=== PATIENT | female | born 1930 | race Caucasian/White ===

== ENCOUNTER 2017-08-08 01:28 | Inpatient (IN) | payer MEDICARE ==
--- NOTE | 2017-08-08 02:33 | ED ---
Lower Extremity Injury HPI - General Chief Complaint: Extremity Injury, Lower Stated Complaint: Left Leg Injury Time Seen by Provider: 08/08/17 01:58 Source: patient, family Mode of arrival: EMS Limitations: no limitations - History of Present Illness Initial Comments: 87 years old female transferred from [facility], ER physician on duty requested to transfer to [facility] for fracture and family was requesting the patient to be treated and [facility]. I discussed that with the on-call orthopedic surgeon Dr. Edmond, Dr. Edmond agreed to transfer. On arrival patient is complaining about left hip pain no other complaints at all daughter found her on the floor there was no head injury no neck injury no chest pain no shortness of breath no abdominal pain no frequency urgency dysuria - Related Data Home Medications Medication Instructions Recorded Confirmed ALPRAZolam [ALPRAZolam] 0.25 mg PO BID 05/25/16 05/25/16 Albuterol Inhaler [Ventolin Hfa 1 puff INHALATION RT-TID 05/25/16 05/25/16 Inhaler] Aspirin EC [Ecotrin] 81 mg PO DAILY 05/25/16 05/25/16 Budesonide [Pulmicort] 0.5 mg INHALATION RT-BID 05/25/16 05/25/16 Docusate [Colace] 100 mg PO HS 05/25/16 05/25/16 Donepezil [Aricept] 5 mg PO HS 05/25/16 05/25/16 Enalapril [Vasotec] 20 mg PO BID 05/25/16 05/25/16 Fluticasone Propionate 1 spray EA NOSTRIL DAILY 05/25/16 05/25/16 Fluticasone Propionate [Flovent 2 puff INHALATION RT-DAILY PRN 05/25/16 05/25/16 Hfa 110mcg] Ipratropium-Albuterol Nebulize 3 ml INHALATION RT-QID 05/25/16 05/25/16 [Duoneb 0.5 mg-3 mg/3 ml Soln] Levothyroxine Sodium [Synthroid] 88 mcg PO DAILY@0600 05/25/16 05/25/16 Montelukast Sodium [Singulair] 10 mg PO HS 05/25/16 05/25/16 Omalizumab [Xolair] 150 mg SQ Q30D 05/25/16 05/25/16 Omeprazole [PriLOSEC] 20 mg PO AC-BRKFST 05/25/16 05/25/16 Sertraline HCl [Sertraline HCl] 50 mg PO DAILY 05/25/16 05/25/16 Simvastatin [Zocor] 20 mg PO HS 05/25/16 05/25/16 amLODIPine [Norvasc] 10 mg PO DAILY@1200 05/25/16 05/25/16 guaiFENesin SYRUP 100MG/5ML 5 ml PO Q4H PRN 05/25/16 05/25/16 [Robitussin] predniSONE [predniSONE] 10 mg PO DAILY 05/25/16 05/25/16 Allergies Allergy/AdvReac Type Severity Reaction Status Date / Time hydrocodone bitartrate AdvReac Nausea Verified 05/25/16 13:02 [From Vicodin] propoxyphene napsylate AdvReac Nausea Verified 05/25/16 13:02 [From Darvocet-N 100] Review of Systems ROS Statement: Those systems with pertinent positive or pertinent negative responses have been documented in the HPI. ROS Other: All systems not noted in ROS Statement are negative. Past Medical History Past Medical History: Asthma, COPD, Dementia, GERD/Reflux, Hyperlipidemia, Hypertension, Thyroid Disorder History of Any Multi-Drug Resistant Organisms: None Reported Past Surgical History: Orthopedic Surgery Additional Past Surgical History / Comment(s): Shoulder replacement. Past Psychological History: Depression Smoking Status: Current some day smoker Past Alcohol Use History: None Reported Past Drug Use History: None Reported General Exam - General Exam Comments Initial Comments: General: The patient is awake and alert, in no distress, and does not appear acutely ill. Skin: Skin is warm and dry and no rashes or lesions are noted. Eye: Pupils are equal, round and reactive to light, extra-ocular movements are intact; there is normal conjunctiva bilaterally. Ears, nose, mouth and throat: There are moist mucous membranes and no oral lesions. Neck: The neck is supple, there is no tenderness or JVD. Cardiovascular: There is a regular rate and rhythm. No murmur, rub or gallop is appreciated. Respiratory: To auscultation bilateral, no wheezing no rhonchi no distress respiratory lee noticed Gastrointestinal: Soft, non-distended, non-tender abdomen without masses or organomegaly noted. There is no rebound or guarding present. Bowel sounds are unremarkable. Back: There is no tenderness to palpation in the midline. There is no obvious deformity. Musculoskeletal: Left leg is shorter than the right, is externally rotated, patient is able to wiggle her toes no neurovascular compromise noticed Neurological: CN II-XII intact, Cranial nerves III through XII are intact. There are no obvious motor or sensory deficits. Coordination appears grossly intact. Speech is normal. Psychiatric: Cooperative, appropriate mood & affect, normal judgment. Limitations: no limitations Course Vital Signs 08/08/17 01:30 Temperature 97.3 F L Pulse Rate 85 Respiratory 16 Rate Blood Pressure 169/84 O2 Sat by Pulse 94 L Oximetry Patient's labs done at [facility] were reviewed, white count is 16, respiratory panel is normal except a slightly low sodium 129, urinalysis is negative chest x-ray is unremarkable left hip x-ray showed left hip fracture. She be admitted to Dr. Edmond's service service Disposition Clinical Impression: Hip fracture, left Disposition: ADMITTED IP TO THIS HOSP Condition: Good Referrals: Tegan Jeffries MD [Primary Care Provider] - 1-2 days
[2017-08-08] MEDS ORDERED: ONDANSETRON 4 MG/2 ML VIAL IVP PRN (02:38)
[2017-08-08] MEDS ORDERED: NALOXONE 0.4 MG/ML 1 ML VIAL IV PRN ×2 (02:38→14:34)
[2017-08-08] MEDS ORDERED: guaiFENesin SYRUP 100MG/5ML 200 MG/10 ML CUP PO PRN (02:45)
[2017-08-08] MEDS ORDERED: OMALIZUMAB 150 MG VIAL SQ SCH (02:45)
[2017-08-08] MEDS ORDERED: FLUTICASONE PROPIONATE INHALATION PRN (02:45)
[2017-08-08] MEDS ORDERED: HYDROmorphone 1 MG/ML 1 ML SYRINGE IVP STA (02:47)
[2017-08-08] MEDS ORDERED: HYDROmorphone 0.5 MG/0.5 ML SYRINGE ONE (03:30)
[2017-08-08] MEDS ORDERED: ONDANSETRON 4 MG/2 ML VIAL ONE (03:30)
[2017-08-08] MEDS: BUDESONIDE 0.5 MG/2 ML NEBU INHALATION SCH ×2 (07:16→20:07)
[2017-08-08] MEDS: IPRATROPIUM-ALBUTEROL 3 ML NEB INHALATION SCH ×4 (07:16→20:07)
[2017-08-08] MEDS ORDERED: ALBUTEROL INHALER 60 PUFF/8 GM INHALER INHALATION SCH (08:00)
[2017-08-08] MEDS: ALPRAZolam 0.25 MG TAB PO SCH (08:23)
[2017-08-08] MEDS: PANTOPRAZOLE 40 MG TABLET PO SCH (08:32)
[2017-08-08] MEDS: predniSONE 10 MG TAB PO SCH (08:32)
[2017-08-08] MEDS: LEVOTHYROXINE 88 MCG TAB PO SCH (08:32)
[2017-08-08] MEDS: SERTRALINE 50 MG TAB PO SCH (08:32)
[2017-08-08] MEDS: FLUTICASONE 50MCG/SPRAY NASAL 16GM EA NOSTRIL SCH (08:32)
[2017-08-08] MEDS: amLODIPine 10 MG TAB PO SCH (08:32)
[2017-08-08] MEDS: LISINOPRIL 20 MG TAB PO SCH ×2 (08:32→21:50)
[2017-08-08] MEDS: DEXTROSE 5%-0.9% NACL 1,000 ML IV SCH ×2 (09:05→16:24)
[2017-08-08] MEDS: HYDROmorphone 0.5 MG/0.5 ML SYRINGE IVP PRN ×2 (09:05→19:25)
--- NOTE | 2017-08-08 09:13 | P.HPOR ---
<Gloria Oglesby L - Last Filed: 08/08/17 09:01> History of Present Illness H&P Date: 08/08/17 This is an 87-year-old female who is admitted for left hip fracture. Patient is a poor historian and daughter is present. Patient's daughter states around 9 :30 PM last night she heard a noise in the patient's room. When the daughter went to check on the patient she found her lying flat on the floor next to her bed complaining of left leg pain. The daughter at this point called EMS and the patient was taken to [facility]. X-rays showed a left hip fracture and patient's family requested that the patient be transferred to [facility]. Patient is admitted for orthopedic evaluation. Patient denies any numbness, weakness, tingling. Review of Systems See HPI. Past Medical History Past Medical History: Asthma, COPD, Dementia, GERD/Reflux, Hyperlipidemia, Hypertension, Thyroid Disorder Additional Past Medical History / Comment(s): Severe reaction to general anesthesia in 2012, patient was severely weak, and "sick" according to daughter. Patient spent 2 weeks in rehab facility History of Any Multi-Drug Resistant Organisms: None Reported Past Surgical History: Orthopedic Surgery Additional Past Surgical History / Comment(s): Shoulder replacement. Past Anesthesia/Blood Transfusion Reactions: Previous Problems w/ Anesthesia Additional Psychological History / Comment(s): Grief when . Has been diagnosed with failure to thrive Smoking Status: Current some day smoker Past Alcohol Use History: None Reported Past Drug Use History: None Reported Medications and Allergies Home Medications Medication Instructions Recorded Confirmed Type Albuterol Inhaler [Ventolin Hfa 2 puff INHALATION RT-TID 05/25/16 08/08/17 History Inhaler] Aspirin EC [Ecotrin] 81 mg PO DAILY 05/25/16 08/08/17 History Budesonide [Pulmicort] 0.5 mg INHALATION RT-BID 05/25/16 08/08/17 History Enalapril [Vasotec] 20 mg PO BID 05/25/16 08/08/17 History Fluticasone Propionate 1 spray EA NOSTRIL DAILY 05/25/16 08/08/17 History Ipratropium-Albuterol Nebulize 3 ml INHALATION RT-QID 05/25/16 08/08/17 History [Duoneb 0.5 mg-3 mg/3 ml Soln] Levothyroxine Sodium [Synthroid] 88 mcg PO DAILY@0600 05/25/16 08/08/17 History Montelukast Sodium [Singulair] 10 mg PO HS 05/25/16 08/08/17 History Omalizumab [Xolair] 150 mg SQ Q30D 05/25/16 08/08/17 History Sertraline HCl [Sertraline HCl] 50 mg PO DAILY 05/25/16 08/08/17 History Simvastatin [Zocor] 20 mg PO HS 05/25/16 08/08/17 History amLODIPine [Norvasc] 10 mg PO DAILY@1200 05/25/16 08/08/17 History predniSONE [predniSONE] 10 mg PO DAILY 05/25/16 08/08/17 History Calcium Carb-Vit D 500Mg-200Un 2 tab PO DAILY 08/08/17 08/08/17 History [Oscal 500+D] Donepezil [Aricept] 10 mg PO HS 08/08/17 08/08/17 History Multivitamins, Thera [Multivitamin 1 tab PO DAILY 08/08/17 08/08/17 History (formulary)] Allergies Allergy/AdvReac Type Severity Reaction Status Date / Time hydrocodone bitartrate AdvReac Nausea Verified 08/08/17 11:57 [From Vicodin] propoxyphene napsylate AdvReac Nausea Verified 08/08/17 11:57 [From Darvocet-N 100] Physical Examination On exam patient is lying comfortably in bed sleeping. Patient's left lower extremity is shortened and externally rotated. There is some erythema over the lateral malleolus of the left ankle. Calf is soft and nontender. Dorsalis pedis pulses 2+. Neurovascular status intact. There is no tenderness over bilateral shoulders, bilateral upper extremities including wrists and hand and there is no tenderness over the right lower extremity. There is an abrasion to the bhat of the right lower extremity. There is some bruising to the left upper extremity but there is no associated tenderness in these areas. Neurovascular status to bilateral upper extremities is intact. Results X-rays of the left hip are reviewed showing a subcapital fracture left femur. Assessment and Plan (1) Closed left hip fracture Current Visit: Yes Status: Acute Code(s): S72.002A - FRACTURE OF UNSP PART OF NECK OF LEFT FEMUR, INIT SNOMED Code(s): 060794397 Plan: #1. Patient is to remain NPO. #2. Medical clearance pending #3. Patient is scheduled for a left hemiarthroplasty at [address] Noel Edmond today if cleared medically. <Flaquita Cuevas - Last Filed: 08/08/17 13:10> Physical Examination Osteopathic Statement: *. No significant issues noted on an osteopathic structural exam other than those noted in the History and Physical/Consult. Assessment and Plan Assessment: I saw the patient at bedside and discuss case with Dr. Edmond as well as with medicine doctors. I reviewed the images myself. I discussed the issues with the patient at length and the family. Patient had sustained a comminuted femoral neck fracture due to her fall. She is unable to mobilize and her bed and despite her other medical issues we feel that is the best option for her to pursue surgical intervention with hip hemiarthroplasty. This will allow her some mobilization and ease of movement and care. We discussed this at length with her and her family and they like to proceed with surgical intervention as soon as possible. We discussed the risk of occasions alternatives and benefits. We answered questions lesser ability C understand they've elected proceed with surgical intervention and signed informed consent.
--- NOTE | 2017-08-08 11:39 | P.CONS ---
History of Present Illness - Reason for Consult Consult date: 08/08/17 Medical clearance - Chief Complaint fall - History of Present Illness 87-year-old female who presented to an outside emergency room after she sustained a fall at home in the left side. Patient was evaluated and was found to have left hip fracture. Jacobo Castellanos currently being evaluated for pelvic surgery this afternoon. I was asked to see her for medical clearance. Patient is to the face. Her daughter at bedside. Patient has underlying dementia and very poor historian. Apparently she lives at home with her family and she is usually able to get up and walk around. Patient herself denies any chest pain shortness of breath. Review of Systems Review of system: 14 points review of systems were obtained and were negative except to what were mentioned in the HPI. Past Medical History Past Medical History: Asthma, COPD, Dementia, GERD/Reflux, Hyperlipidemia, Hypertension, Thyroid Disorder Additional Past Medical History / Comment(s): Severe reaction to general anesthesia in 2012, patient was severely weak, and "sick" according to daughter. Patient spent 2 weeks in rehab facility History of Any Multi-Drug Resistant Organisms: None Reported Past Surgical History: Orthopedic Surgery Additional Past Surgical History / Comment(s): Shoulder replacement. Past Anesthesia/Blood Transfusion Reactions: Previous Problems w/ Anesthesia Additional Psychological History / Comment(s): Grief when . Has been diagnosed with failure to thrive Smoking Status: Current some day smoker Past Alcohol Use History: None Reported Past Drug Use History: None Reported Medications and Allergies Home Medications Medication Instructions Recorded Confirmed Type Albuterol Inhaler [Ventolin Hfa 2 puff INHALATION RT-TID 05/25/16 08/08/17 History Inhaler] Aspirin EC [Ecotrin] 81 mg PO DAILY 05/25/16 08/08/17 History Budesonide [Pulmicort] 0.5 mg INHALATION RT-BID 05/25/16 08/08/17 History Enalapril [Vasotec] 20 mg PO BID 05/25/16 08/08/17 History Fluticasone Propionate 1 spray EA NOSTRIL DAILY 05/25/16 08/08/17 History Ipratropium-Albuterol Nebulize 3 ml INHALATION RT-QID 05/25/16 08/08/17 History [Duoneb 0.5 mg-3 mg/3 ml Soln] Levothyroxine Sodium [Synthroid] 88 mcg PO DAILY@0600 05/25/16 08/08/17 History Montelukast Sodium [Singulair] 10 mg PO HS 05/25/16 08/08/17 History Omalizumab [Xolair] 150 mg SQ Q30D 05/25/16 08/08/17 History Sertraline HCl [Sertraline HCl] 50 mg PO DAILY 05/25/16 08/08/17 History Simvastatin [Zocor] 20 mg PO HS 05/25/16 08/08/17 History amLODIPine [Norvasc] 10 mg PO DAILY@1200 05/25/16 08/08/17 History predniSONE [predniSONE] 10 mg PO DAILY 05/25/16 08/08/17 History Calcium Carb-Vit D 500Mg-200Un 2 tab PO DAILY 08/08/17 08/08/17 History [Oscal 500+D] Donepezil [Aricept] 10 mg PO HS 08/08/17 08/08/17 History Multivitamins, Thera [Multivitamin 1 tab PO DAILY 08/08/17 08/08/17 History (formulary)] Allergies Allergy/AdvReac Type Severity Reaction Status Date / Time hydrocodone bitartrate AdvReac Nausea Verified 05/25/16 13:02 [From Vicodin] propoxyphene napsylate AdvReac Nausea Verified 05/25/16 13:02 [From Darvocet-N 100] Physical Exam Vitals: Vital Signs Temp Pulse Pulse Pulse Resp BP BP 08/08/17 07:30 112 H 08/08/17 07:16 108 H 08/08/17 07:00 98.5 F 114 H 140/73 08/08/17 06:55 08/08/17 04:30 96 08/08/17 03:15 97.5 F L 110 H 16 165/79 08/08/17 02:55 91 18 166/83 08/08/17 01:30 97.3 F L 85 16 169/84 Pulse Ox 08/08/17 07:30 08/08/17 07:16 08/08/17 07:00 93 L 08/08/17 06:55 90 L 08/08/17 04:30 08/08/17 03:15 92 L 08/08/17 02:55 92 L 08/08/17 01:30 94 L Intake and Output 08/07/17 08/08/17 08/08/17 22:59 06:59 14:59 Other: Voiding Method Indwelling Catheter Indwelling Catheter Weight 36.287 kg General: The patient is awake and alert, in no distress Eye: there is normal conjunctiva bilaterally. Neck: The neck is supple, there is no JVD. Cardiovascular: Normal S1-S2, no S3-S4, no murmurs. Respiratory: Lungs clear to auscultation bilaterally Gastrointestinal: Abdomen is soft, nontender Musculoskeletal: There is no pedal edema. Neurological:. Speech is normal. Skin: Skin is warm and dry Assessment and Plan Plan: 1. Preoperative clearance: Today, I reviewed her lab work results and twelve- lead EKG. Patient is an acceptable risk for scheduled surgery. She is medically clear 2. Left hip fracture awaiting surgical repair this afternoon 3. Essential hypertension, blood pressure well-controlled 4. COPD with no evidence of exacerbation 5. hypothyroidism Today, I reviewed her medication list and lab work results. Continue current regimen. Thank you very much for the consultation. I will continue to follow up on the patient closely.
[2017-08-08] MEDS ORDERED: IV FLUID CONTINUATION 1,000 ML IV ONE (11:50)
[2017-08-08] MEDS ORDERED: fentaNYL (PF) 50 MCG/ML 2 ML AMP IV ONE (12:54)
[2017-08-08] MEDS ORDERED: KETAMINE 10 MG/ML 20 ML VIAL ONE (12:59)
[2017-08-08] MEDS ORDERED: MIDAZOLAM 2 MG/2 ML VIAL ONE (12:59)
[2017-08-08] MEDS ORDERED: PHENYLEPHRINE-0.9% NACL SYG 1 MG/10 ML SYRINGE ONE (12:59)
[2017-08-08] MEDS ORDERED: SODIUM CHLORIDE 0.9% 50 ML with ceFAZolin 2,000 MG IV ONE ×2 (13:30)
[2017-08-08 13:49] VITALS: BMI 17.3
[2017-08-08] MEDS ORDERED: LACTATED RINGERS 1,000 ML IV ONE (13:53)
[2017-08-08] MEDS ORDERED: ceFAZolin 3,000 MG in SODIUM CHLORIDE 0.9% IRRIGATIO 3,000 ML IRRIGATION ONE (13:53)
[2017-08-08] MEDS ORDERED: HYDROmorphone 0.5 MG/0.5 ML SYRINGE IVP PRN (14:34)
--- NOTE | 2017-08-08 14:34 | P.OP ---
Date of Procedure: 08/08/17 Preoperative Diagnosis: Left hip femoral neck fracture, acute displaced secondary to fall Postoperative Diagnosis: Same Anesthesia: spinal Pathology: other (Femoral head to pathology) Condition: stable Disposition: PACU Description of Procedure: Preoperative diagnosis: Left Femoral neck fracture, acute displaced secondary to fall Postoperative diagnosis: Same Procedure: Left Hip hemiarthroplasty Surgeon: Dr. Mason White.: Isidoro Butler who is present that the entire the case persistence during positioning dissection exposure placement of hardware and closure Anesthesia: Spinal per Dr. Jordan Estimated blood loss: Approximately 50 mL Components implanted: [employer] collarless fracture stem unipolar size 1 with a 43 mm head and -3 neck Disposition: To recovery room in good stable condition Operative indications The patient sustained a injury and suffered a femoral neck fracture which was displaced and angulated. She has multiple medical issues and has limited ambulation and had a fall from her bed. She was having severe pain at her hip with any sort of motion and was unable to sit up or move in bed at all due to her new hip fracture. We were involved in the case in regard to his hip fracture. After evaluation it was determined that they would be a candidate for hip hemiarthroplasty via surgical intervention. This would give them the best chance of mobilization and ambulation. We discussed the range of treatment options from conservative to surgical. They elected proceed with surgical intervention. We answered their questions to the best of our ability healing which they can understand. They signed an informed consent. Operative summary After obtaining informed consent evaluation by anesthesia, preoperative evaluation and clearance for medical service, the patient was identified and prepped [place] area and the surgical site was marked. There brought to the operating room where the given appropriate anesthesia by the anesthesia department in standard fashion without any complications. Once the anesthesia was established we were able to position the patient. There placed in a lateral decubitus position with the operative side up being careful to pad any bony prominences and pressure points and place a excellent roll appropriately. The airway and C-spine was monitored continuously. Once patient was well positioned lower extremity was prepped and draped in normal standard sterile fashion. An appropriate keystone protocol and timeout was completed and were able to proceed with surgery. A curvilinear incision was established over the greater trochanter. Dissection was taken down to the tensor fascia montserrat which was split in line with its fibers and extended proximally into the gluteal fibers. We performed a posterior lateral approach. A Charnley retractor was established. The trochanteric bursa was inflamed and removed. I was able to then dissect down off the posterior aspect of the greater trochanter taking the piriformis tendon and the posterior capsule in one full-thickness flap and tacking it with suture. This expose the fracture at the femoral neck which was easily identified. A guide was used to establish the appropriate femoral neck cut and a bone- cutting saw was used to establish the femoral neck cut and good alignment and good position. All the bony fragments were removed. I was then able to use a corkscrew device to remove the femoral head from the acetabulum. Any loose fragments in the acetabulum were removed. The femoral head was measured for the appropriate size implant and then passed off for pathology. Appropriate retractors were placed and I established a lateral box cut chisel. I then used a starting reamer to establish the femoral canal area I then sequentially reamed with sequential reamers until we had good bony chatter distally. With this we then started to broach with sequential broaches to the appropriate sized to we had good fit and fill. There is no evidence any fracture in the possible femur. With the appropriate size broach well seated and stable I placed the trial neck and head. A gentle reduction was performed to get good reduction. The hip was taken through a good range of motion and found to be stable in the position of sleep and through a range of motion. It had a good shuck test. We were able to then dislocate the trial prosthesis. The broach was found to remain stable. It was then removed. The wound was copiously irrigated and suctioned dry with pulsatile lavage. The appropriate size femoral stem was chosen and positioned and placed in good alignment and good position with excellent fit and fill seated appropriately over the calcar. It was checked and found to be stable. The trunnion was cleaned and dried the femoral head was then positioned over the femoral neck malleted in position checked and found to be stable. The hip prosthesis was then gently reduced back into the acetabulum and found to have excellent position and excellent stability and excellent range of motion with stability. There is no evidence of dislocation or fracture. The wound was copiously irrigated and suctioned dry. We are able to proceed with closure. The piriformis and posterior capsule were reapproximated to the posterior aspect of the greater trochanter with transosseous stitches. The wound was irrigated and suctioned dry. The fascia was closed with #2 Quill for watertight closure. Subcutaneous tissue was irrigated and suctioned dry. Subcu tissues closed with 2-0 Vicryl subcuticular tissue was closed with 30 Quill. Wound is clean and dried and dressed with Dermabond Adaptic 4 x 4's ABDs and tape. Drapes were broken down, the hip was held in stable position, and an abduction pillow was placed. The patient was then transferred back to their hospital bed being careful to maintain the hip and C-spine alignment and airway. Once stable to patient was transferred back to the postanesthesia care unit to be readmitted for pain control and DVT prophylaxis medical management and monitoring and mobilization we will continue follow patient closely throughout their postoperative course.
--- NOTE | 2017-08-08 15:06 | XR ---
Left hip HISTORY: Status post hemiarthroplasty Single frontal view of the left hip Patient is status post left hip hemiarthroplasty. Bone mineralization is reduced. Alignment is anatom ic. Disease present in the soft tissues. There are atherosclerotic vascular calcifications. IMPRESSION: Orthopedic follow-up
--- NOTE | 2017-08-08 16:56 | CDI ---
[facility] [place] [address] [place] [address] Documentation Clarification Form Date: 08/08/171652 From: Patsy Ko RN, CCDS Admit Date: 08/08/17237 Patient Name: Merari Schilling Dr. 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 Mild Protein-Calorie Malnutrition Moderate Protein-Calorie Malnutrition Severe Protein-Calorie Malnutrition Other condition, please specify Unable to determine Please document in your progress notes and discharge summary in order to capture severity of illness and risk of mortality. Include clinical findings that support your diagnosis. FYI: Press F11 to launch patient chart. This form is not part of the Legal Medical Record MTDD
[2017-08-08] MEDS: ceFAZolin 2 GM in SODIUM CHLORIDE 0.9% 100 ML IVPB SCH (17:04)
[2017-08-08 18:00] LABS: Basophils # (A) 0.1 k/uL (0-0.2); Basophils % (A) 0 %; CH 30.8; CHCM 32.2; Eosinophils # (A) 0.1 k/uL (0-0.7); Eosinophils % (A) 1 %; HCT 37.6 % (34.0-46.0); HDW 2.11; HGB 11.9 gm/dL (11.4-16.0); Luc # (Auto) 0.14; Luc % (Auto) 1; Lymphocytes # (A) 1.3 k/uL (1.0-4.8); Lymphocytes % (A) 10 %; MCH 30.3 pg (25.0-35.0); MCHC 31.6 g/dL (31.0-37.0); MCV 96.2 fL (80.0-100.0); Mean Platelet Volume 7.4; Monocytes # (A) 0.9 k/uL (0-1.0); Monocytes % (A) 7 %; Neutrophils # (A) 10.2 k/uL (1.3-7.7); Neutrophils % (A) 80 %; RBC 3.91 m/uL (3.80-5.40); RDW 14.5 % (11.5-15.5); WBC 12.7 k/uL (3.8-10.6); WBC (Perox) 13.62
[2017-08-08] MEDS: ATORVASTATIN 10 MG TAB PO SCH (21:49)
[2017-08-08] MEDS: HEPARIN SODIUM,PORCINE 5,000 UNIT/ML 1 ML VIAL SQ SCH (21:50)
[2017-08-08] MEDS: DONEPEZIL 10 MG TAB PO SCH (21:50)
[2017-08-08] MEDS: MONTELUKAST 10 MG TAB PO SCH (21:50)
[2017-08-08] MEDS: SENNOSIDES-DOCUSATE SODIUM 1 EACH TAB PO SCH (21:50)
[2017-08-09] MEDS: HYDROmorphone 0.5 MG/0.5 ML SYRINGE IVP PRN ×2 (00:11→05:43)
[2017-08-09] MEDS: ceFAZolin 2 GM in SODIUM CHLORIDE 0.9% 100 ML IVPB SCH (00:11)
[2017-08-09] MEDS: ALPRAZolam 0.25 MG TAB PO SCH ×3 (02:40→21:16)
[2017-08-09] MEDS: DEXTROSE 5%-0.9% NACL 1,000 ML IV SCH ×2 (05:45→14:59)
[2017-08-09] MEDS: LEVOTHYROXINE 88 MCG TAB PO SCH (05:47)
[2017-08-09] MEDS: IPRATROPIUM-ALBUTEROL 3 ML NEB INHALATION SCH ×4 (07:46→19:58)
[2017-08-09] MEDS: BUDESONIDE 0.5 MG/2 ML NEBU INHALATION SCH ×2 (07:46→19:58)
[2017-08-09] MEDS: SERTRALINE 50 MG TAB PO SCH (08:17)
[2017-08-09] MEDS: FLUTICASONE 50MCG/SPRAY NASAL 16GM EA NOSTRIL SCH ×2 (08:17→08:23)
[2017-08-09] MEDS: predniSONE 10 MG TAB PO SCH (08:18)
[2017-08-09] MEDS: CALCIUM CARB-VIT D 500MG-200UN 1 EACH TAB PO SCH (08:18)
[2017-08-09] MEDS: LISINOPRIL 20 MG TAB PO SCH ×2 (08:18→21:20)
[2017-08-09] MEDS: PANTOPRAZOLE 40 MG TABLET PO SCH (08:18)
[2017-08-09] MEDS: ASPIRIN 81 MG PO SCH (08:18)
[2017-08-09] MEDS: HEPARIN SODIUM,PORCINE 5,000 UNIT/ML 1 ML VIAL SQ SCH ×2 (08:26→21:21)
[2017-08-09] MEDS: ENOXAPARIN 30 MG/0.3 ML SYRINGE SQ SCH (08:26)
--- NOTE | 2017-08-09 09:29 | P.PN ---
Progress Note - Text Progress Note Date: 08/09/17 Postoperative day #1 Patient is seen and examined today at bedside. The patient has some pain around the surgical site as expected. Pain is being controlled with medication. She is awake and alert and answering questions but is somewhat confused to her environment. She denies any nausea or vomiting Physical Exam Afebrile with stable vital signs Abdomen is soft nontender. Chest has good excursion deep and space expiration The incision site is clean dry and intact. No erythema there is no purulence. Her thigh is soft. There is no active drainage from her incision site. Extremities have not had neurologic change from prior to surgery. She has sustained dorsal flexion plantarflexion and EHL intact. Her left hip is less painful and that she is able to internally actually rotated passively Calves and thighs were soft nontender without evidence of DVT. Assessment/Plan Postoperative day #1 status post left hip hemiarthroplasty for her femoral neck fracture Patient is progressing as expected from the surgery. We will continue to increase the patient's mobilization with therapy. She may weight-bear as tolerated but should continue with her hip dislocation precautions. The patient has some confusion which is essentially her baseline and she is overall comfortable and cooperative. She will need placement posthospitalization which make her potentially tomorrow if she is able from a medical standpoint. We will continue pain control with oral or IV medications. We'll continue to follow patient closely.
[2017-08-09] MEDS: Acetaminophen-Codeine 300-30mg TAB PO PRN ×2 (11:02→21:16)
[2017-08-09] MEDS: amLODIPine 10 MG TAB PO SCH (11:54)
[2017-08-09] MEDS: MULTIVITAMINS, THERA 1 EACH TAB PO SCH (11:54)
--- NOTE | 2017-08-09 12:13 | P.PN ---
Subjective Principal diagnosis: Hip fracture Patient is doing well today. She tolerated the surgery well. She was up in the chair when I saw her. Objective - Vital Signs Vital signs: Vital Signs Temp 97.7 F 08/09/17 07:00 Pulse 92 08/09/17 08:02 Resp 16 08/09/17 07:00 BP 106/59 08/09/17 11:54 Pulse Ox 89 L 08/09/17 07:00 Intake & Output 08/08/17 08/09/17 08/09/17 18:59 06:59 18:59 Intake Total 1033 1428 Output Total 1100 1280 Balance -67 148 Weight 36.287 kg Intake: IV 1033 1328 Dextrose 5%-0.9% NaCl 1, 332 1328 000 ml @ 83 mls/hr IV . Q12H3M MARY Rx#:[id number] Intake, IV Titration 100 Amount ceFAZolin 2 gm In Sodium 100 Chloride 0.9% 100 ml @ 100 mls/hr IVPB Q8HR MARY Rx#:[id number] Output: Urine 1000 1280 Uretheral (Woodson) 400 Estimated Blood Loss 100 Other: Voiding Method Indwelling Catheter Indwelling Catheter Indwelling Catheter - Exam General: The patient is awake and alert, in no distress Eye: there is normal conjunctiva bilaterally. Neck: The neck is supple, there is no JVD. Cardiovascular: Normal S1-S2, no S3-S4, no murmurs. Respiratory: Lungs clear to auscultation bilaterally Gastrointestinal: Abdomen is soft, nontender Musculoskeletal: There is no pedal edema. Neurological:. Speech is normal. Skin: Skin is warm and dry - Labs CBC & Chem 7: 08/08/17 17:37 Labs: Abnormal Lab Results - Last 24 Hours (Table) 08/08/17 Range/Units 17:37 WBC 12.7 H (3.8-10.6) k/uL Neutrophils # 10.2 H (1.3-7.7) k/uL Assessment and Plan Plan: 1. Left hip fracture status post left hip hemiarthroplasty. Continue postoperative care. 2. Physical debility, awaiting PT/OT. Family are interested in rehab. 3. Essential hypertension, blood pressure well-controlled 4. COPD with no evidence of exacerbation 5. hypothyroidism Today, I reviewed her medication list and lab work results. Continue current regimen. Thank you very much for the consultation. I will continue to follow up on the patient closely.
--- NOTE | 2017-08-09 13:46 | CDI ---
In responding to this query, please exercise your independent professional judgment. The [facility] Coding Staff and Clinical Documentation Specialists appreciate your assistance in clarifying documentation, maintaining compliance with coding guidelines, accurately documenting patients condition and capturing severity of illness. The fact that a question is asked does not imply that any particular answer is desired or expected. Communication forms are a method of clarifying documentation and are not made part of the Legal Health Record. Thank you in advance for your clarification. Last Revision, August 2015 Mahi Castellanos [address] [place] [place] [address] Documentation Clarification Form 2nd request Date: 08/08/2017 4:46:00 PM From: Patsy Ko RN, CCDS Admit Date: 08/08/2017 2:38:00 AM Patient Name: Merari Schilling Visit Number: [id number] Dr. Sabra Chaudhari History/Risk Factors: Hx of Adult failure to thrive, Asthma, COPD, Dementia, HTN, Hypothyroid Clinical Indicators: Labs: Albumin/ Pre albumin/Total Protein: Current BMI: 17.3 Insufficient energy intake: NPO Loss of subcutaneous fat: Appears underweight per dietary consult Loss of muscle mass: Stage 2 PU on buttocks and ankle per dietary Consult Fluid accumulation: Decreased hand horse doctor strength: Treatment: Dietary Consult: Completed 08/08 Supplements: Enlive TID Lab monitoring: AM Daily In your professional opinion, can you please clarify if these findings signify one of the following conditions? Mild Protein-Calorie Malnutrition Moderate Protein-Calorie Malnutrition Severe Protein-Calorie Malnutrition Other condition, please specify Unable to determine Please document in your progress notes and discharge summary in order to capture severity of illness and risk of mortality. Include clinical findings that support your diagnosis. FYI: Press F11 to launch patient chart. HOWARD
[2017-08-09] MEDS: SENNOSIDES-DOCUSATE SODIUM 1 EACH TAB PO SCH (21:16)
[2017-08-09] MEDS: MONTELUKAST 10 MG TAB PO SCH (21:19)
[2017-08-09] MEDS: DONEPEZIL 10 MG TAB PO SCH (21:20)
[2017-08-09] MEDS: ATORVASTATIN 10 MG TAB PO SCH (21:20)
[2017-08-10] MEDS: DEXTROSE 5%-0.9% NACL 1,000 ML IV SCH ×2 (02:15→15:45)
[2017-08-10] MEDS: LEVOTHYROXINE 88 MCG TAB PO SCH (05:01)
[2017-08-10] MEDS: Acetaminophen-Codeine 300-30mg TAB PO PRN ×5 (05:03→21:00)
[2017-08-10 07:56] LABS: Basophils % (A) 0 %; CH 29.7; CHCM 31.3; Eosinophils # (A) 0.1 k/uL (0-0.7); Eosinophils % (A) 0 %; HCT 31.7 % (34.0-46.0); HDW 2.09; Luc # (Auto) 0.26; Luc % (Auto) 2; Lymphocytes # (A) 1.3 k/uL (1.0-4.8); Lymphocytes % (A) 9 %; MCH 29.6 pg (25.0-35.0); MCV 95.5 fL (80.0-100.0); Mean Platelet Volume 7.3; Monocytes # (A) 1.1 k/uL (0-1.0); Monocytes % (A) 8 %; Neutrophils # (A) 10.7 k/uL (1.3-7.7); Neutrophils % (A) 80 %; RBC 3.32 m/uL (3.80-5.40); RDW 13.6 % (11.5-15.5); WBC 13.4 k/uL (3.8-10.6); WBC (Perox) 13.68
[2017-08-10 07:59] LABS: HGB 9.8 gm/dL (11.4-16.0)
[2017-08-10] MEDS: IPRATROPIUM-ALBUTEROL 3 ML NEB INHALATION SCH ×4 (08:12→19:35)
[2017-08-10] MEDS: BUDESONIDE 0.5 MG/2 ML NEBU INHALATION SCH ×2 (08:12→19:35)
[2017-08-10] MEDS: ENOXAPARIN 30 MG/0.3 ML SYRINGE SQ SCH (08:38)
[2017-08-10] MEDS: CALCIUM CARB-VIT D 500MG-200UN 1 EACH TAB PO SCH (08:38)
[2017-08-10] MEDS: ALPRAZolam 0.25 MG TAB PO SCH ×2 (08:39→20:38)
[2017-08-10] MEDS: predniSONE 10 MG TAB PO SCH (08:39)
[2017-08-10] MEDS: SERTRALINE 50 MG TAB PO SCH (08:39)
[2017-08-10] MEDS: PANTOPRAZOLE 40 MG TABLET PO SCH (08:39)
[2017-08-10] MEDS: FLUTICASONE 50MCG/SPRAY NASAL 16GM EA NOSTRIL SCH (08:39)
[2017-08-10] MEDS: ASPIRIN 81 MG PO SCH (08:39)
[2017-08-10] MEDS: LISINOPRIL 20 MG TAB PO SCH ×2 (08:49→21:32)
--- NOTE | 2017-08-10 08:59 | P.PN ---
Subjective Progress Note Date: 08/10/17 This is an 87-year-old female who is status post left hemiarthroplasty. This is postoperative day #1. Patient is lying in bed comfortably today. Patient has no new complaints today. Objective - Vital Signs Vital signs: Vital Signs Temp 97.7 F 08/10/17 07:00 Pulse 80 08/10/17 08:15 Resp 16 08/10/17 08:15 BP 110/61 08/10/17 07:00 Pulse Ox 99 08/10/17 08:15 Intake & Output 08/09/17 08/10/17 08/10/17 18:59 06:59 18:59 Intake Total 500 Output Total 800 200 Balance -300 -200 Intake: Oral 500 Output: Urine 800 200 Uretheral (Woodson) 800 Other: Voiding Method Indwelling Catheter Diaper # Voids 1 - Exam Patient is lying in bed in no acute distress. On exam abductor pillow is in place. There is tenderness over the left hip. Dressing is intact and dry. Calf is soft and non-tender. Patient is able to move the foot and ankle without difficulty. Neurovascular status intact. - Labs CBC & Chem 7: 08/10/17 07:06 Labs: Abnormal Lab Results - Last 24 Hours (Table) 08/10/17 Range/Units 07:06 WBC 13.4 H (3.8-10.6) k/uL RBC 3.32 L (3.80-5.40) m/uL Hgb 9.8 L D (11.4-16.0) gm/dL Hct 31.7 L (34.0-46.0) % Neutrophils # 10.7 H (1.3-7.7) k/uL Monocytes # 1.1 H (0-1.0) k/uL Assessment and Plan (1) Closed left hip fracture Current Visit: Yes Status: Acute Code(s): S72.002A - FRACTURE OF UNSP PART OF NECK OF LEFT FEMUR, INIT SNOMED Code(s): 267574702 (2) S/P hip hemiarthroplasty Current Visit: Yes Status: Acute Code(s): Z96.649 - PRESENCE OF UNSPECIFIED ARTIFICIAL HIP JOINT SNOMED Code(s): 824771241 (3) Hip fracture, left Current Visit: Yes Status: Acute Code(s): S72.002A - FRACTURE OF UNSP PART OF NECK OF LEFT FEMUR, INIT SNOMED Code(s): 156603404 Plan: Continue routine postop care. Continue antocoagulation. Weightbearing as tolerated with a walker Daily dressing changes, keep incision clean and dry Continue hip precautions with abductor pillow Possible discharge to rehab today or tomorrow.
[2017-08-10] MEDS: FERROUS SULFATE 325 MG TAB PO SCH ×2 (09:07→20:39)
[2017-08-10] MEDS ORDERED: SODIUM CHLORIDE 0.9% 250 ML IV ONE (10:36)
--- NOTE | 2017-08-10 11:01 | P.PN ---
Subjective Progress Note Date: 08/10/17 87-year-old female who presented to an outside emergency room after she sustained a fall at home in the left side. Patient was evaluated and was found to have left hip fracture. Jacobo Castellanos currently being evaluated for pelvic surgery this afternoon. I was asked to see her for medical clearance. Patient is to the face. Her daughter at bedside. Patient has underlying dementia and very poor historian. Apparently she lives at home with her family and she is usually able to get up and walk around. Patient herself denies any chest pain shortness of breath. Patient was in hospice before she presented to the emergency room. She was taken off of hospice to proceed with the orthopedic procedure. 08/10/2017 patient had left hip hemiarthroplasty completed on 08/08/2017. Patient is currently sitting in bedside chair. Pain is tolerable. Denies any chest pain or shortness breath. Denies any nausea or vomiting. Passing gas no bowel movement yet. Denies any burning with urination. Patient's blood pressures been on the lower side. Sessile pressure in the 90s. She will receive a small fluid bolus. Parameters have been place her on blood pressure pills Norvasc dose has been decreased from 10-5 mg daily. White count is 13.4. However she is on prednisone which is also a home medication. Objective - Vital Signs Vital signs: Vital Signs Temp 97.7 F 08/10/17 07:00 Pulse 80 08/10/17 08:15 Resp 16 08/10/17 08:15 BP 92/53 08/10/17 10:07 Pulse Ox 99 08/10/17 08:15 Intake & Output 08/09/17 08/10/17 08/10/17 18:59 06:59 18:59 Intake Total 500 Output Total 800 200 Balance -300 -200 Intake: Oral 500 Output: Urine 800 200 Uretheral (Woodson) 800 Other: Voiding Method Indwelling Catheter Diaper # Voids 1 - Exam Head normocephalic Neck supple Lungs clear to auscultation bilaterally no wheezing or crackles Heart regular rate and rhythm S1-S2, no rub or gallop Abdomen is soft nontender nondistended positive bowel sounds no hepatosplenomegaly Extremities no edema. Left hip incision site clean dry and intact. Neuro alert and orientated to 3. Hard of hearing - Labs CBC & Chem 7: 08/10/17 07:06 Labs: Abnormal Lab Results - Last 24 Hours (Table) 08/10/17 Range/Units 07:06 WBC 13.4 H (3.8-10.6) k/uL RBC 3.32 L (3.80-5.40) m/uL Hgb 9.8 L D (11.4-16.0) gm/dL Hct 31.7 L (34.0-46.0) % Neutrophils # 10.7 H (1.3-7.7) k/uL Monocytes # 1.1 H (0-1.0) k/uL Assessment and Plan Plan: 1. Left hip fracture status post left hip hemiarthroplasty. Continue postoperative care. 2. Physical debility, awaiting PT/OT. Family are interested in rehab. 3. Essential hypertension on patient having some episodes of hypotension. Will give a small fluid bolus. Hold lisinopril this morning. Place parameters around both the lisinopril and Norvasc. Decrease Norvasc from 10-5 mg daily. 4. COPD with no evidence of exacerbation 5. hypothyroidism 6. Leukocytosis likely to patient's chronic prednisone. No evidence of infection at incision site. Also will order incentive spirometer. Anticipating discharge to ECF on Sunday DVT prophylaxis Lovenox I performed an examination of the patient and discussed their management with the physician [employer] Business Consultant. I have reviewed the Physician Franchise Business Consultant's notes and agree with the documented findings and plan of care Time with Patient: Greater than 30 (Greater than 50% of the total time spent in counseling and coordination of care.I performed an examination of the patient and discussed their management with the physician Franchise Business Consultant. I have reviewed the Physician Franchise Business Consultant's notes and agree with the documented findings and plan of care)
[2017-08-10] MEDS: SODIUM CHLORIDE 0.9% 1,000 ML IV SCH ×2 (11:04→21:00)
[2017-08-10] MEDS: amLODIPine 5 MG TAB PO SCH (13:06)
[2017-08-10] MEDS: MULTIVITAMINS, THERA 1 EACH TAB PO SCH (13:14)
[2017-08-10] MEDS: MONTELUKAST 10 MG TAB PO SCH (20:38)
[2017-08-10] MEDS: ATORVASTATIN 10 MG TAB PO SCH (20:38)
[2017-08-10] MEDS: SENNOSIDES-DOCUSATE SODIUM 1 EACH TAB PO SCH (20:38)
[2017-08-10] MEDS: DONEPEZIL 10 MG TAB PO SCH (20:39)
[2017-08-11] MEDS: LEVOTHYROXINE 88 MCG TAB PO SCH (05:15)
[2017-08-11] MEDS: BUDESONIDE 0.5 MG/2 ML NEBU INHALATION SCH ×2 (07:19→19:57)
[2017-08-11] MEDS: IPRATROPIUM-ALBUTEROL 3 ML NEB INHALATION SCH ×4 (07:19→19:57)
--- NOTE | 2017-08-11 09:10 | P.PN ---
Subjective Progress Note Date: 08/11/17 This is an 87-year-old female who is status post left hemiarthroplasty. This is postoperative day #2. Patient is lying in bed comfortably today. Patient has no new complaints today. Objective - Vital Signs Vital signs: Vital Signs Temp 97.0 F L 08/11/17 07:59 Pulse 66 08/11/17 07:59 Resp 16 08/11/17 07:59 BP 130/59 08/11/17 07:59 Pulse Ox 95 08/11/17 07:59 Intake & Output 08/10/17 08/11/17 08/11/17 18:59 06:59 18:59 Intake Total 500 415 Balance 500 415 Weight 36.287 kg Intake: Intake, IV Titration 225 Amount Sodium Chloride 0.9% 250 225 ml @ 999 mls/hr IV .Q16M ONE Rx#:[id number] Oral 500 190 Other: Voiding Method Diaper Diaper Diaper # Voids 2 - Exam Patient is resting comfortably in bed in no acute distress. On exam abductor pillow is in place. Dressing is intact and dry. Calf is soft and non-tender. Patient is able to move the foot and ankle without difficulty. Neurovascular status intact. - Labs CBC & Chem 7: 08/10/17 07:06 Assessment and Plan (1) Closed left hip fracture Current Visit: Yes Status: Acute Code(s): S72.002A - FRACTURE OF UNSP PART OF NECK OF LEFT FEMUR, INIT SNOMED Code(s): 109736532 (2) S/P hip hemiarthroplasty Current Visit: Yes Status: Acute Code(s): Z96.649 - PRESENCE OF UNSPECIFIED ARTIFICIAL HIP JOINT SNOMED Code(s): 823426168 (3) Hip fracture, left Current Visit: Yes Status: Acute Code(s): S72.002A - FRACTURE OF UNSP PART OF NECK OF LEFT FEMUR, INIT SNOMED Code(s): 726243271 Plan: Continue routine postop care. Continue antocoagulation. Weightbearing as tolerated with a walker Daily dressing changes, keep incision clean and dry Continue hip precautions with abductor pillow Possible discharge to rehab Sunday.
[2017-08-11] MEDS: CALCIUM CARB-VIT D 500MG-200UN 1 EACH TAB PO SCH (10:09)
[2017-08-11] MEDS: PANTOPRAZOLE 40 MG TABLET PO SCH (10:09)
[2017-08-11] MEDS: ENOXAPARIN 30 MG/0.3 ML SYRINGE SQ SCH (10:09)
[2017-08-11] MEDS: ASPIRIN 81 MG PO SCH (10:09)
[2017-08-11] MEDS: FLUTICASONE 50MCG/SPRAY NASAL 16GM EA NOSTRIL SCH (10:10)
[2017-08-11] MEDS: predniSONE 10 MG TAB PO SCH (10:10)
[2017-08-11] MEDS: FERROUS SULFATE 325 MG TAB PO SCH ×2 (10:10→22:34)
[2017-08-11] MEDS: SERTRALINE 50 MG TAB PO SCH (10:10)
[2017-08-11] MEDS: SODIUM CHLORIDE 0.9% 1,000 ML IV SCH (10:11)
[2017-08-11] MEDS: LISINOPRIL 20 MG TAB PO SCH ×2 (10:22→22:34)
[2017-08-11] MEDS: ALPRAZolam 0.25 MG TAB PO SCH ×2 (10:25→22:34)
[2017-08-11] MEDS: amLODIPine 5 MG TAB PO SCH (12:59)
[2017-08-11] MEDS: MULTIVITAMINS, THERA 1 EACH TAB PO SCH (13:00)
[2017-08-11] MEDS: Acetaminophen-Codeine 300-30mg TAB PO PRN (14:46)
--- NOTE | 2017-08-11 14:59 | P.PN ---
Subjective Progress Note Date: 08/11/17 87-year-old female who presented to an outside emergency room after she sustained a fall at home in the left side. Patient was evaluated and was found to have left hip fracture. Jacobo Castellanos currently being evaluated for pelvic surgery this afternoon. I was asked to see her for medical clearance. Patient is to the face. Her daughter at bedside. Patient has underlying dementia and very poor historian. Apparently she lives at home with her family and she is usually able to get up and walk around. Patient herself denies any chest pain shortness of breath. Patient was in hospice before she presented to the emergency room. She was taken off of hospice to proceed with the orthopedic procedure. 08/10/2017 patient had left hip hemiarthroplasty completed on 08/08/2017. Patient is currently sitting in bedside chair. Pain is tolerable. Denies any chest pain or shortness breath. Denies any nausea or vomiting. Passing gas no bowel movement yet. Denies any burning with urination. Patient's blood pressures been on the lower side. Sessile pressure in the 90s. She will receive a small fluid bolus. Parameters have been place her on blood pressure pills Norvasc dose has been decreased from 10-5 mg daily. White count is 13.4. However she is on prednisone which is also a home medication. 08/11/2017 patient is alert and oriented Ovidio in bed pain is well controlled requesting a nicotine patch denies any chest pain or shortness of breath no nausea or vomiting no abdominal pain no urinary symptoms Objective - Vital Signs Vital signs: Vital Signs Temp 97.0 F L 08/11/17 07:59 Pulse 105 H 08/11/17 13:02 Resp 16 08/11/17 10:44 BP 137/46 08/11/17 13:02 Pulse Ox 95 08/11/17 07:59 Intake & Output 08/10/17 08/11/17 08/11/17 18:59 06:59 18:59 Intake Total 500 415 125 Balance 500 415 125 Weight 36.287 kg 36.287 kg Intake: Intake, IV Titration 225 Amount Sodium Chloride 0.9% 250 225 ml @ 999 mls/hr IV .Q16M ONE Rx#:[id number] Oral 500 190 125 Other: Voiding Method Diaper Diaper Diaper # Voids 2 - Exam HEENT head normocephalic and nontraumatic Neck is supple no JVD no goiter no lymphadenopathy Chest exam reveals a few scattered crackles no wheezing Cardiac exam reveals regular heart sounds no gallops no murmurs Abdomen is soft nontender no organomegaly Extremity exam reveals no edema no cyanosis or clubbing - Labs CBC & Chem 7: 08/10/17 07:06 Assessment and Plan Assessment: 1. Left hip fracture status post left hip hemiarthroplasty. Continue postoperative care. 2. Physical debility, awaiting PT/OT. Family are interested in rehab. 3. Essential hypertension on patient having some episodes of hypotension. Will give a small fluid bolus. Hold lisinopril this morning. Place parameters around both the lisinopril and Norvasc. Decrease Norvasc from 10-5 mg daily. 4. COPD with no evidence of exacerbation 5. hypothyroidism 6. Leukocytosis likely to patient's chronic prednisone. No evidence of infection at incision site. Also will order incentive spirometer. Anticipating discharge to ECF on Sunday DVT prophylaxis on Lovenox
[2017-08-11] MEDS: DEXTROSE 5%-0.9% NACL 1,000 ML IV SCH ×2 (16:50)
[2017-08-11] MEDS: NICOTINE 14MG/24HR PATCH TRANSDERM SCH (16:53)
[2017-08-11] MEDS: ATORVASTATIN 10 MG TAB PO SCH (22:34)
[2017-08-11] MEDS: MONTELUKAST 10 MG TAB PO SCH (22:34)
[2017-08-11] MEDS: DONEPEZIL 10 MG TAB PO SCH (22:34)
[2017-08-11] MEDS: SENNOSIDES-DOCUSATE SODIUM 1 EACH TAB PO SCH (22:35)
[2017-08-12] MEDS ORDERED: IPRATROPIUM-ALBUTEROL 3 ML NEB INHALATION PRN (02:51)
[2017-08-12] MEDS: SODIUM CHLORIDE 0.9% 1,000 ML IV SCH ×2 (06:29→12:50)
[2017-08-12] MEDS: LEVOTHYROXINE 88 MCG TAB PO SCH (06:29)
[2017-08-12] MEDS: DEXTROSE 5%-0.9% NACL 1,000 ML IV SCH (06:30)
[2017-08-12 07:21] LABS: Basophils % (A) 0 %; CH 30.1; Eosinophils # (A) 0.2 k/uL (0-0.7); Eosinophils % (A) 2 %; HCT 29.8 % (34.0-46.0); HDW 2.16; HGB 9.3 gm/dL (11.4-16.0); Luc # (Auto) 0.11; Luc % (Auto) 1; Lymphocytes # (A) 1.3 k/uL (1.0-4.8); Lymphocytes % (A) 13 %; MCH 29.7 pg (25.0-35.0); MCHC 31.4 g/dL (31.0-37.0); MCV 94.7 fL (80.0-100.0); Mean Platelet Volume 7.8; Monocytes # (A) 0.8 k/uL (0-1.0); Monocytes % (A) 8 %; Neutrophils # (A) 7.7 k/uL (1.3-7.7); Neutrophils % (A) 76 %; RBC 3.14 m/uL (3.80-5.40); RDW 13.5 % (11.5-15.5); WBC 10.1 k/uL (3.8-10.6); WBC (Perox) 9.98
--- NOTE | 2017-08-12 07:42 | P.PN ---
Subjective This is an 87-year-old female who is status post left hemiarthroplasty. This is postoperative day #3. Patient is lying in bed comfortably today. Patient has no new complaints today. Objective - Vital Signs Vital signs: Vital Signs Temp 98.4 F 08/12/17 07:24 Pulse 83 08/12/17 07:24 Resp 16 08/12/17 07:24 BP 148/68 08/12/17 07:24 Pulse Ox 98 08/12/17 07:24 Intake & Output 08/11/17 08/12/17 08/12/17 18:59 06:59 18:59 Intake Total 625 980 Balance 625 980 Weight 36.287 kg Intake: Intake, IV Titration 980 Amount Sodium Chloride 0.9% 1, 980 000 ml @ 20 mls/hr IV . Q24H MARY Rx#:[id number] Oral 625 Other: Voiding Method Diaper Incontinent # Voids 3 - Exam Patient is resting comfortably in bed in no acute distress. On exam abductor pillow is in place. Incision is clean, dry and intact. Calf is soft and non- tender. Patient is able to move the foot and ankle without difficulty. Neurovascular status intact. - Labs CBC & Chem 7: 08/12/17 06:19 Labs: Abnormal Lab Results - Last 24 Hours (Table) 08/12/17 Range/Units 06:19 RBC 3.14 L (3.80-5.40) m/uL Hgb 9.3 L (11.4-16.0) gm/dL Hct 29.8 L (34.0-46.0) % Assessment and Plan (1) Closed left hip fracture Current Visit: Yes Status: Acute Code(s): S72.002A - FRACTURE OF UNSP PART OF NECK OF LEFT FEMUR, INIT SNOMED Code(s): 779806711 (2) S/P hip hemiarthroplasty Current Visit: Yes Status: Acute Code(s): Z96.649 - PRESENCE OF UNSPECIFIED ARTIFICIAL HIP JOINT SNOMED Code(s): 693950841 (3) Hip fracture, left Current Visit: Yes Status: Acute Code(s): S72.002A - FRACTURE OF UNSP PART OF NECK OF LEFT FEMUR, INIT SNOMED Code(s): 463935077 Plan: Continue routine postop care. Continue antocoagulation. Weightbearing as tolerated with a walker Daily dressing changes, keep incision clean and dry Continue hip precautions with abductor pillow Possible discharge to rehab Sunday.
[2017-08-12] MEDS ORDERED: ACETAMINOPHEN TAB 500 MG TAB PO PRN (07:43)
[2017-08-12 08:24] LABS: ALT 16 U/L (9-52); AST 30 U/L (14-36); Alkaline Phosphatase 87 U/L (38-126); Anion Gap 5 mmol/L; Blood Urea Nitrogen 24 mg/dL (7-17); Calcium 8.3 mg/dL (8.4-10.2); Carbon Dioxide 27 mmol/L (22-30); Chloride 97 mmol/L (98-107); Glucose 78 mg/dL (74-99); Non-African American GFR(MDRD) >60 (>60 ml/min/1.73 sqM); Potassium 4.6 mmol/L (3.5-5.1); Sodium 129 mmol/L (137-145); Total Bilirubin 0.3 mg/dL (0.2-1.3); Total Protein 4.4 g/dL (6.3-8.2)
[2017-08-12] MEDS: BUDESONIDE 0.5 MG/2 ML NEBU INHALATION SCH ×2 (08:34→19:51)
[2017-08-12] MEDS: IPRATROPIUM-ALBUTEROL 3 ML NEB INHALATION SCH ×4 (08:34→19:51)
[2017-08-12] MEDS: PANTOPRAZOLE 40 MG TABLET PO SCH (08:55)
[2017-08-12] MEDS: FERROUS SULFATE 325 MG TAB PO SCH ×2 (08:55→22:00)
[2017-08-12] MEDS: LISINOPRIL 20 MG TAB PO SCH ×2 (08:56→22:00)
[2017-08-12] MEDS: FLUTICASONE 50MCG/SPRAY NASAL 16GM EA NOSTRIL SCH (08:56)
[2017-08-12] MEDS: SERTRALINE 50 MG TAB PO SCH (08:56)
[2017-08-12] MEDS: CALCIUM CARB-VIT D 500MG-200UN 1 EACH TAB PO SCH (08:56)
[2017-08-12] MEDS: predniSONE 10 MG TAB PO SCH (08:56)
[2017-08-12] MEDS: ASPIRIN 81 MG PO SCH (08:56)
[2017-08-12] MEDS: NICOTINE 14MG/24HR PATCH TRANSDERM SCH (08:57)
[2017-08-12] MEDS: ENOXAPARIN 30 MG/0.3 ML SYRINGE SQ SCH (08:57)
[2017-08-12] MEDS: ALPRAZolam 0.25 MG TAB PO SCH ×2 (09:00→21:59)
--- NOTE | 2017-08-12 13:36 | P.PN ---
Subjective Progress Note Date: 08/12/17 87-year-old female who presented to an outside emergency room after she sustained a fall at home in the left side. Patient was evaluated and was found to have left hip fracture. Jacobo Castellanos currently being evaluated for pelvic surgery this afternoon. I was asked to see her for medical clearance. Patient is to the face. Her daughter at bedside. Patient has underlying dementia and very poor historian. Apparently she lives at home with her family and she is usually able to get up and walk around. Patient herself denies any chest pain shortness of breath. Patient was in hospice before she presented to the emergency room. She was taken off of hospice to proceed with the orthopedic procedure. 08/10/2017 patient had left hip hemiarthroplasty completed on 08/08/2017. Patient is currently sitting in bedside chair. Pain is tolerable. Denies any chest pain or shortness breath. Denies any nausea or vomiting. Passing gas no bowel movement yet. Denies any burning with urination. Patient's blood pressures been on the lower side. Sessile pressure in the 90s. She will receive a small fluid bolus. Parameters have been place her on blood pressure pills Norvasc dose has been decreased from 10-5 mg daily. White count is 13.4. However she is on prednisone which is also a home medication. 08/11/2017 patient is alert and oriented Ovidio in bed pain is well controlled requesting a nicotine patch denies any chest pain or shortness of breath no nausea or vomiting no abdominal pain no urinary symptoms On 08/12/2017 patient is alert and oriented she is sitting up in a chair pain is better controlled she is complaining of cough otherwise no complaints there is no chest pain or shortness of breath no nausea or vomiting no abdominal pain and no urinary symptoms Objective - Vital Signs Vital signs: Vital Signs Temp 98.4 F 08/12/17 07:24 Pulse 82 08/12/17 12:32 Resp 16 08/12/17 07:24 BP 148/68 08/12/17 07:24 Pulse Ox 94 L 08/12/17 08:37 Intake & Output 08/11/17 08/12/17 08/12/17 18:59 06:59 18:59 Intake Total 625 980 365 Balance 625 980 365 Weight 36.287 kg Intake: Intake, IV Titration 980 Amount Sodium Chloride 0.9% 1, 980 000 ml @ 20 mls/hr IV . Q24H [facility] Rx#:[id number] Oral 625 365 Other: Voiding Method Diaper Incontinent Incontinent # Voids 3 1 - Exam HEENT head normocephalic and nontraumatic Neck is supple no JVD no goiter no lymphadenopathy Chest exam reveals a few scattered crackles no wheezing Cardiac exam reveals regular heart sounds no gallops no murmurs Abdomen is soft nontender no organomegaly Extremity exam reveals no edema no cyanosis or clubbing - Labs CBC & Chem 7: 08/12/17 06:19 08/12/17 06:19 Labs: Abnormal Lab Results - Last 24 Hours (Table) 08/12/17 08/12/17 Range/Units 06:19 06:19 RBC 3.14 L (3.80-5.40) m/uL Hgb 9.3 L (11.4-16.0) gm/dL Hct 29.8 L (34.0-46.0) % Sodium 129 L (137-145) mmol/L Chloride 97 L (98-107) mmol/L BUN 24 H (7-17) mg/dL Calcium 8.3 L (8.4-10.2) mg/dL Total Protein 4.4 L (6.3-8.2) g/dL Albumin 2.0 L (3.5-5.0) g/dL Assessment and Plan Assessment: 1. Left hip fracture status post left hip hemiarthroplasty. Continue postoperative care. 2. Physical debility, awaiting PT/OT. Family are interested in rehab. 3. Essential hypertension on patient having some episodes of hypotension. Will give a small fluid bolus. Hold lisinopril this morning. Place parameters around both the lisinopril and Norvasc. Decrease Norvasc from 10-5 mg daily. 4. COPD with no evidence of exacerbation 5. hypothyroidism 6. Leukocytosis likely to patient's chronic prednisone. No evidence of infection at incision site. Also will order incentive spirometer. Anticipating discharge to ECF on Sunday DVT prophylaxis on Lovenox
--- NOTE | 2017-08-12 13:59 | XR ---
EXAMINATION TYPE: XR chest 1V portable DATE OF EXAM: 08/12/2017 HISTORY: cough. REFERENCE: NONE. FINDINGS: There is a right shoulder arthroplasty in place. Lung volumes are prominent. There are bilateral pleural effusions. There is left basilar airspace dis ease I suspect a hiatal hernia behind the heart. The heart itself is not enlarged. IMPRESSION: 1. COPD. 2. BILATERAL EFFUSIONS. 3. LEFT BASILAR AIRSPACE DISEASE. 4. I SUSPECT A HIATAL HERNIA.
[2017-08-12] MEDS: amLODIPine 5 MG TAB PO SCH (14:28)
[2017-08-12] MEDS: MULTIVITAMINS, THERA 1 EACH TAB PO SCH (14:29)
[2017-08-12] MEDS: ATORVASTATIN 10 MG TAB PO SCH (21:59)
[2017-08-12] MEDS: MONTELUKAST 10 MG TAB PO SCH (22:00)
[2017-08-12] MEDS: DONEPEZIL 10 MG TAB PO SCH (22:00)
[2017-08-12] MEDS: SENNOSIDES-DOCUSATE SODIUM 1 EACH TAB PO SCH (22:00)
[2017-08-13] MEDS: LEVOTHYROXINE 88 MCG TAB PO SCH (06:31)
[2017-08-13] MEDS: BUDESONIDE 0.5 MG/2 ML NEBU INHALATION SCH (07:31)
[2017-08-13] MEDS: IPRATROPIUM-ALBUTEROL 3 ML NEB INHALATION SCH ×3 (07:31→15:23)
--- NOTE | 2017-08-13 08:11 | P.DS ---
Providers Date of admission: 08/08/17 02:38 Expected date of discharge: 08/13/17 Attending physician: Flaquita Cuevas Consults: 08/08/17 09:01 Consult Physician Stat Consulting Provider: Sabra Chaudhari Consult Reason/Comments: Surgical clearance and Medical managment Do you want consulting provider notified?: Yes Primary care physician: Tegan Lynched - Discharge Diagnosis(es) (1) Closed left hip fracture Current Visit: Yes Status: Acute (2) S/P hip hemiarthroplasty Current Visit: Yes Status: Acute (3) Hip fracture, left Current Visit: Yes Status: Acute Hospital Course: This is a 87-year-old female who sustained an injury to the left hip after fall. The patient was taken to the emergency room via EMS for further evaluation. Orthopedics was consulted due to x-ray evidence of subcapital fracture of the left femur. After discussion and consideration patient and patient's daughter elect to proceed with left hemiarthroplasty. The patient is seen preoperatively by Dr. Salinas and cleared for surgery. Patient is admitted to [facility] on 08/08/2017. The procedures performed on 08/08/2017 without complication or sequelae. The patient is doing well postoperatively. Labs and vital signs are stable on day of discharge. On day of discharge patient's hip incision is healing well. There is minimal erythema. There is minimal drainage noted at this time. There is minimal soft tissue swelling to the hip and thigh. Patient has full foot and ankle motion without difficulty or pain. Neurovascular status to the left lower extremity is intact. Patient is discharged to rehab in good condition. Please see med rec for accurate list of home medications. Patient Condition at Discharge: Good Plan - Discharge Summary New Discharge Prescriptions: New Sennosides-Docusate Sodium [Senokot-S] 1 tab PO BID #60 tablet Aspirin 325 mg PO BID #60 tab Acetaminophen [Tylenol] 500 mg PO Q4-6H PRN #90 tab PRN Reason: Pain No Action Sertraline HCl [Sertraline HCl] 50 mg PO DAILY Omalizumab [Xolair] 150 mg SQ Q30D Budesonide [Pulmicort] 0.5 mg INHALATION RT-BID Ipratropium-Albuterol Nebulize [Duoneb 0.5 mg-3 mg/3 ml Soln] 3 ml INHALATION RT-QID Fluticasone Propionate 1 spray EA NOSTRIL DAILY Albuterol Inhaler [Ventolin Hfa Inhaler] 2 puff INHALATION RT-TID Aspirin EC [Ecotrin] 81 mg PO DAILY predniSONE [predniSONE] 10 mg PO DAILY Simvastatin [Zocor] 20 mg PO HS Montelukast Sodium [Singulair] 10 mg PO HS Levothyroxine Sodium [Synthroid] 88 mcg PO DAILY@0600 amLODIPine [Norvasc] 10 mg PO DAILY@1200 Enalapril [Vasotec] 20 mg PO BID Donepezil [Aricept] 10 mg PO HS Multivitamins, Thera [Multivitamin (formulary)] 1 tab PO DAILY Calcium Carb-Vit D 500Mg-200Un [Oscal 500+D] 2 tab PO DAILY Discharge Medication List Albuterol Inhaler [Ventolin Hfa Inhaler] 2 puff INHALATION RT-TID 05/25/16 [ History] Aspirin EC [Ecotrin] 81 mg PO DAILY 05/25/16 [History] Budesonide [Pulmicort] 0.5 mg INHALATION RT-BID 05/25/16 [History] Enalapril [Vasotec] 20 mg PO BID 05/25/16 [History] Fluticasone Propionate 1 spray EA NOSTRIL DAILY 05/25/16 [History] Ipratropium-Albuterol Nebulize [Duoneb 0.5 mg-3 mg/3 ml Soln] 3 ml INHALATION RT -QID 05/25/16 [History] Levothyroxine Sodium [Synthroid] 88 mcg PO DAILY@0600 05/25/16 [History] Montelukast Sodium [Singulair] 10 mg PO HS 05/25/16 [History] Omalizumab [Xolair] 150 mg SQ Q30D 05/25/16 [History] Sertraline HCl [Sertraline HCl] 50 mg PO DAILY 05/25/16 [History] Simvastatin [Zocor] 20 mg PO HS 05/25/16 [History] amLODIPine [Norvasc] 10 mg PO DAILY@1200 05/25/16 [History] predniSONE [predniSONE] 10 mg PO DAILY 05/25/16 [History] Calcium Carb-Vit D 500Mg-200Un [Oscal 500+D] 2 tab PO DAILY 08/08/17 [History] Donepezil [Aricept] 10 mg PO HS 08/08/17 [History] Multivitamins, Thera [Multivitamin (formulary)] 1 tab PO DAILY 08/08/17 [History ] Sennosides-Docusate Sodium [Senokot-S] 1 tab PO BID #60 tablet 08/10/17 [Rx] Aspirin 325 mg PO BID #60 tab 08/11/17 [Rx] Acetaminophen [Tylenol] 500 mg PO Q4-6H PRN #90 tab 08/13/17 [Rx] Follow up Appointment(s)/Referral(s): Flaquita Cuevas DO [Doctor of Osteopathic Medicine] - 2 Weeks Tegan Jeffries MD [Primary Care Provider] - 1-2 days [facility] Visiting Nurse, [NON-STAFF] - Activity/Diet/Wound Care/Special Instructions: May weight-bear as tolerated on left lower extremity. Hip dislocation precautions left lower extremity May increase mobilization and ambulation with physical therapy Avoid excessive bending and twisting and continue hip dislocation percussions on the left Keep incision site clean. May shower on Sunday with area uncovered. Do not soak in a tub Discharge Disposition: TRANSFER TO SNF/ECF
[2017-08-13] MEDS: FERROUS SULFATE 325 MG TAB PO SCH (08:54)
[2017-08-13] MEDS: ALPRAZolam 0.25 MG TAB PO SCH (08:54)
[2017-08-13] MEDS: PANTOPRAZOLE 40 MG TABLET PO SCH (08:54)
[2017-08-13] MEDS: SERTRALINE 50 MG TAB PO SCH (08:54)
[2017-08-13] MEDS: LISINOPRIL 20 MG TAB PO SCH (08:54)
[2017-08-13] MEDS: CALCIUM CARB-VIT D 500MG-200UN 1 EACH TAB PO SCH (08:54)
[2017-08-13] MEDS: ASPIRIN 81 MG PO SCH (08:55)
[2017-08-13] MEDS: FLUTICASONE 50MCG/SPRAY NASAL 16GM EA NOSTRIL SCH (08:55)
[2017-08-13] MEDS: NICOTINE 14MG/24HR PATCH TRANSDERM SCH (08:55)
[2017-08-13] MEDS: ENOXAPARIN 30 MG/0.3 ML SYRINGE SQ SCH (08:56)
[2017-08-13] MEDS: predniSONE 10 MG TAB PO SCH (09:06)
--- NOTE | 2017-08-13 11:30 | P.PN ---
Subjective Patient is resting in bed. Her daughter noticed that she is breathing fast this morning. Patient reports some shortness of breath. She is known to have chronic emphysema. Her daughter feels that going back home with hospice is more appropriate for her mother. Objective - Vital Signs Vital signs: Vital Signs Temp 97.6 F 08/13/17 01:12 Pulse 86 08/13/17 07:46 Resp 14 08/13/17 08:00 BP 135/67 08/13/17 01:12 Pulse Ox 97 08/13/17 01:12 Intake & Output 08/12/17 08/13/17 08/13/17 18:59 06:59 18:59 Intake Total 805 160 Balance 805 160 Intake: Intake, IV Titration 240 160 Amount Sodium Chloride 0.9% 1, 140 160 000 ml @ 20 mls/hr IV . Q24H [facility] Rx#:[id number] cefTRIAXone 1,000 mg In 100 Sodium Chloride 0.9% 50 ml @ 100 mls/hr IVPB Q24HR [facility] Rx#:[id number] Oral 565 Other: Voiding Method Incontinent Diaper Incontinent # Voids 1 3 - Exam General: The patient is awake and alert, in no distress Eye: there is normal conjunctiva bilaterally. Neck: The neck is supple, there is no JVD. Cardiovascular: Normal S1-S2, no S3-S4, no murmurs. Respiratory: Lungs clear to auscultation bilaterally Gastrointestinal: Abdomen is soft, nontender Musculoskeletal: There is no pedal edema. Neurological:. Speech is normal. Skin: Skin is warm and dry - Labs CBC & Chem 7: 08/12/17 06:19 08/12/17 06:19 Assessment and Plan Plan: 1. Left hip fracture status post left hip hemiarthroplasty. 2. Physical and medical debility 3. Essential hypertension, blood pressure well-controlled 4. COPD with no evidence of exacerbation 5. hypothyroidism Patient daughter is interested in taking her mother back home with hospice.
[2017-08-13] MEDS: MULTIVITAMINS, THERA 1 EACH TAB PO SCH (12:16)
[2017-08-13] MEDS: amLODIPine 5 MG TAB PO SCH (12:16)
[2017-08-13] MEDS: SODIUM CHLORIDE 0.9% 1,000 ML IV SCH (12:27)
[2017-08-13 15:08] VITALS: BP 146/81; PULSE 92; RESP 16; TEMP 97.9
== END 2017-08-13 16:49 | DRG 470 ==
LOC: EC 01:28 → 3SUR 02:38
PROVIDERS: ADMIT Orthopaedic Surgery Orthopaedic Surgery of the Spine; ATTEND Orthopaedic Surgery Orthopaedic Surgery of the Spine
PROC: 0SRB01A Replacement of Left Hip Joint with Metal Synthetic Substitute, Uncemented, Open Approach (ICD-10-PCS; principal; 2017-08-08 12:15)
DX: S72.002A Fracture of unspecified part of neck of left femur, initial encounter for closed fracture (principal); I95.9 Hypotension, unspecified; F03.90 Unspecified dementia, unspecified severity, without behavioral disturbance, psychotic disturbance, mood disturbance, and anxiety; J43.9 Emphysema, unspecified; K21.9 Gastro-esophageal reflux disease without esophagitis; F17.200 Nicotine dependence, unspecified, uncomplicated; Z96.619 Presence of unspecified artificial shoulder joint; E78.5 Hyperlipidemia, unspecified; I10 Essential (primary) hypertension; F32.9 Major depressive disorder, single episode, unspecified; R62.7 Adult failure to thrive; E03.9 Hypothyroidism, unspecified; R53.81 Other malaise; Z79.51 Long term (current) use of inhaled steroids; Z79.899 Other long term (current) drug therapy; Z88.6 Allergy status to analgesic agent; Z79.52 Long term (current) use of systemic steroids; Z79.82 Long term (current) use of aspirin; Y92.009 Unspecified place in unspecified non-institutional (private) residence as the place of occurrence of the external cause; W06.XXXA Fall from bed, initial encounter
CPT/HCPCS: 71010; 73501; 80053; 85025; 86850; 86900; 86901; 88305; 88311; 93005; 94640; 94760; 99285

== ENCOUNTER 2017-08-17 18:09 | Inpatient (IN) | payer MEDICARE ==
[2017-08-17] MEDS ORDERED: SODIUM CHLORIDE 0.9% 500 ML IV ONE (18:37)
[2017-08-17] MEDS: SODIUM CHLORIDE 0.9% 1,000 ML IV SCH ×2 (19:02→19:03)
--- NOTE | 2017-08-17 19:02 | ED ---
General Adult HPI - General Chief complaint: Recheck/Abnormal Lab/Rx Stated complaint: Abn Labs Time Seen by Provider: 08/17/17 18:11 Source: patient, EMS Mode of arrival: EMS Limitations: altered mental status - History of Present Illness Initial comments: This is an 87-year-old female with a recent history of left hip replacement who presents emergency department for generalized weakness and low sodium. The patient had the surgery performed couple of weeks ago. She is been at a rehab facility since then. She has not been eating as much as she should. They've been trying to get her to drink ensure however she has not had an appetite. This seems to be baseline for the patient. They checked her sodium today and it was noted that was low so she was directed emergency department. She denies any focal weakness. No headaches. No numbness or tingling in her extremities. No abdominal pain. No nausea or vomiting or diarrhea. No cough or shortness of breath. No dysuria or hematuria. She denies any other complaint. - Related Data Home Medications Medication Instructions Recorded Confirmed Budesonide [Pulmicort] 0.5 mg INHALATION RT-BID 05/25/16 08/17/17 Enalapril [Vasotec] 20 mg PO BID 05/25/16 08/17/17 Levothyroxine Sodium [Synthroid] 88 mcg PO DAILY 05/25/16 08/17/17 Montelukast Sodium [Singulair] 10 mg PO HS 05/25/16 08/17/17 Sertraline HCl 50 mg PO DAILY 05/25/16 08/17/17 Simvastatin [Zocor] 20 mg PO HS 05/25/16 08/17/17 amLODIPine [Norvasc] 10 mg PO DAILY@1200 05/25/16 08/17/17 predniSONE 10 mg PO DAILY 05/25/16 08/17/17 Calcium Carb-Vit D 500Mg-200Un 2 tab PO DAILY@1800 08/08/17 08/17/17 [Oscal 500+D] Donepezil [Aricept] 10 mg PO HS 08/08/17 08/17/17 Aspirin 325 mg PO BID@0800,2000 08/17/17 08/17/17 Previous Rx's Medication Instructions Recorded Sennosides-Docusate Sodium 1 tab PO BID #60 tablet 10/20/17 [Senokot-S] Acetaminophen [Tylenol] 500 mg PO Q4-6H PRN #90 tab 08/13/17 Ipratropium-Albuterol Nebulize 3 ml INHALATION RT-QID PRN #0 08/13/17 [Duoneb 0.5 mg-3 mg/3 ml Soln] Allergies Allergy/AdvReac Type Severity Reaction Status Date / Time hydrocodone bitartrate AdvReac Nausea Verified 08/17/17 18:29 [From Vicodin] propoxyphene napsylate AdvReac Nausea Verified 08/17/17 18:29 [From Darvocet-N 100] Review of Systems ROS Statement: Those systems with pertinent positive or pertinent negative responses have been documented in the HPI. ROS Other: All systems not noted in ROS Statement are negative. Past Medical History Past Medical History: Asthma, COPD, Dementia, GERD/Reflux, Hyperlipidemia, Hypertension, Thyroid Disorder Additional Past Medical History / Comment(s): Severe reaction to general anesthesia in 2012, patient was severely weak, and "sick" according to daughter. Patient spent 2 weeks in rehab facility History of Any Multi-Drug Resistant Organisms: None Reported Past Surgical History: Orthopedic Surgery Additional Past Surgical History / Comment(s): Shoulder replacement. Past Anesthesia/Blood Transfusion Reactions: Previous Problems w/ Anesthesia Past Psychological History: Depression Smoking Status: Former smoker Past Alcohol Use History: None Reported Past Drug Use History: None Reported - Past Family History Father Family Medical History: Cancer Additional Family Medical History / Comment(s): colon cancer General Exam - General Exam Comments Initial Comments: Constitutional: Awake alert Appears comfortable Head: Normocephalic atraumatic Eyes: no conjunctival injection No scleral icterus EOMI, pupils are 4 mm reactive bilaterally Neck: No JVD Supple Heart: Regular rate rhythm normal S1-S2 no murmurs Lungs: Clear to auscultation bilaterally No wheezing No rales Abdomen: Soft nondistended nontender Extremities: Non edematous DP pulses intact Radial pulses intact Neuro: A&Ox3, there is 5 out of 5 strength in bilateral upper and lower extremities, sensation intact in all extremities, patient is generalized fatigue however No focal neurologic deficits Psych: Appropriate mood and affect Limitations: altered mental status Course Vital Signs 08/17/17 08/17/17 08/17/17 18:15 19:46 20:22 Temperature 97.5 F L Pulse Rate 72 74 70 Respiratory 18 16 16 Rate Blood Pressure 119/44 118/47 125/50 O2 Sat by Pulse 93 L 94 L 94 L Oximetry 08/17/17 21:28 Temperature 98 F Pulse Rate 74 Respiratory 16 Rate Blood Pressure 133/65 O2 Sat by Pulse 94 L Oximetry EKG Findings - EKG Comments: EKG Findings:: EKG showing normal sinus rhythm with a rate of 64. No abnormal ST segment changes or T-wave inversions. QTC is 47. Other intervals normal. No ectopy. Medical Decision Making - Medical Decision Making This is a 7-year-old female given for weakness and hyponatremia. Sodium was found be 121. Her serum osmolality was low and her urine osmolality was high. We'll stop fluids. Dr. Sam requests sodium tabs twice a day and fluid restriction. The patient will placed in the hospital and have recheck of sodium in the morning. Patient and family were updated and agree. All questions were answered. - Lab Data Result diagrams: 08/17/17 19:41 08/17/17 19:41 Lab Results 08/17/17 08/17/17 08/17/17 Range/Units 19:41 19:41 19:45 WBC 13.5 H (3.8-10.6) k/uL RBC 3.65 L (3.80-5.40) m/uL Hgb 10.5 L (11.4-16.0) gm/dL Hct 34.7 (34.0-46.0) % MCV 95.0 (80.0-100.0) fL MCH 28.8 (25.0-35.0) pg MCHC 30.4 L (31.0-37.0) g/dL RDW 13.6 (11.5-15.5) % Plt Count 860 H* (150-450) k/uL Neutrophils % 82 % Lymphocytes % 11 % Monocytes % 5 % Eosinophils % 1 % Basophils % 0 % Neutrophils # 11.0 H (1.3-7.7) k/uL Lymphocytes # 1.5 (1.0-4.8) k/uL Monocytes # 0.7 (0-1.0) k/uL Eosinophils # 0.1 (0-0.7) k/uL Basophils # 0.0 (0-0.2) k/uL Sodium 121 L (137-145) mmol/L Potassium 4.9 (3.5-5.1) mmol/L Chloride 91 L (98-107) mmol/L Carbon Dioxide 26 (22-30) mmol/L Anion Gap 4 mmol/L BUN 16 (7-17) mg/dL Creatinine 0.54 (0.52-1.04) mg/dL Est GFR (MDRD) Af Amer >60 (>60 ml/min/1.73 sqM) Est GFR (MDRD) Non-Af >60 (>60 ml/min/1.73 sqM) Glucose 89 (74-99) mg/dL Osmolality 256 L (280-301) mosm/kg Calcium 8.4 (8.4-10.2) mg/dL Total Bilirubin 0.3 (0.2-1.3) mg/dL AST 39 H (14-36) U/L ALT 50 (9-52) U/L Alkaline Phosphatase 91 (38-126) U/L Total Protein 4.9 L (6.3-8.2) g/dL Albumin 2.4 L (3.5-5.0) g/dL Urine Color Urine Appearance (Clear) Urine pH (5.0-8.0) Ur Specific [place] (1.001-1.035) Urine Protein (Negative) Urine Glucose (UA) (Negative) Urine Ketones (Negative) Urine Blood (Negative) Urine Nitrite (Negative) Urine Bilirubin (Negative) Urine Urobilinogen (<2.0) mg/dL Ur Leukocyte Esterase (Negative) Urine Osmolality 430 (50-1400) mosm/kg Ur Random Creatinine 27.6 mg/dL Ur Random Sodium (30-90) mmol/L 08/17/17 08/17/17 Range/Units 19:45 19:45 WBC (3.8-10.6) k/uL RBC (3.80-5.40) m/uL Hgb (11.4-16.0) gm/dL Hct (34.0-46.0) % MCV (80.0-100.0) fL MCH (25.0-35.0) pg MCHC (31.0-37.0) g/dL RDW (11.5-15.5) % Plt Count (150-450) k/uL Neutrophils % % Lymphocytes % % Monocytes % % Eosinophils % % Basophils % % Neutrophils # (1.3-7.7) k/uL Lymphocytes # (1.0-4.8) k/uL Monocytes # (0-1.0) k/uL Eosinophils # (0-0.7) k/uL Basophils # (0-0.2) k/uL Sodium (137-145) mmol/L Potassium (3.5-5.1) mmol/L Chloride (98-107) mmol/L Carbon Dioxide (22-30) mmol/L Anion Gap mmol/L BUN (7-17) mg/dL Creatinine (0.52-1.04) mg/dL Est GFR (MDRD) Af Amer (>60 ml/min/1.73 sqM) Est GFR (MDRD) Non-Af (>60 ml/min/1.73 sqM) Glucose (74-99) mg/dL Osmolality (280-301) mosm/kg Calcium (8.4-10.2) mg/dL Total Bilirubin (0.2-1.3) mg/dL AST (14-36) U/L ALT (9-52) U/L Alkaline Phosphatase (38-126) U/L Total Protein (6.3-8.2) g/dL Albumin (3.5-5.0) g/dL Urine Color Yellow Urine Appearance Clear (Clear) Urine pH 7.0 (5.0-8.0) Ur Specific [place] 1.009 (1.001-1.035) Urine Protein Negative (Negative) Urine Glucose (UA) Negative (Negative) Urine Ketones Negative (Negative) Urine Blood Negative (Negative) Urine Nitrite Negative (Negative) Urine Bilirubin Negative (Negative) Urine Urobilinogen <2.0 (<2.0) mg/dL Ur Leukocyte Esterase Negative (Negative) Urine Osmolality (50-1400) mosm/kg Ur Random Creatinine mg/dL Ur Random Sodium 117 H (30-90) mmol/L Disposition Clinical Impression: Hyponatremia, Thrombocytosis, FTT (failure to thrive) in adult Disposition: ADMITTED IP TO THIS HOSP Condition: Stable
--- NOTE | 2017-08-17 19:32 | XR ---
EXAMINATION TYPE: XR chest 2V DATE OF EXAM: 08/17/2017 COMPARISON: 08/12/2017 HISTORY: Chest pain TECHNIQUE: Frontal and lateral views of the chest are obtained. FINDINGS: There is blunting of left costophrenic angle consistent with a moderate-sized pleural effu susie. There is also mild right pleural effusion. There is no gross heart failure. Thoracic aorta is a theromatous. Heart size is normal. There are chest leads. IMPRESSION: Bilateral pleural effusions and larger on the left side. Chest is worse than last exam.
[2017-08-17 19:59] LABS: Appearance,Urine Clear (Clear); Bilirubin,Urine Negative (Negative); Glucose,Urine (UA) Negative (Negative); Ketones,Urine Negative (Negative); Leukocyte Esterase,Urine Negative (Negative); Nitrite,Urine Negative (Negative); Protein,Urine Negative (Negative); Specific Gravity,Urine 1.009 (1.001-1.035); UA Billing (MACRO vs. MICRO) CHEM; Urobilinogen,Urine <2.0 mg/dL (<2.0)
[2017-08-17 20:12] LABS: Basophils % (A) 0 %; CH 30.2; Eosinophils # (A) 0.1 k/uL (0-0.7); Eosinophils % (A) 1 %; HCT 34.7 % (34.0-46.0); HGB 10.5 gm/dL (11.4-16.0); Luc # (Auto) 0.12; Luc % (Auto) 1; Lymphocytes # (A) 1.5 k/uL (1.0-4.8); Lymphocytes % (A) 11 %; MCH 28.8 pg (25.0-35.0); MCHC 30.4 g/dL (31.0-37.0); Mean Platelet Volume 6.6; Monocytes # (A) 0.7 k/uL (0-1.0); Monocytes % (A) 5 %; Neutrophils % (A) 82 %; RBC 3.65 m/uL (3.80-5.40); RDW 13.6 % (11.5-15.5); WBC 13.5 k/uL (3.8-10.6); WBC (Perox) 13.75
[2017-08-17] MEDS ORDERED: ACETAMINOPHEN TAB 325 MG TAB PO STA (20:24)
[2017-08-17 20:28] LABS: ALT 50 U/L (9-52); AST 39 U/L (14-36); Alkaline Phosphatase 91 U/L (38-126); Anion Gap 4 mmol/L; Blood Urea Nitrogen 16 mg/dL (7-17); Calcium 8.4 mg/dL (8.4-10.2); Carbon Dioxide 26 mmol/L (22-30); Chloride 91 mmol/L (98-107); Glucose 89 mg/dL (74-99); Non-African American GFR(MDRD) >60 (>60 ml/min/1.73 sqM); Potassium 4.9 mmol/L (3.5-5.1); Sodium 121 mmol/L (137-145); Total Bilirubin 0.3 mg/dL (0.2-1.3); Total Protein 4.9 g/dL (6.3-8.2)
[2017-08-17] MEDS ORDERED: NALOXONE 0.4 MG/ML 1 ML VIAL IV PRN (20:49)
[2017-08-17 22:16] VITALS: BMI 19.1
[2017-08-17] MEDS: ATORVASTATIN 10 MG TAB PO SCH (22:37)
[2017-08-17] MEDS: MONTELUKAST 10 MG TAB PO SCH (22:37)
[2017-08-17] MEDS: SODIUM CHLORIDE TAB 1 GM TAB PO SCH (22:37)
[2017-08-17] MEDS: DONEPEZIL 10 MG TAB PO SCH (22:37)
[2017-08-17] MEDS: SENNOSIDES-DOCUSATE SODIUM 1 EACH TAB PO SCH (22:38)
[2017-08-18] MEDS: LEVOTHYROXINE 88 MCG TAB PO SCH (06:02)
[2017-08-18] MEDS: BUDESONIDE 0.5 MG/2 ML NEBU INHALATION SCH ×2 (07:37→20:21)
[2017-08-18] MEDS: IPRATROPIUM-ALBUTEROL 3 ML NEB INHALATION PRN ×2 (07:37→11:12)
[2017-08-18 07:54] LABS: Basophils % (A) 0 %; CH 30.3; CHCM 32.6; Eosinophils # (A) 0.2 k/uL (0-0.7); Eosinophils % (A) 1 %; HCT 30.3 % (34.0-46.0); HDW 2.27; HGB 9.5 gm/dL (11.4-16.0); Luc # (Auto) 0.13; Luc % (Auto) 1; Lymphocytes % (A) 16 %; MCH 29.2 pg (25.0-35.0); MCHC 31.3 g/dL (31.0-37.0); MCV 93.2 fL (80.0-100.0); Mean Platelet Volume 6.4; Monocytes # (A) 0.8 k/uL (0-1.0); Monocytes % (A) 7 %; Neutrophils # (A) 9.2 k/uL (1.3-7.7); Neutrophils % (A) 75 %; RBC 3.25 m/uL (3.80-5.40); RDW 13.9 % (11.5-15.5); WBC 12.3 k/uL (3.8-10.6); WBC (Perox) 12.22
[2017-08-18 08:02] LABS: ALT 43 U/L (9-52); AST 33 U/L (14-36); Alkaline Phosphatase 84 U/L (38-126); Anion Gap 4 mmol/L; Blood Urea Nitrogen 12 mg/dL (7-17); Calcium 8.1 mg/dL (8.4-10.2); Carbon Dioxide 25 mmol/L (22-30); Chloride 93 mmol/L (98-107); Glucose 71 mg/dL (74-99); Non-African American GFR(MDRD) >60 (>60 ml/min/1.73 sqM); Potassium 4.2 mmol/L (3.5-5.1); Sodium 122 mmol/L (137-145); Total Bilirubin 0.3 mg/dL (0.2-1.3); Total Protein 4.4 g/dL (6.3-8.2)
[2017-08-18] MEDS: SENNOSIDES-DOCUSATE SODIUM 1 EACH TAB PO SCH ×2 (08:22→21:23)
[2017-08-18] MEDS: ASPIRIN 325 MG TAB PO SCH ×2 (08:22→21:23)
[2017-08-18] MEDS: SODIUM CHLORIDE TAB 1 GM TAB PO SCH ×2 (08:22→21:23)
[2017-08-18] MEDS: SERTRALINE 50 MG TAB PO SCH (08:22)
[2017-08-18] MEDS ORDERED: predniSONE 10 MG TAB PO SCH (09:00)
[2017-08-18] MEDS: SODIUM CHLORIDE 0.9% 1,000 ML IV SCH ×2 (12:54→23:42)
[2017-08-18] MEDS: amLODIPine 10 MG TAB PO SCH (12:54)
[2017-08-18] MEDS: ACETAMINOPHEN TAB 325 MG TAB PO PRN ×2 (14:52→21:22)
[2017-08-18] MEDS: methylPREDNISolone SOD SUCCI 40 MG/ML 1 ML VIAL IV SCH ×2 (15:53→23:42)
[2017-08-18] MEDS: IPRATROPIUM-ALBUTEROL 3 ML NEB INHALATION SCH ×2 (16:10→20:22)
[2017-08-18] MEDS: CALCIUM CARB-VIT D 500MG-200UN 1 EACH TAB PO SCH (17:33)
[2017-08-18] MEDS: ATORVASTATIN 10 MG TAB PO SCH (21:23)
[2017-08-18] MEDS: MONTELUKAST 10 MG TAB PO SCH (21:23)
[2017-08-18] MEDS: DONEPEZIL 10 MG TAB PO SCH (21:23)
[2017-08-19 02:41] LABS: Basophils % (A) 0 %; CH 29.6; CHCM 32.3; Eosinophils % (A) 0 %; HCT 28.3 % (34.0-46.0); HDW 2.21; HGB 8.8 gm/dL (11.4-16.0); Luc # (Auto) 0.03; Luc % (Auto) 0; Lymphocytes # (A) 0.4 k/uL (1.0-4.8); Lymphocytes % (A) 3 %; MCH 28.6 pg (25.0-35.0); MCHC 31.1 g/dL (31.0-37.0); Mean Platelet Volume 7.2; Monocytes # (A) 0.2 k/uL (0-1.0); Monocytes % (A) 2 %; Neutrophils # (A) 11.1 k/uL (1.3-7.7); Neutrophils % (A) 94 %; RBC 3.08 m/uL (3.80-5.40); RDW 15.1 % (11.5-15.5); WBC 11.8 k/uL (3.8-10.6)
[2017-08-19] MEDS: LEVOTHYROXINE 88 MCG TAB PO SCH (06:10)
[2017-08-19] MEDS: IPRATROPIUM-ALBUTEROL 3 ML NEB INHALATION SCH ×4 (08:14→20:32)
[2017-08-19] MEDS: BUDESONIDE 0.5 MG/2 ML NEBU INHALATION SCH ×2 (08:14→20:32)
[2017-08-19] MEDS: IPRATROPIUM-ALBUTEROL 3 ML NEB INHALATION PRN (09:13)
[2017-08-19] MEDS: methylPREDNISolone SOD SUCCI 40 MG/ML 1 ML VIAL IV SCH (09:24)
[2017-08-19] MEDS: ASPIRIN 325 MG TAB PO SCH ×2 (09:24→21:14)
[2017-08-19] MEDS: SERTRALINE 50 MG TAB PO SCH (09:25)
[2017-08-19] MEDS: SODIUM CHLORIDE TAB 1 GM TAB PO SCH ×2 (09:25→21:15)
[2017-08-19] MEDS: SENNOSIDES-DOCUSATE SODIUM 1 EACH TAB PO SCH ×2 (09:25→21:21)
[2017-08-19] MEDS: ACETAMINOPHEN TAB 325 MG TAB PO PRN (09:28)
[2017-08-19 12:07] LABS: ALT 49 U/L (9-52); AST 23 U/L (14-36); Alkaline Phosphatase 75 U/L (38-126); Anion Gap 6 mmol/L; Blood Urea Nitrogen 16 mg/dL (7-17); Calcium 8.1 mg/dL (8.4-10.2); Carbon Dioxide 23 mmol/L (22-30); Chloride 94 mmol/L (98-107); Glucose 172 mg/dL (74-99); Non-African American GFR(MDRD) >60 (>60 ml/min/1.73 sqM); Potassium 5.2 mmol/L (3.5-5.1); Sodium 123 mmol/L (137-145); Total Bilirubin <0.1 mg/dL (0.2-1.3); Total Protein 4.3 g/dL (6.3-8.2)
[2017-08-19] MEDS: amLODIPine 10 MG TAB PO SCH (13:10)
--- NOTE | 2017-08-19 14:23 | P.HPIM ---
History of Present Illness H&P Date: 08/19/17 Chief Complaint: Low-sodium level This is a 87-year-old female who was sent to the emergency room from senior living for evaluation of low sodium level. Patient was admitted under a different provider initially and was informed about her admission last night. Patient was recently discharged from the hospital and went to the senior living after she underwent total left hip hemiarthroplasty. She went to the senior living in a stable condition and subsequently had follow-up blood work showing sodium level of 120. She was sent back to the emergency room for further evaluation. Patient herself reported adequate oral intake and her daughter told me that she usually drinks ensure twice or 3 times a day. Patient was feeling weak and her main complaint was shortness of breath. She was noted to have audible wheezing on exam. Chest x-ray showed bilateral pleural effusion. Patient was admitted to the hospital and was given IV fluid hydration overnight. Review of Systems Review of system: 14 points review of systems were obtained and were negative except to what were mentioned in the HPI. Past Medical History Past Medical History: Asthma, COPD, Dementia, GERD/Reflux, Hyperlipidemia, Hypertension, Thyroid Disorder Additional Past Medical History / Comment(s): Severe reaction to general anesthesia in 2012, patient was severely weak, and "sick" according to daughter. Patient spent 2 weeks in rehab facility History of Any Multi-Drug Resistant Organisms: None Reported Past Surgical History: Orthopedic Surgery Additional Past Surgical History / Comment(s): Shoulder replacement. Past Anesthesia/Blood Transfusion Reactions: Previous Problems w/ Anesthesia Past Psychological History: Depression Smoking Status: Former smoker Past Alcohol Use History: None Reported Past Drug Use History: None Reported - Past Family History Father Family Medical History: Cancer Additional Family Medical History / Comment(s): colon cancer Medications and Allergies Home Medications Medication Instructions Recorded Confirmed Type Budesonide [Pulmicort] 0.5 mg INHALATION RT-BID 05/25/16 08/17/17 History Enalapril [Vasotec] 20 mg PO BID 05/25/16 08/17/17 History Levothyroxine Sodium [Synthroid] 88 mcg PO DAILY 05/25/16 08/17/17 History Montelukast Sodium [Singulair] 10 mg PO HS 05/25/16 08/17/17 History Sertraline HCl 50 mg PO DAILY 05/25/16 08/17/17 History Simvastatin [Zocor] 20 mg PO HS 05/25/16 08/17/17 History amLODIPine [Norvasc] 10 mg PO DAILY@1200 05/25/16 08/17/17 History predniSONE 10 mg PO DAILY 05/25/16 08/17/17 History Calcium Carb-Vit D 500Mg-200Un 2 tab PO DAILY@1800 08/08/17 08/17/17 History [Oscal 500+D] Donepezil [Aricept] 10 mg PO HS 08/08/17 08/17/17 History Sennosides-Docusate Sodium 1 tab PO BID #60 tablet 08/10/17 08/17/17 Rx [Senokot-S] Acetaminophen [Tylenol] 500 mg PO Q4-6H PRN #90 tab 08/13/17 08/17/17 Rx Ipratropium-Albuterol Nebulize 3 ml INHALATION RT-QID PRN #0 08/13/17 08/17/17 Rx [Duoneb 0.5 mg-3 mg/3 ml Soln] Aspirin 325 mg PO BID@0800,199908/17/17 08/17/17 History Allergies Allergy/AdvReac Type Severity Reaction Status Date / Time hydrocodone bitartrate AdvReac Nausea Verified 08/17/17 18:29 [From Vicodin] propoxyphene napsylate AdvReac Nausea Verified 08/17/17 18:29 [From Darvocet-N 100] Physical Exam Vitals: Vital Signs Temp Pulse Pulse Resp BP BP Pulse Ox 08/19/17 11:12 80 08/19/17 11:02 80 08/19/17 09:25 78 08/19/17 09:13 76 08/19/17 08:24 72 08/19/17 08:14 72 08/19/17 07:00 97.5 F L 73 16 111/58 97 08/18/17 23:00 98.7 F 82 20 124/59 96 08/18/17 20:45 80 08/18/17 20:22 80 08/18/17 16:20 84 08/18/17 16:10 84 08/18/17 15:00 96.9 F L 83 18 115/56 98 Intake and Output 08/18/17 08/19/17 08/19/17 22:59 06:59 14:59 Intake Total 1000 500 Output Total 300 550 Balance 700 -50 Intake: Intake, IV Titration 1000 500 Amount Sodium Chloride 0.9% 1, 1000 500 000 ml @ 75 mls/hr IV . [id number] [facility] Rx#:[id number] Output: Urine 300 550 Other: Voiding Method Indwelling Catheter Indwelling Catheter # Bowel Movements 1 General: The patient is awake and alert, in no distress Eye: there is normal conjunctiva bilaterally. Neck: The neck is supple, there is no JVD. Cardiovascular: Normal S1-S2, no S3-S4, no murmurs. Respiratory: Lungs with mild end expiratory wheezing all over the chest Gastrointestinal: Abdomen is soft, nontender Musculoskeletal: There is no pedal edema. Neurological:. Speech is normal. Skin: Skin is warm and dry Results CBC & Chem 7: 08/19/17 02:25 08/19/17 02:25 Labs: Abnormal Lab Results - Last 24 Hours (Table) 08/19/17 08/19/17 08/19/17 Range/Units 01:20 02:25 02:25 WBC 11.8 H (3.8-10.6) k/uL RBC 3.08 L (3.80-5.40) m/uL Hgb 8.8 L (11.4-16.0) gm/dL Hct 28.3 L (34.0-46.0) % Plt Count 840 H* (150-450) k/uL Neutrophils # 11.1 H (1.3-7.7) k/uL Lymphocytes # 0.4 L (1.0-4.8) k/uL Sodium 123 L (137-145) mmol/L Potassium 5.2 H (3.5-5.1) mmol/L Chloride 94 L (98-107) mmol/L Glucose 172 H (74-99) mg/dL Calcium 8.1 L (8.4-10.2) mg/dL Total Bilirubin <0.1 L (0.2-1.3) mg/dL Total Protein 4.3 L (6.3-8.2) g/dL Albumin 2.1 L (3.5-5.0) g/dL Stool Occult Blood Positive H (Negative) Microbiology - Last 24 Hours (Table) 08/17/17 19:45 Urine Culture - Final Urine,Catheterized Thrombosis Risk Factor Assmnt - Choose All That Apply Each Factor Represents 1 point: Abnormal pulmonary function (COPD), Medical pt on bed rest Each Risk Factor Represents 3 Points: Age 75 years or older Thrombosis Risk Factor Assessment Total Risk Factor Score: 5 Thrombosis Risk Factor Assessment Level: High Risk Assessment and Plan Assessment: 1. Hypovolemic hyponatremia, patient given IV fluid hydration overnight. We' ll repeat sodium level in the morning. She was started on sodium chloride tablets twice daily in the emergency room which we will continue. We will encourage oral hydration and high protein intake. Medication list reviewed. 2. Acute COPD exacerbation currently on IV steroids and bronchodilators. Would switch to oral prednisone tomorrow. We will repeat chest x-ray today. 3. Acute hypoxic respiratory failure on home O2 4. Severe emphysema with a prolonged history of tobacco abuse up until 2 weeks ago 5. Essential hypertension 6. Recent left hip fracture status post left hip hemiarthroplasty 7. Physical and medical debility Today, I had a prolonged discussion with the patient and her daughter about goals of care. Patient was previously enrolled in hospice. She is not quite sure how she wants to proceed was goals of care as she does not want to be in the hospital and would rather be comfortable. We had a prolonged discussion about options of treatment. For the time being will continue supportive care and current regimen. Patient wishes to return to rehab when medically cleared.
[2017-08-19] MEDS: ALPRAZolam 0.5 MG TAB PO PRN (15:15)
--- NOTE | 2017-08-19 15:27 | XR ---
EXAMINATION TYPE: XR chest 2V DATE OF EXAM: 08/19/2017 COMPARISON: Chest x-ray from 2 days ago. HISTORY: Cough, abnormal x-ray. TECHNIQUE: Frontal and lateral views of the chest are obtained. FINDINGS: There is persistent small to moderate-sized left greater than right pleural effusions. The re is no suspicious new focal airspace opacity or pneumothorax seen bilaterally. The cardiac silhouet te size is stable and within normal limits with atherosclerotic thoracic aorta. Surgical change right shoulder is noted. IMPRESSION: Overall stable findings, small to moderate sized left greater than right pleural effusio ns are present.
[2017-08-19] MEDS: CALCIUM CARB-VIT D 500MG-200UN 1 EACH TAB PO SCH (17:49)
[2017-08-19] MEDS: DONEPEZIL 10 MG TAB PO SCH (21:14)
[2017-08-19] MEDS: ATORVASTATIN 10 MG TAB PO SCH (21:14)
[2017-08-19] MEDS: MONTELUKAST 10 MG TAB PO SCH (21:15)
[2017-08-19] MEDS: MELATONIN 1 MG TAB PO SCH (21:19)
[2017-08-20] MEDS: LEVOTHYROXINE 88 MCG TAB PO SCH (05:49)
[2017-08-20] MEDS: SERTRALINE 50 MG TAB PO SCH (07:58)
[2017-08-20] MEDS: SODIUM CHLORIDE TAB 1 GM TAB PO SCH ×2 (07:58→20:39)
[2017-08-20] MEDS: predniSONE 20 MG TAB PO SCH (07:58)
[2017-08-20] MEDS: ASPIRIN 325 MG TAB PO SCH ×2 (07:58→20:38)
[2017-08-20] MEDS: SENNOSIDES-DOCUSATE SODIUM 1 EACH TAB PO SCH ×2 (07:58→20:39)
[2017-08-20] MEDS: IPRATROPIUM-ALBUTEROL 3 ML NEB INHALATION SCH ×4 (08:12→19:42)
[2017-08-20] MEDS: BUDESONIDE 0.5 MG/2 ML NEBU INHALATION SCH ×2 (08:12→19:42)
[2017-08-20 08:43] LABS: Basophils % (A) 0 %; CH 30.3; CHCM 32.1; Eosinophils # (A) 0.1 k/uL (0-0.7); Eosinophils % (A) 1 %; HDW 2.32; HGB 9.4 gm/dL (11.4-16.0); Luc # (Auto) 0.16; Luc % (Auto) 1; Lymphocytes # (A) 2.3 k/uL (1.0-4.8); Lymphocytes % (A) 11 %; MCH 28.9 pg (25.0-35.0); MCHC 30.5 g/dL (31.0-37.0); MCV 94.8 fL (80.0-100.0); Mean Platelet Volume 6.7; Monocytes % (A) 5 %; Neutrophils # (A) 16.8 k/uL (1.3-7.7); Neutrophils % (A) 82 %; RBC 3.27 m/uL (3.80-5.40); RDW 14.6 % (11.5-15.5); WBC 20.4 k/uL (3.8-10.6); WBC (Perox) 20.86
[2017-08-20 09:12] LABS: Anion Gap 4 mmol/L; Blood Urea Nitrogen 19 mg/dL (7-17); Carbon Dioxide 28 mmol/L (22-30); Chloride 91 mmol/L (98-107); Glucose 83 mg/dL (74-99); Non-African American GFR(MDRD) >60 (>60 ml/min/1.73 sqM); Sodium 123 mmol/L (137-145)
[2017-08-20] MEDS: amLODIPine 10 MG TAB PO SCH (11:28)
[2017-08-20] MEDS: ALPRAZolam 0.5 MG TAB PO PRN (11:30)
--- NOTE | 2017-08-20 12:01 | P.PN ---
Subjective Patient is feeling a lot better today. She denies shortness of breath at rest. Sodium level has not improved significantly. Objective - Vital Signs Vital signs: Vital Signs Temp 98.1 F 08/20/17 07:00 Pulse 102 H 08/20/17 08:27 Resp 18 08/20/17 08:12 BP 131/63 08/20/17 07:00 Pulse Ox 98 08/20/17 07:00 Intake & Output 08/19/17 08/20/17 08/20/17 18:59 06:59 18:59 Intake Total 600 1000 Output Total 450 Balance 150 1000 Intake: Intake, IV Titration 1000 Amount Sodium Chloride 0.9% 1, 1000 000 ml @ 75 mls/hr IV . [id number] Rx#:[id number] Oral 600 Output: Urine 450 Other: Voiding Method Indwelling Catheter Bedpan Bedpan Diaper Diaper # Voids 1 3 2 # Bowel Movements 1 1 - Exam General: The patient is awake and alert, in no distress Eye: there is normal conjunctiva bilaterally. Neck: The neck is supple, there is no JVD. Cardiovascular: Normal S1-S2, no S3-S4, no murmurs. Respiratory: Lungs clear to auscultation bilaterally Gastrointestinal: Abdomen is soft, nontender Musculoskeletal: There is no pedal edema. Neurological:. Speech is normal. Skin: Skin is warm and dry - Labs CBC & Chem 7: 08/20/17 08:07 08/20/17 08:07 Labs: Abnormal Lab Results - Last 24 Hours (Table) 08/19/17 08/20/17 08/20/17 Range/Units 02:25 08:07 08:07 WBC 20.4 H (3.8-10.6) k/uL RBC 3.27 L (3.80-5.40) m/uL Hgb 9.4 L (11.4-16.0) gm/dL Hct 31.0 L (34.0-46.0) % MCHC 30.5 L (31.0-37.0) g/dL Plt Count 1020 H* (150-450) k/uL Neutrophils # 16.8 H (1.3-7.7) k/uL Sodium 123 L 123 L (137-145) mmol/L Potassium 5.2 H (3.5-5.1) mmol/L Chloride 94 L 91 L (98-107) mmol/L BUN 19 H (7-17) mg/dL Glucose 172 H (74-99) mg/dL Calcium 8.1 L (8.4-10.2) mg/dL Total Bilirubin <0.1 L (0.2-1.3) mg/dL Total Protein 4.3 L (6.3-8.2) g/dL Albumin 2.1 L (3.5-5.0) g/dL Assessment and Plan Assessment: 1. Hypovolemic hyponatremia, patient given IV fluid hydration overnight. We' ll repeat sodium level in the morning. She was started on sodium chloride tablets twice daily in the emergency room which we will continue. We will encourage oral hydration and high protein intake. Medication list reviewed. 2. Acute COPD exacerbation currently on steroids and bronchodilators. Repeat chest x-ray showed similar findings. 3. Acute hypoxic respiratory failure on home O2 4. Severe emphysema with a prolonged history of tobacco abuse up until 2 weeks ago 5. Essential hypertension 6. Recent left hip fracture status post left hip hemiarthroplasty 7. Physical and medical debility 8. Thrombocytosis: May be reactive. We'll consult hematology for further evaluation.
--- NOTE | 2017-08-20 15:19 | CDI ---
In responding to this query, please exercise your independent professional judgment. The [facility] Coding Staff and Clinical Documentation Specialists appreciate your assistance in clarifying documentation, maintaining compliance with coding guidelines, accurately documenting patients condition and capturing severity of illness. The fact that a question is asked does not imply that any particular answer is desired or expected. Communication forms are a method of clarifying documentation and are not made part of the Legal Health Record. Thank you in advance for your clarification. Last Revision, December 2015 Mahi Castellanos [address] [place] [address] Documentation Clarification Form Date: 08/20/2017 2:47:00 PM From: Patsy Ko RN, CCDS Admit Date: 08/17/2017 8:52:00 PM Patient Name: Merari Schilling Visit Number: [id number] Dr. Sabra Chaudhari History/Risk Factors: Asthma, COPD, dementia, Gerd, Hyperlipedima, HTN, Thyroid disorder Tobacco use: former smoker Home oxygen: per attending documentation Clinical Indicators: 08/20 Attending Progress Note: "Acute hypoxic respiratory failure on home O2." Vital signs/Pulse oximetry: Temp 97.5, hr 72, RR 18, 119/44, spo2 93% 3L NC Lung/Breathing assessment: 08/19 Attending: "Respiratory: Lungs with mild end expiratory wheezing all over the chest." Treatment: Breathing TX: Duoneb QID INH, Singulair 10 mg PO Q HS, Pulmicort .5mg PO BID, Solumedrol 40mg IV Q 8 hrs O2: 3L NC In your professional opinion, can you please clarify if these findings signify one of the following conditions? Acuity: o Acute o Chronic o Acute on Chronic Respiratory Status: o Respiratory failure o Respiratory failure with hypercapnia o Respiratory failure with hypoxia o Acute Respiratory Distress o Other Diagnosis, please specify o Unable to determine Please document in your progress notes and discharge summary in order to capture severity of illness and risk of mortality. Include clinical findings that support your diagnosis. FYI: Press F11 to launch patient chart. HOWARD
[2017-08-20] MEDS: CALCIUM CARB-VIT D 500MG-200UN 1 EACH TAB PO SCH (17:43)
[2017-08-20] MEDS: ATORVASTATIN 10 MG TAB PO SCH (20:38)
[2017-08-20] MEDS: MONTELUKAST 10 MG TAB PO SCH (20:38)
[2017-08-20] MEDS: MELATONIN 1 MG TAB PO SCH (20:38)
[2017-08-20] MEDS: DONEPEZIL 10 MG TAB PO SCH (20:38)
[2017-08-21] MEDS: LEVOTHYROXINE 88 MCG TAB PO SCH (06:25)
[2017-08-21] MEDS: IPRATROPIUM-ALBUTEROL 3 ML NEB INHALATION SCH ×4 (07:29→19:10)
[2017-08-21] MEDS: BUDESONIDE 0.5 MG/2 ML NEBU INHALATION SCH ×2 (07:29→19:10)
[2017-08-21] MEDS: ASPIRIN 325 MG TAB PO SCH ×2 (07:58→20:08)
[2017-08-21] MEDS: SENNOSIDES-DOCUSATE SODIUM 1 EACH TAB PO SCH ×2 (07:58→20:09)
[2017-08-21] MEDS: SERTRALINE 50 MG TAB PO SCH (07:58)
[2017-08-21] MEDS: SODIUM CHLORIDE TAB 1 GM TAB PO SCH ×2 (07:59→20:09)
[2017-08-21] MEDS: predniSONE 20 MG TAB PO SCH (07:59)
[2017-08-21 09:18] LABS: Basophils % (A) 0 %; CH 30.4; CHCM 31.8; Eosinophils # (A) 0.1 k/uL (0-0.7); Eosinophils % (A) 1 %; HCT 28.7 % (34.0-46.0); HDW 2.33; HGB 8.6 gm/dL (11.4-16.0); Luc # (Auto) 0.11; Luc % (Auto) 1; Lymphocytes # (A) 2.8 k/uL (1.0-4.8); Lymphocytes % (A) 14 %; MCHC 30.1 g/dL (31.0-37.0); MCV 96.2 fL (80.0-100.0); Mean Platelet Volume 7.1; Monocytes # (A) 0.8 k/uL (0-1.0); Monocytes % (A) 4 %; Neutrophils # (A) 15.9 k/uL (1.3-7.7); Neutrophils % (A) 80 %; RBC 2.98 m/uL (3.80-5.40); RDW 14.6 % (11.5-15.5); WBC 19.7 k/uL (3.8-10.6); WBC (Perox) 20.12
[2017-08-21 09:28] LABS: Anion Gap 6 mmol/L; Blood Urea Nitrogen 21 mg/dL (7-17); Calcium 8.3 mg/dL (8.4-10.2); Carbon Dioxide 25 mmol/L (22-30); Chloride 92 mmol/L (98-107); Glucose 121 mg/dL (74-99); Non-African American GFR(MDRD) >60 (>60 ml/min/1.73 sqM); Potassium 4.8 mmol/L (3.5-5.1); Sodium 123 mmol/L (137-145)
[2017-08-21] MEDS: amLODIPine 10 MG TAB PO SCH (11:33)
[2017-08-21] MEDS: HEPARIN SODIUM,PORCINE 5,000 UNIT/ML 1 ML VIAL SQ SCH ×2 (13:34→20:13)
--- NOTE | 2017-08-21 13:55 | P.PN ---
Subjective No events overnight. Sodium level and platelet count is not changed significantly compared to yesterday patient is comfortable. Objective - Vital Signs Vital signs: Vital Signs Temp 97.5 F L 08/21/17 07:00 Pulse 92 08/21/17 11:19 Resp 18 08/21/17 07:50 BP 143/69 08/21/17 07:00 Pulse Ox 98 08/21/17 07:00 Intake & Output 08/20/17 08/21/17 08/21/17 18:59 06:59 18:59 Intake Total 900 Balance 900 Weight 43 kg Intake: Oral 900 Other: Voiding Method Bedpan Bedpan Bedpan Diaper Diaper Diaper # Voids 1 2 # Bowel Movements 1 - Exam General: The patient is awake and alert, in no distress Eye: there is normal conjunctiva bilaterally. Neck: The neck is supple, there is no JVD. Cardiovascular: Normal S1-S2, no S3-S4, no murmurs. Respiratory: Lungs clear to auscultation bilaterally Gastrointestinal: Abdomen is soft, nontender Musculoskeletal: There is no pedal edema. Neurological:. Speech is normal. Skin: Skin is warm and dry - Labs CBC & Chem 7: 08/21/17 08:28 08/21/17 08:28 Labs: Abnormal Lab Results - Last 24 Hours (Table) 08/20/17 08/20/17 08/21/17 Range/Units 08:07 08:07 08:28 WBC 19.7 H (3.8-10.6) k/uL RBC 2.98 L (3.80-5.40) m/uL Hgb 8.6 L (11.4-16.0) gm/dL Hct 28.7 L (34.0-46.0) % MCHC 30.1 L (31.0-37.0) g/dL Plt Count 1008 H* (150-450) k/uL Neutrophils # 15.9 H (1.3-7.7) k/uL Sodium (137-145) mmol/L Chloride (98-107) mmol/L BUN (7-17) mg/dL Glucose (74-99) mg/dL Calcium (8.4-10.2) mg/dL C-Reactive Protein 14.1 H (<10.0) mg/L RBC Folate 1,017 H (280 - 791) ng/mL 08/21/17 Range/Units 08:28 WBC (3.8-10.6) k/uL RBC (3.80-5.40) m/uL Hgb (11.4-16.0) gm/dL Hct (34.0-46.0) % MCHC (31.0-37.0) g/dL Plt Count (150-450) k/uL Neutrophils # (1.3-7.7) k/uL Sodium 123 L (137-145) mmol/L Chloride 92 L (98-107) mmol/L BUN 21 H (7-17) mg/dL Glucose 121 H (74-99) mg/dL Calcium 8.3 L (8.4-10.2) mg/dL C-Reactive Protein (<10.0) mg/L RBC Folate (280 - 791) ng/mL Assessment and Plan Assessment: 1. Hypovolemic hyponatremia, patient given IV fluid hydration overnight. We' ll repeat sodium level in the morning. She was started on sodium chloride tablets twice daily in the emergency room which we will continue. We will encourage oral hydration and high protein intake. Medication list reviewed. 2. Acute COPD exacerbation currently on steroids and bronchodilators. Repeat chest x-ray showed similar findings. 3. Acute hypoxic respiratory failure on home O2 4. Severe emphysema with a prolonged history of tobacco abuse up until 2 weeks ago 5. Essential hypertension 6. Recent left hip fracture status post left hip hemiarthroplasty 7. Physical and medical debility 8. Thrombocytosis: May be reactive. We'll consult hematology for further evaluation. Awaiting hematology recommendations. I would postpone discharge for tomorrow. We will continue gentle IV fluid hydration in the meantime.
[2017-08-21 15:52] LABS: Iron Saturation 9.29 (12.00-45.00)
[2017-08-21] MEDS: CALCIUM CARB-VIT D 500MG-200UN 1 EACH TAB PO SCH (17:51)
--- NOTE | 2017-08-21 19:41 | P.CONS ---
History of Present Illness - Reason for Consult Consult date: 08/21/17 thrombocytosis Requesting physician: Sabra Chaudhari - Chief Complaint failure to thrive, abnormal labs - History of Present Illness Info taken from chart as pt is not wanting to talk this AM, she just wants to sleep. Pt sent from rehab for failure to thrive. She had left hip hemiarthoplasty on 08/08, she was discharged to rehab, oral intake declined and weakness progressed , pt was hyponatremic, anemic, WBC and platelets elevated. Review of Systems ROS unobtainable: due to mental status Past Medical History Past Medical History: Asthma, COPD, Dementia, GERD/Reflux, Hyperlipidemia, Hypertension, Thyroid Disorder Additional Past Medical History / Comment(s): Severe reaction to general anesthesia in 2012, patient was severely weak, and "sick" according to daughter. Patient spent 2 weeks in rehab facility History of Any Multi-Drug Resistant Organisms: None Reported Past Surgical History: Orthopedic Surgery Additional Past Surgical History / Comment(s): Shoulder replacement. Past Anesthesia/Blood Transfusion Reactions: Previous Problems w/ Anesthesia Past Psychological History: Depression Smoking Status: Former smoker Past Alcohol Use History: Unable to Obtain Past Drug Use History: Unable to Obtain - Past Family History Father Family Medical History: Cancer Additional Family Medical History / Comment(s): colon cancer Medications and Allergies Home Medications Medication Instructions Recorded Confirmed Type Budesonide [Pulmicort] 0.5 mg INHALATION RT-BID 05/25/16 08/17/17 History Enalapril [Vasotec] 20 mg PO BID 05/25/16 08/17/17 History Levothyroxine Sodium [Synthroid] 88 mcg PO DAILY 05/25/16 08/17/17 History Montelukast Sodium [Singulair] 10 mg PO HS 05/25/16 08/17/17 History Sertraline HCl 50 mg PO DAILY 05/25/16 08/17/17 History Simvastatin [Zocor] 20 mg PO HS 05/25/16 08/17/17 History amLODIPine [Norvasc] 10 mg PO DAILY@1200 05/25/16 08/17/17 History predniSONE 10 mg PO DAILY 05/25/16 08/17/17 History Calcium Carb-Vit D 500Mg-200Un 2 tab PO DAILY@1800 08/08/17 08/17/17 History [Oscal 500+D] Donepezil [Aricept] 10 mg PO HS 08/08/17 08/17/17 History Sennosides-Docusate Sodium 1 tab PO BID #60 tablet 08/10/17 08/17/17 Rx [Senokot-S] Acetaminophen [Tylenol] 500 mg PO Q4-6H PRN #90 tab 08/13/17 08/17/17 Rx Ipratropium-Albuterol Nebulize 3 ml INHALATION RT-QID PRN #0 08/13/17 08/17/17 Rx [Duoneb 0.5 mg-3 mg/3 ml Soln] Aspirin 325 mg PO BID@0800,199908/17/17 08/17/17 History Allergies Allergy/AdvReac Type Severity Reaction Status Date / Time hydrocodone bitartrate AdvReac Nausea Verified 08/17/17 18:29 [From Vicodin] propoxyphene napsylate AdvReac Nausea Verified 08/17/17 18:29 [From Darvocet-N 100] Physical Exam Vitals: Vital Signs Temp Pulse Pulse Resp BP BP Pulse Ox 08/21/17 19:11 86 08/21/17 15:41 90 08/21/17 15:33 88 95 08/21/17 15:00 98.9 F 86 18 121/58 95 08/21/17 11:19 92 08/21/17 11:14 90 08/21/17 07:50 90 18 08/21/17 07:33 92 08/21/17 07:00 97.5 F L 86 16 143/69 98 08/20/17 22:59 98.3 F 98 18 131/60 93 L 08/20/17 19:56 88 08/20/17 19:42 88 Intake and Output 08/21/17 08/21/17 08/21/17 06:59 14:59 22:59 Intake Total 600 Balance 600 Intake: Oral 600 Other: Voiding Method Bedpan Bedpan Bedpan Diaper Diaper Diaper # Voids 2 3 Weight 43 kg Patient Weight 08/22/17 06:59 Weight 43 kg - Constitutional General appearance: no acute distress, thin - Neck Neck: no lymphadenopathy - Respiratory Respiratory: bilateral: rales - Cardiovascular Heart sounds: normal: S1, S2 leg Peripheral Edema: bilateral: Trace - Gastrointestinal General gastrointestinal: no absent bowel sounds, no decreased bowel sounds, no distended, no hepatomegaly, no hyperactive bowel sounds, normal bowel sounds, no organomegaly, no rigid, no scaphoid, soft, no splenomegaly, no tenderness, no umbilical hernia, no ventral hernia - Integumentary Integumentary: pale - Psychiatric unable to assess, pt states "I'm tired and want to sleep" was able to get her to tell me her name Results CBC & Chem 7: 08/21/17 08:28 08/21/17 08:28 Labs: Abnormal Lab Results - Last 24 Hours (Table) 08/20/17 08/21/17 08/21/17 Range/Units 08:07 08:28 08:28 WBC 19.7 H (3.8-10.6) k/uL RBC 2.98 L (3.80-5.40) m/uL Hgb 8.6 L (11.4-16.0) gm/dL Hct 28.7 L (34.0-46.0) % MCHC 30.1 L (31.0-37.0) g/dL Plt Count 1008 H* (150-450) k/uL Neutrophils # 15.9 H (1.3-7.7) k/uL Sodium 123 L (137-145) mmol/L Chloride 92 L (98-107) mmol/L BUN 21 H (7-17) mg/dL Glucose 121 H (74-99) mg/dL Calcium 8.3 L (8.4-10.2) mg/dL Iron (50-170) ug/dL Iron Saturation (12.00-45.00) RBC Folate 1,017 H (280 - 791) ng/mL 08/21/17 Range/Units 08:28 WBC (3.8-10.6) k/uL RBC (3.80-5.40) m/uL Hgb (11.4-16.0) gm/dL Hct (34.0-46.0) % MCHC (31.0-37.0) g/dL Plt Count (150-450) k/uL Neutrophils # (1.3-7.7) k/uL Sodium (137-145) mmol/L Chloride (98-107) mmol/L BUN (7-17) mg/dL Glucose (74-99) mg/dL Calcium (8.4-10.2) mg/dL Iron 29 L (50-170) ug/dL Iron Saturation 9.29 L (12.00-45.00) RBC Folate (280 - 791) ng/mL Chest x-ray: report reviewed Assessment and Plan (1) Neutrophilic leukocytosis Current Visit: Yes Status: Acute Priority: High Code(s): D72.9 - DISORDER OF WHITE BLOOD CELLS, UNSPECIFIED SNOMED Code(s): 309581296 (2) Anemia Current Visit: Yes Status: Acute Priority: High Code(s): D64.9 - ANEMIA, UNSPECIFIED SNOMED Code(s): 997769885 (3) Thrombocytosis Current Visit: Yes Status: Acute Priority: High Code(s): D47.3 - ESSENTIAL (HEMORRHAGIC) THROMBOCYTHEMIA SNOMED Code(s): 0761167 Plan: Multiple lab studies have been requested for evaluation of abnormal Hgb, plt, and WBC Most likely reactive state due to recent surgery. No need for PRBC transfusion at this time Cont ASA, DVT prophylaxis Leukocytosis, mostly neutrophiles, likely a combination of steroids and recent surgery, pt remains afebrile at this time, she will continue to be monitored
[2017-08-21] MEDS: ATORVASTATIN 10 MG TAB PO SCH (20:08)
[2017-08-21] MEDS: DONEPEZIL 10 MG TAB PO SCH (20:09)
[2017-08-21] MEDS: MONTELUKAST 10 MG TAB PO SCH (20:09)
[2017-08-21] MEDS: MELATONIN 1 MG TAB PO SCH (20:09)
[2017-08-22] MEDS: LEVOTHYROXINE 88 MCG TAB PO SCH (05:49)
[2017-08-22] MEDS: BUDESONIDE 0.5 MG/2 ML NEBU INHALATION SCH ×2 (07:43→20:29)
[2017-08-22] MEDS: IPRATROPIUM-ALBUTEROL 3 ML NEB INHALATION SCH ×4 (07:43→20:29)
[2017-08-22] MEDS: SERTRALINE 50 MG TAB PO SCH (08:11)
[2017-08-22] MEDS: SENNOSIDES-DOCUSATE SODIUM 1 EACH TAB PO SCH ×2 (08:11→21:16)
[2017-08-22] MEDS: HEPARIN SODIUM,PORCINE 5,000 UNIT/ML 1 ML VIAL SQ SCH ×2 (08:11→21:16)
[2017-08-22] MEDS: ASPIRIN 325 MG TAB PO SCH ×2 (08:11→21:16)
[2017-08-22] MEDS: SODIUM CHLORIDE TAB 1 GM TAB PO SCH ×2 (08:11→21:16)
[2017-08-22] MEDS: predniSONE 20 MG TAB PO SCH (08:11)
[2017-08-22 08:36] LABS: Anion Gap 4 mmol/L; Blood Urea Nitrogen 20 mg/dL (7-17); Carbon Dioxide 25 mmol/L (22-30); Chloride 94 mmol/L (98-107); Glucose 66 mg/dL (74-99); Non-African American GFR(MDRD) >60 (>60 ml/min/1.73 sqM); Potassium 4.7 mmol/L (3.5-5.1); Sodium 123 mmol/L (137-145)
[2017-08-22] MEDS ORDERED: SODIUM FERRIC GLUCONAT-SUCROSE 125 MG in SODIUM CHLORIDE 0.9% 100 ML IVPB ONE (09:00)
[2017-08-22 09:04] LABS: Basophils % (A) 0 %; CH 30.4; CHCM 31.9; Eosinophils # (A) 0.1 k/uL (0-0.7); Eosinophils % (A) 0 %; HCT 24.7 % (34.0-46.0); HDW 2.27; HGB 7.6 gm/dL (11.4-16.0); Luc # (Auto) 0.16; Luc % (Auto) 1; Lymphocytes # (A) 2.3 k/uL (1.0-4.8); Lymphocytes % (A) 13 %; MCH 29.3 pg (25.0-35.0); MCHC 30.6 g/dL (31.0-37.0); MCV 95.8 fL (80.0-100.0); Mean Platelet Volume 7.7; Monocytes # (A) 1.1 k/uL (0-1.0); Monocytes % (A) 6 %; Neutrophils # (A) 13.3 k/uL (1.3-7.7); Neutrophils % (A) 79 %; RBC 2.58 m/uL (3.80-5.40); RDW 14.7 % (11.5-15.5); WBC 16.9 k/uL (3.8-10.6)
--- NOTE | 2017-08-22 11:36 | P.DS ---
Providers Date of admission: 08/17/17 20:52 Expected date of discharge: 08/22/17 Attending physician: Sabra Chaudhari Consults: 08/20/17 11:59 Consult Physician Routine Consulting Provider: Cesar Sanabria Consult Reason/Comments: Thrombocytosis Do you want consulting provider notified?: Yes Primary care physician: [facility] Course: 1. Hypovolemic hyponatremia, with a component of SIADH. She was started on sodium chloride tablets twice daily. Encourage oral hydration and high protein intake. Medication list reviewed. Sodium level around 123 2. Acute COPD exacerbation currently on steroids and bronchodilators. Repeat chest x-ray showed stable findings. 3. Acute hypoxic respiratory failure on home O2 4. Severe emphysema with a prolonged history of tobacco abuse up until 2 weeks ago 5. Essential hypertension 6. Recent left hip fracture status post left hip hemiarthroplasty 7. Physical and medical debility 8. Thrombocytosis: May be reactive. Seen and evaluated by hematology. Platelet count improving Patient Condition at Discharge: Fair Plan - Discharge Summary New Discharge Prescriptions: New Acetaminophen Tab [Tylenol] 650 mg PO Q6HR PRN tab PRN Reason: Mild Pain Or Fever > 100.5 Melatonin 2 mg PO HS tab predniSONE 40 mg PO DAILY 3 Days #6 tab Sodium Chloride Tab 1 gm PO BID #30 tab Continue Sertraline HCl 50 mg PO DAILY Budesonide [Pulmicort] 0.5 mg INHALATION RT-BID Simvastatin [Zocor] 20 mg PO HS Montelukast Sodium [Singulair] 10 mg PO HS Levothyroxine Sodium [Synthroid] 88 mcg PO DAILY amLODIPine [Norvasc] 10 mg PO DAILY@1200 Donepezil [Aricept] 10 mg PO HS Calcium Carb-Vit D 500Mg-200Un [Oscal 500+D] 2 tab PO DAILY@1800 Sennosides-Docusate Sodium [Senokot-S] 1 tab PO BID #60 tablet Ipratropium-Albuterol Nebulize [Duoneb 0.5 mg-3 mg/3 ml Soln] 3 ml INHALATION RT-QID PRN #0 PRN Reason: Shortness Of Breath Aspirin 325 mg PO BID@0800,2000 Discontinued predniSONE 10 mg PO DAILY Enalapril [Vasotec] 20 mg PO BID Acetaminophen [Tylenol] 500 mg PO Q4-6H PRN #90 tab PRN Reason: Pain Discharge Medication List Budesonide [Pulmicort] 0.5 mg INHALATION RT-BID 05/25/16 [History] Levothyroxine Sodium [Synthroid] 88 mcg PO DAILY 05/25/16 [History] Montelukast Sodium [Singulair] 10 mg PO HS 05/25/16 [History] Sertraline HCl 50 mg PO DAILY 05/25/16 [History] Simvastatin [Zocor] 20 mg PO HS 05/25/16 [History] amLODIPine [Norvasc] 10 mg PO DAILY@1200 05/25/16 [History] Calcium Carb-Vit D 500Mg-200Un [Oscal 500+D] 2 tab PO DAILY@1800 08/08/17 [ History] Donepezil [Aricept] 10 mg PO HS 08/08/17 [History] Sennosides-Docusate Sodium [Senokot-S] 1 tab PO BID #60 tablet 08/10/17 [Rx] Ipratropium-Albuterol Nebulize [Duoneb 0.5 mg-3 mg/3 ml Soln] 3 ml INHALATION RT -QID PRN #0 08/13/17 [Rx] Aspirin 325 mg PO BID@0800,2000 08/17/17 [History] Acetaminophen Tab [Tylenol] 650 mg PO Q6HR PRN tab 08/22/17 [Rx] Melatonin 2 mg PO HS tab 08/22/17 [Rx] Sodium Chloride Tab 1 gm PO BID #30 tab 08/22/17 [Rx] predniSONE 40 mg PO DAILY 3 Days #6 tab 08/22/17 [Rx] Follow up Appointment(s)/Referral(s): Sabra Chaudhari MD [STAFF PHYSICIAN] - 1 Week Patient Instructions/Handouts: Hyponatremia (DC) Discharge Disposition: TRANSFER TO SNF/ECF
[2017-08-22 12:28] LABS: Glucose,Whole Blood 143 mg/dL (75-99)
[2017-08-22] MEDS: amLODIPine 10 MG TAB PO SCH (12:46)
--- NOTE | 2017-08-22 13:00 | XR ---
EXAMINATION TYPE: XR chest 1V portable DATE OF EXAM: 08/22/2017 COMPARISON: 08/19/2017 HISTORY: Shortness of breath TECHNIQUE: Single frontal view of the chest is obtained. FINDINGS: Bilateral infiltrate and small effusion. Atherosclerotic change aorta. Postsurgical change right shoulder. No overt failure or pneumothorax. Correlate for hiatal hernia. IMPRESSION: 1. Bilateral infiltrate and pleural effusion are stable. 2. Correlate for hiatal hernia.
[2017-08-22] MEDS: IPRATROPIUM-ALBUTEROL 3 ML NEB INHALATION PRN (13:08)
[2017-08-22] MEDS ORDERED: FUROSEMIDE 10 MG/ML 2 ML VIAL IV ONE ×2 (14:01→21:39)
[2017-08-22 15:09] LABS: Basophils % (A) 0 %; CH 29.4; CHCM 31.1; Eosinophils # (A) 0.1 k/uL (0-0.7); Eosinophils % (A) 0 %; HCT 37.4 % (34.0-46.0); HDW 2.29; HGB 11.6 gm/dL (11.4-16.0); Hypochromasia Slight; Luc # (Auto) 0.08; Luc % (Auto) 0; Lymphocytes # (A) 1.4 k/uL (1.0-4.8); Lymphocytes % (A) 5 %; MCH 29.5 pg (25.0-35.0); MCV 95.1 fL (80.0-100.0); Mean Platelet Volume 7.4; Monocytes # (A) 0.5 k/uL (0-1.0); Monocytes % (A) 2 %; Neutrophils # (A) 25.8 k/uL (1.3-7.7); Neutrophils % (A) 92 %; RBC 3.94 m/uL (3.80-5.40); RDW 15.4 % (11.5-15.5); WBC (Perox) 28.94
[2017-08-22] MEDS: ALPRAZolam 0.5 MG TAB PO PRN ×2 (15:16→22:33)
[2017-08-22 15:22] LABS: WBC 27.9 k/uL (3.8-10.6)
[2017-08-22] MEDS ORDERED: LACTULOSE 20 GM/30 ML CUP PO ONE (16:37)
[2017-08-22] MEDS ORDERED: ONDANSETRON 4 MG/2 ML VIAL IVP PRN (16:38)
[2017-08-22] MEDS ORDERED: SODIUM CHLORIDE 0.9% 500 ML IV ONE (16:39)
[2017-08-22 17:05] LABS: Basophils # (A) 0.1 k/uL (0-0.2); Basophils % (A) 0 %; CH 29.5; Eosinophils # (A) 0.1 k/uL (0-0.7); Eosinophils % (A) 0 %; HCT 34.3 % (34.0-46.0); HGB 10.6 gm/dL (11.4-16.0); Hypochromasia Slight; Luc % (Auto) 0; Lymphocytes # (A) 1.1 k/uL (1.0-4.8); Lymphocytes % (A) 4 %; MCH 29.5 pg (25.0-35.0); MCHC 30.9 g/dL (31.0-37.0); MCV 95.7 fL (80.0-100.0); Monocytes # (A) 0.8 k/uL (0-1.0); Monocytes % (A) 2 %; Neutrophils # (A) 30.3 k/uL (1.3-7.7); Neutrophils % (A) 93 %; RBC 3.58 m/uL (3.80-5.40); RDW 15.6 % (11.5-15.5); WBC (Perox) 33.71
[2017-08-22] MEDS: CALCIUM CARB-VIT D 500MG-200UN 1 EACH TAB PO SCH (18:00)
[2017-08-22] MEDS: MONTELUKAST 10 MG TAB PO SCH (21:16)
[2017-08-22] MEDS: DONEPEZIL 10 MG TAB PO SCH (21:16)
[2017-08-22] MEDS: MELATONIN 1 MG TAB PO SCH (21:16)
[2017-08-22] MEDS: ATORVASTATIN 10 MG TAB PO SCH (21:16)
[2017-08-23] MEDS: LEVOTHYROXINE 88 MCG TAB PO SCH (06:04)
[2017-08-23] MEDS: BUDESONIDE 0.5 MG/2 ML NEBU INHALATION SCH ×2 (08:06→20:14)
[2017-08-23] MEDS: IPRATROPIUM-ALBUTEROL 3 ML NEB INHALATION SCH ×4 (08:06→20:14)
[2017-08-23] MEDS: SODIUM CHLORIDE TAB 1 GM TAB PO SCH ×2 (08:17→19:54)
[2017-08-23] MEDS: HEPARIN SODIUM,PORCINE 5,000 UNIT/ML 1 ML VIAL SQ SCH ×2 (08:17→19:53)
[2017-08-23] MEDS: SENNOSIDES-DOCUSATE SODIUM 1 EACH TAB PO SCH ×2 (08:18→19:53)
[2017-08-23] MEDS: ASPIRIN 325 MG TAB PO SCH ×2 (08:18→19:52)
[2017-08-23] MEDS: SERTRALINE 50 MG TAB PO SCH (08:18)
[2017-08-23] MEDS: predniSONE 20 MG TAB PO SCH (08:18)
[2017-08-23 08:39] LABS: CH 30.5; CHCM 32.2; HCT 27.4 % (34.0-46.0); HDW 2.42; MCH 28.6 pg (25.0-35.0); MCHC 30.1 g/dL (31.0-37.0); MCV 95.3 fL (80.0-100.0); Mean Platelet Volume 6.6; RBC 2.88 m/uL (3.80-5.40); RDW 14.8 % (11.5-15.5); WBC 23.9 k/uL (3.8-10.6)
[2017-08-23 08:43] LABS: Anion Gap 3 mmol/L; Blood Urea Nitrogen 23 mg/dL (7-17); Calcium 7.7 mg/dL (8.4-10.2); Carbon Dioxide 26 mmol/L (22-30); Chloride 97 mmol/L (98-107); Glucose 71 mg/dL (74-99); HGB 8.2 gm/dL (11.4-16.0); Non-African American GFR(MDRD) >60 (>60 ml/min/1.73 sqM); Potassium 4.3 mmol/L (3.5-5.1); Sodium 126 mmol/L (137-145)
[2017-08-23 10:46] LABS: WBC 32.4 k/uL (3.8-10.6)
[2017-08-23] MEDS: amLODIPine 10 MG TAB PO SCH (11:58)
--- NOTE | 2017-08-23 12:10 | P.PN ---
Subjective Patient was supposed to be discharged to [facility] for rehabilitation yesterday. Early afternoon patient became more short of breath and is having more rhonchi to chest auscultation. Chest x-ray showed no significant changes. She received 2 doses of IV Lasix. She feels more comfortable today. She said that her shortness of breath is improving. She was noted to have urinary retention with 400 mL of urine last night and 500 this morning and she was straight cathed on both occasions. Objective - Vital Signs Vital signs: Vital Signs Temp 97.5 F L 08/23/17 07:00 Pulse 84 08/23/17 11:58 Resp 16 08/23/17 11:58 BP 129/59 08/23/17 07:00 Pulse Ox 95 08/23/17 08:06 Intake & Output 08/22/17 08/23/17 08/23/17 18:59 06:59 18:59 Output Total 500 410 Balance -500 -410 Weight 43 kg Output: Urine 500 410 Uretheral (Woodson) 500 410 Other: Voiding Method Incontinent Incontinent Incontinent # Voids 1 1 # Bowel Movements 1 1 - Exam General: The patient is awake and alert, in no distress Eye: there is normal conjunctiva bilaterally. Neck: The neck is supple, there is no JVD. Cardiovascular: Normal S1-S2, no S3-S4, no murmurs. Respiratory: Lungs clear to auscultation bilaterally Gastrointestinal: Abdomen is soft, nontender Musculoskeletal: There is no pedal edema. Neurological:. Speech is normal. Skin: Skin is warm and dry - Labs CBC & Chem 7: 08/23/17 08:18 08/23/17 08:18 Labs: Abnormal Lab Results - Last 24 Hours (Table) 08/22/17 08/22/17 08/22/17 Range/Units 12:27 14:50 16:55 WBC 27.9 H* 32.4 H* (3.8-10.6) k/uL RBC 3.58 L (3.80-5.40) m/uL Hgb 10.6 L (11.4-16.0) gm/dL Hct (34.0-46.0) % MCHC 30.9 L (31.0-37.0) g/dL RDW 15.6 H (11.5-15.5) % Plt Count 1171 H* 1092 H* (150-450) k/uL Neutrophils # 25.8 H 30.3 H (1.3-7.7) k/uL Sodium (137-145) mmol/L Chloride (98-107) mmol/L BUN (7-17) mg/dL Glucose (74-99) mg/dL POC Glucose (mg/dL) 143 H (75-99) mg/dL Calcium (8.4-10.2) mg/dL 08/23/17 08/23/17 Range/Units 08:18 08:18 WBC 23.9 H (3.8-10.6) k/uL RBC 2.88 L (3.80-5.40) m/uL Hgb 8.2 L D (11.4-16.0) gm/dL Hct 27.4 L (34.0-46.0) % MCHC 30.1 L (31.0-37.0) g/dL RDW (11.5-15.5) % Plt Count 1010 H* (150-450) k/uL Neutrophils # (1.3-7.7) k/uL Sodium 126 L (137-145) mmol/L Chloride 97 L (98-107) mmol/L BUN 23 H (7-17) mg/dL Glucose 71 L (74-99) mg/dL POC Glucose (mg/dL) (75-99) mg/dL Calcium 7.7 L (8.4-10.2) mg/dL Assessment and Plan Assessment: 1. Hypovolemic hyponatremia, improving slightly. Her baseline sodium level appears to be around 125. She was started on sodium chloride tablets twice daily in the emergency room which we will continue. We will encourage oral hydration and high protein intake. Medication list reviewed. 2. Acute COPD exacerbation currently on steroids and bronchodilators. Repeat chest x-ray showed similar findings. 3. Acute on chronic hypoxic respiratory failure on home O2 3 L 4. Severe emphysema with a prolonged history of tobacco abuse up until 2 weeks ago 5. Essential hypertension 6. Recent left hip fracture status post left hip hemiarthroplasty 7. Physical and medical debility 8. Thrombocytosis: Probably reactive. Patient was seen and evaluated by hematology 9. Anemia of chronic disease Today, I had a prolonged discussion with patient and her daughter at bedside about goals of care. Patient was enrolled in hospice previously at home but her daughter disenrolled her last admission when she presented with a hip fracture. Her daughter is hoping that her mother might get stronger with therapy and would be able to walk again. She is not ready for hospice as of yet. She is realistic ago and she understand that her mother's condition is terminal in particular in regard of his severe emphysema. She would like to wait over the weekend before making decisions about hospice. In the meantime, we'll continue bronchodilators and oral prednisone. I would change her Lasix to oral and monitor her sodium level closely. Advised the nurse to check postvoid residual in 8 hours and if patient continues to have retention then Woodson catheter should be inserted. We will repeat lab work in the morning.
[2017-08-23] MEDS: CALCIUM CARB-VIT D 500MG-200UN 1 EACH TAB PO SCH (18:48)
[2017-08-23] MEDS: ATORVASTATIN 10 MG TAB PO SCH (19:52)
[2017-08-23] MEDS: MELATONIN 1 MG TAB PO SCH (19:53)
[2017-08-23] MEDS: DONEPEZIL 10 MG TAB PO SCH (19:53)
[2017-08-23] MEDS: MONTELUKAST 10 MG TAB PO SCH (19:53)
[2017-08-23] MEDS: ALPRAZolam 0.5 MG TAB PO PRN (19:57)
[2017-08-24] MEDS: ACETAMINOPHEN TAB 325 MG TAB PO PRN (04:53)
[2017-08-24] MEDS: LEVOTHYROXINE 88 MCG TAB PO SCH (06:26)
[2017-08-24] MEDS: BUDESONIDE 0.5 MG/2 ML NEBU INHALATION SCH ×2 (08:25→20:16)
[2017-08-24] MEDS: IPRATROPIUM-ALBUTEROL 3 ML NEB INHALATION SCH ×4 (08:25→20:16)
[2017-08-24] MEDS: ASPIRIN 325 MG TAB PO SCH ×2 (08:45→20:35)
[2017-08-24] MEDS: HEPARIN SODIUM,PORCINE 5,000 UNIT/ML 1 ML VIAL SQ SCH ×2 (08:46→20:35)
[2017-08-24] MEDS: predniSONE 20 MG TAB PO SCH (08:46)
[2017-08-24] MEDS: SODIUM CHLORIDE TAB 1 GM TAB PO SCH ×2 (08:46→20:34)
[2017-08-24] MEDS: SENNOSIDES-DOCUSATE SODIUM 1 EACH TAB PO SCH ×2 (08:46→20:34)
[2017-08-24] MEDS: FUROSEMIDE 10 MG TAB PO SCH (08:46)
[2017-08-24] MEDS: SERTRALINE 50 MG TAB PO SCH (08:47)
--- NOTE | 2017-08-24 12:13 | P.PN ---
Subjective Progress Note Date: 08/24/17 This is a 87-year-old female who was sent to the emergency room from [facility] for evaluation of low sodium level. Patient was admitted under a different provider initially and was informed about her admission last night. Patient was recently discharged from the hospital and went to the [facility] after she underwent total left hip hemiarthroplasty. She went to the [facility] in a stable condition and subsequently had follow-up blood work showing sodium level of 120. She was sent back to the emergency room for further evaluation. Patient herself reported adequate oral intake and her daughter told me that she usually drinks ensure twice or 3 times a day. Patient was feeling weak and her main complaint was shortness of breath. She was noted to have audible wheezing on exam. Chest x-ray showed bilateral pleural effusion. Patient was admitted to the hospital and was given IV fluid hydration overnight. 08/23/17 Patient was supposed to be discharged to [facility] for rehabilitation on . Early afternoon patient became more short of breath and is having more rhonchi to chest auscultation. Chest x-ray showed no significant changes. She received 2 doses of IV Lasix. She feels more comfortable today. She said that her shortness of breath is improving. She was noted to have urinary retention with 400 mL of urine last night and 500 this morning and she was straight cathed on both occasions. 08/24/17 patient had evidence of urinary retention. Woodson catheter was inserted yesterday. She is lying in bed comfortably. Plan is for her to stay in the hospital over the weekend and see how she does with physical therapy and decide if patient needs to be placed back on hospice. Objective - Vital Signs Vital signs: Vital Signs Temp 97.2 F L 08/24/17 07:00 Pulse 76 08/24/17 11:44 Resp 16 08/24/17 07:00 BP 127/55 08/24/17 07:00 Pulse Ox 98 08/24/17 07:00 Intake & Output 08/23/17 08/24/17 08/24/17 18:59 06:59 18:59 Intake Total 200 Output Total 660 375 Balance -460 -375 Weight 43 kg Intake: Oral 200 Output: Urine 660 375 Uretheral (Woodson) 660 Other: Voiding Method Incontinent Indwelling Catheter # Voids 5 1 - Exam Head normocephalic Neck supple Lungs diminished at bases no crackles Heart regular rate and rhythm S1-S2, no rub or gallop Abdomen is soft nontender nondistended positive bowel sounds no hepatosplenomegaly Extremities no edema Neuro awake and lying in bed comfortably area totally confused - Labs CBC & Chem 7: 08/23/17 08:18 08/23/17 08:18 Assessment and Plan Assessment: 1. 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 improving slightly. Her baseline sodium level appears to be around 125. She was started on sodium chloride tablets twice daily in the emergency room which we will continue. We will encourage oral hydration and high protein intake. Medication list reviewed. 2. Acute COPD exacerbation currently on steroids and bronchodilators. Repeat chest x-ray showed similar findings. 3. Acute on chronic hypoxic respiratory failure on home O2 3 L 4. Severe emphysema with a prolonged history of tobacco abuse up until 2 weeks ago 5. Essential hypertension 6. Recent left hip fracture status post left hip hemiarthroplasty 7. Physical and medical debility 8. Thrombocytosis: Probably reactive due to recent surgery. Patient was seen and evaluated by hematology 9. Anemia of chronic disease 10. Fluid overload patient received 2 doses of IV Lasix. She's been restarted on her oral Lasix. Dr. Chaudhari had a prolonged discussion with patient and her daughter at bedside about goals of care. Patient was enrolled in hospice previously at home but her daughter disenrolled her last admission when she presented with a hip fracture. Her daughter is hoping that her mother might get stronger with therapy and would be able to walk again. She is not ready for hospice as of yet. She is realistic ago and she understand that her mother's condition is terminal in particular in regard of his severe emphysema. She would like to wait over the weekend before making decisions about hospice. DVT prophylaxis subcu heparin I performed an examination of the patient and discussed their management with the physician Director Digital Strategy. I have reviewed the Physician Director Digital Strategy's notes and agree with the documented findings and plan of care
[2017-08-24] MEDS: IPRATROPIUM-ALBUTEROL 3 ML NEB INHALATION PRN (14:31)
[2017-08-24] MEDS: ALPRAZolam 0.5 MG TAB PO PRN (15:08)
[2017-08-24] MEDS: CALCIUM CARB-VIT D 500MG-200UN 1 EACH TAB PO SCH (16:27)
[2017-08-24] MEDS: MELATONIN 1 MG TAB PO SCH (20:35)
[2017-08-24] MEDS: MONTELUKAST 10 MG TAB PO SCH (20:35)
[2017-08-24] MEDS: ATORVASTATIN 10 MG TAB PO SCH (20:35)
[2017-08-24] MEDS: DONEPEZIL 10 MG TAB PO SCH (20:35)
[2017-08-25] MEDS: LEVOTHYROXINE 88 MCG TAB PO SCH (06:08)
[2017-08-25] MEDS: BUDESONIDE 0.5 MG/2 ML NEBU INHALATION SCH ×2 (07:49→20:24)
[2017-08-25] MEDS: IPRATROPIUM-ALBUTEROL 3 ML NEB INHALATION SCH ×4 (07:49→20:24)
[2017-08-25 08:02] LABS: Basophils % (A) 0 %; CH 30.3; CHCM 31.8; Eosinophils # (A) 0.1 k/uL (0-0.7); Eosinophils % (A) 1 %; HCT 25.7 % (34.0-46.0); HDW 2.37; HGB 7.9 gm/dL (11.4-16.0); Luc # (Auto) 0.13; Luc % (Auto) 1; Lymphocytes # (A) 2.2 k/uL (1.0-4.8); Lymphocytes % (A) 14 %; MCH 29.6 pg (25.0-35.0); MCHC 30.9 g/dL (31.0-37.0); MCV 95.9 fL (80.0-100.0); Monocytes % (A) 6 %; Neutrophils # (A) 12.7 k/uL (1.3-7.7); Neutrophils % (A) 78 %; RBC 2.68 m/uL (3.80-5.40); WBC 16.2 k/uL (3.8-10.6); WBC (Perox) 16.33
[2017-08-25] MEDS: HEPARIN SODIUM,PORCINE 5,000 UNIT/ML 1 ML VIAL SQ SCH ×2 (08:19→21:45)
[2017-08-25] MEDS: predniSONE 20 MG TAB PO SCH (08:19)
[2017-08-25] MEDS: ASPIRIN 325 MG TAB PO SCH ×2 (08:19→21:45)
[2017-08-25] MEDS: SODIUM CHLORIDE TAB 1 GM TAB PO SCH ×2 (08:20→21:45)
[2017-08-25] MEDS: FUROSEMIDE 10 MG TAB PO SCH (08:20)
[2017-08-25] MEDS: SERTRALINE 50 MG TAB PO SCH (08:20)
[2017-08-25] MEDS: SENNOSIDES-DOCUSATE SODIUM 1 EACH TAB PO SCH ×2 (08:20→21:45)
[2017-08-25 08:32] LABS: ALT 43 U/L (9-52); AST 26 U/L (14-36); Alkaline Phosphatase 85 U/L (38-126); Anion Gap 3 mmol/L; Blood Urea Nitrogen 24 mg/dL (7-17); Calcium 8.3 mg/dL (8.4-10.2); Carbon Dioxide 29 mmol/L (22-30); Chloride 94 mmol/L (98-107); Glucose 72 mg/dL (74-99); Non-African American GFR(MDRD) >60 (>60 ml/min/1.73 sqM); Potassium 4.9 mmol/L (3.5-5.1); Sodium 126 mmol/L (137-145); Total Bilirubin 0.2 mg/dL (0.2-1.3); Total Protein 4.4 g/dL (6.3-8.2)
[2017-08-25] MEDS: ACETAMINOPHEN TAB 325 MG TAB PO PRN (15:03)
[2017-08-25] MEDS: ALPRAZolam 0.5 MG TAB PO PRN (15:04)
--- NOTE | 2017-08-25 16:59 | P.PN ---
Subjective Progress Note Date: 08/25/17 Principal diagnosis: Hyponatremia, shortness of breath This is a 87-year-old female who was [facility] emergency room from [facility] for evaluation of low sodium level. Patient was admitted under a different provider initially and was informed about her admission last night. Patient was recently discharged from the hospital and went to the [facility] after she underwent total left hip hemiarthroplasty. She went to the [facility] in a stable condition and subsequently had follow-up blood work showing sodium level of 120. She was sent back to the emergency room for further evaluation. Patient herself reported adequate oral intake and her daughter told me that she usually drinks ensure twice or 3 times a day. Patient was feeling weak and her main complaint was shortness of breath. She was noted to have audible wheezing on exam. Chest x-ray showed bilateral pleural effusion. Patient was admitted to the hospital and was given IV fluid hydration overnight. 08/23/17 Patient was supposed to be discharged to [facility] for rehabilitation on . Early afternoon patient became more short of breath and is having more rhonchi to chest auscultation. Chest x-ray showed no significant changes. She received 2 doses of IV Lasix. She feels more comfortable today. She said that her shortness of breath is improving. She was noted to have urinary retention with 400 mL of urine last night and 500 this morning and she was straight cathed on both occasions. 08/24/17 patient had evidence of urinary retention. Woodson catheter was inserted yesterday. She is lying in bed comfortably. Plan is for her to stay in the hospital over the weekend and see how she does with physical therapy and decide if patient needs to be placed back on hospice. 08/25/2017 patient is lying in bed comfortably, she is still complaining of shortness of breath with any activity, chest x-ray revealing bilateral infiltrates and bilateral small pleural effusions, patient still has hyponatremia, sodium is 126 Objective - Vital Signs Vital signs: Vital Signs Temp 97.4 F L 08/25/17 15:00 Pulse 88 08/25/17 16:10 Resp 20 08/25/17 15:00 BP 123/60 08/25/17 15:00 Pulse Ox 96 08/25/17 15:00 Intake & Output 08/24/17 08/25/17 08/25/17 18:59 06:59 18:59 Intake Total 240 Output Total 4853 627 2246 Balance -3797 -938 -8783 Intake: Oral 240 Output: Urine 3324 470 3512 Other: Voiding Method Indwelling Catheter Indwelling Catheter Indwelling Catheter # Voids 1 # Bowel Movements 0 - Labs CBC & Chem 7: 08/25/17 07:28 08/25/17 07:28 Labs: Abnormal Lab Results - Last 24 Hours (Table) 08/25/17 08/25/17 Range/Units 07:28 07:28 WBC 16.2 H (3.8-10.6) k/uL RBC 2.68 L (3.80-5.40) m/uL Hgb 7.9 L (11.4-16.0) gm/dL Hct 25.7 L (34.0-46.0) % MCHC 30.9 L (31.0-37.0) g/dL Plt Count 907 H* (150-450) k/uL Neutrophils # 12.7 H (1.3-7.7) k/uL Sodium 126 L (137-145) mmol/L Chloride 94 L (98-107) mmol/L BUN 24 H (7-17) mg/dL Glucose 72 L (74-99) mg/dL Calcium 8.3 L (8.4-10.2) mg/dL Total Protein 4.4 L (6.3-8.2) g/dL Albumin 2.2 L (3.5-5.0) g/dL Assessment and Plan Plan: 1. 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 improving slightly. Her baseline sodium level appears to be around 125. She was started on sodium chloride tablets twice daily in the emergency room which we will continue. We will encourage oral hydration and high protein intake. Medication list reviewed. 2. Acute COPD exacerbation currently on steroids and bronchodilators. Repeat chest x-ray showed similar findings. 3. Acute on chronic hypoxic respiratory failure on home O2 3 L 4. Severe emphysema with a prolonged history of tobacco abuse up until 2 weeks ago 5. Essential hypertension 6. Recent left hip fracture status post left hip hemiarthroplasty 7. Physical and medical debility 8. Thrombocytosis: Probably reactive due to recent surgery. Patient was seen and evaluated by hematology 9. Anemia of chronic disease 10. Fluid overload patient received 2 doses of IV Lasix. She's been restarted on her oral Lasix. At this time condition is stable without significant improvement Will consult pulmonary in regard to shortness of breath and bilateral pleural effusion, consult nephrology in regard to hyponatremia will recheck labs in a.m.
[2017-08-25] MEDS: CALCIUM CARB-VIT D 500MG-200UN 1 EACH TAB PO SCH (17:23)
[2017-08-25] MEDS: MELATONIN 1 MG TAB PO SCH (21:44)
[2017-08-25] MEDS: MONTELUKAST 10 MG TAB PO SCH (21:45)
[2017-08-25] MEDS: ATORVASTATIN 10 MG TAB PO SCH (21:45)
[2017-08-25] MEDS: DONEPEZIL 10 MG TAB PO SCH (21:45)
[2017-08-26] MEDS: LEVOTHYROXINE 88 MCG TAB PO SCH (06:51)
[2017-08-26] MEDS: HEPARIN SODIUM,PORCINE 5,000 UNIT/ML 1 ML VIAL SQ SCH ×2 (07:41→22:04)
[2017-08-26] MEDS: ASPIRIN 325 MG TAB PO SCH ×2 (07:41→22:04)
[2017-08-26] MEDS: FUROSEMIDE 10 MG TAB PO SCH (07:41)
[2017-08-26] MEDS: SODIUM CHLORIDE TAB 1 GM TAB PO SCH ×2 (07:42→22:03)
[2017-08-26] MEDS: SENNOSIDES-DOCUSATE SODIUM 1 EACH TAB PO SCH ×2 (07:42→22:03)
[2017-08-26] MEDS: SERTRALINE 50 MG TAB PO SCH (07:42)
[2017-08-26] MEDS: predniSONE 20 MG TAB PO SCH (07:42)
[2017-08-26] MEDS: IPRATROPIUM-ALBUTEROL 3 ML NEB INHALATION SCH ×4 (07:50→20:41)
[2017-08-26] MEDS: BUDESONIDE 0.5 MG/2 ML NEBU INHALATION SCH ×2 (07:50→20:41)
[2017-08-26 08:57] LABS: Basophils % (A) 0 %; CH 30.6; CHCM 31.4; Eosinophils # (A) 0.1 k/uL (0-0.7); Eosinophils % (A) 1 %; HCT 28.9 % (34.0-46.0); HDW 2.29; HGB 8.7 gm/dL (11.4-16.0); Hypochromasia Slight; Luc # (Auto) 0.18; Luc % (Auto) 1; Lymphocytes # (A) 3.2 k/uL (1.0-4.8); Lymphocytes % (A) 16 %; MCH 29.5 pg (25.0-35.0); MCV 98.2 fL (80.0-100.0); Macrocytosis Slight; Mean Platelet Volume 6.9; Monocytes # (A) 1.3 k/uL (0-1.0); Monocytes % (A) 6 %; Neutrophils # (A) 14.9 k/uL (1.3-7.7); Neutrophils % (A) 76 %; RBC 2.94 m/uL (3.80-5.40); RDW 15.4 % (11.5-15.5); WBC 19.7 k/uL (3.8-10.6); WBC (Perox) 19.63
[2017-08-26 09:15] LABS: ALT 37 U/L (9-52); AST 30 U/L (14-36); Alkaline Phosphatase 93 U/L (38-126); Anion Gap 5 mmol/L; Blood Urea Nitrogen 26 mg/dL (7-17); Calcium 8.5 mg/dL (8.4-10.2); Carbon Dioxide 31 mmol/L (22-30); Chloride 91 mmol/L (98-107); Glucose 72 mg/dL (74-99); Non-African American GFR(MDRD) >60 (>60 ml/min/1.73 sqM); Potassium 4.6 mmol/L (3.5-5.1); Sodium 127 mmol/L (137-145); Total Bilirubin 0.2 mg/dL (0.2-1.3); Total Protein 4.7 g/dL (6.3-8.2)
[2017-08-26] MEDS ORDERED: SODIUM CHLORIDE 0.9% 1,000 ML IV SCH (12:15)
--- NOTE | 2017-08-26 12:38 | P.NPCON ---
History of Present Illness - Reason for Consult Consult date: 08/26/17 hyponatremia - Chief Complaint Hyponatremia - History of Present Illness Mrs. Schilling is a 87-year-old lady [facility]. She was sent with a sodium of 120. She has history of chronic hyponatremia with a sodium of 133 last year. When she came into the hospital on 08/19/2017 sodium was 120 initially given IV fluids and sodium did not improve when she was getting bilateral pleural effusions. She was started on Lasix and her sodium started to improve slowly. Nephrology was concentrated. Sodium was 126 yesterday improved to 127 today she is doing on Lasix 30 mg by mouth daily. She is leading to 40 At the making good amount of urine. As per the nursing staff she doesn't eat and drink a lot. No nausea vomiting diarrhea. No thiazide diuretic use. No history of malignancy. She is on Zoloft for depression. She is also on prednisone 40 mg daily cause unclear possibly related to COPD. Review of Systems No vision problems Denies chest pain shortness of breath palpitations No nausea vomiting diarrhea No dysuria hematuria No joint pains, tenderness Past Medical History Past Medical History: Asthma, COPD, Dementia, GERD/Reflux, Hyperlipidemia, Hypertension, Thyroid Disorder Additional Past Medical History / Comment(s): Severe reaction to general anesthesia in 2012, patient was severely weak, and "sick" according to daughter. Patient spent 2 weeks in rehab facility History of Any Multi-Drug Resistant Organisms: None Reported Past Surgical History: Orthopedic Surgery Additional Past Surgical History / Comment(s): Shoulder replacement. Past Anesthesia/Blood Transfusion Reactions: Previous Problems w/ Anesthesia Past Psychological History: Depression Smoking Status: Former smoker Past Alcohol Use History: Unable to Obtain Past Drug Use History: Unable to Obtain - Past Family History Father Family Medical History: Cancer Additional Family Medical History / Comment(s): colon cancer Medications and Allergies Home Medications Medication Instructions Recorded Confirmed Type Budesonide [Pulmicort] 0.5 mg INHALATION RT-BID 05/25/16 08/17/17 History Levothyroxine Sodium [Synthroid] 88 mcg PO DAILY 05/25/16 08/17/17 History Montelukast Sodium [Singulair] 10 mg PO HS 05/25/16 08/17/17 History Sertraline HCl 50 mg PO DAILY 05/25/16 08/17/17 History Simvastatin [Zocor] 20 mg PO HS 05/25/16 08/17/17 History amLODIPine [Norvasc] 10 mg PO DAILY@1200 05/25/16 08/17/17 History Calcium Carb-Vit D 500Mg-200Un 2 tab PO DAILY@1800 08/08/17 08/17/17 History [Oscal 500+D] Donepezil [Aricept] 10 mg PO HS 08/08/17 08/17/17 History Sennosides-Docusate Sodium 1 tab PO BID #60 tablet 08/10/17 08/17/17 Rx [Senokot-S] Ipratropium-Albuterol Nebulize 3 ml INHALATION RT-QID PRN #0 08/13/17 08/17/17 Rx [Duoneb 0.5 mg-3 mg/3 ml Soln] Aspirin 325 mg PO BID@0800,2000 08/17/17 08/17/17 History Acetaminophen Tab [Tylenol] 650 mg PO Q6HR PRN tab 08/22/17 Rx Melatonin 2 mg PO HS tab 08/22/17 Rx Sodium Chloride Tab 1 gm PO BID #30 tab 08/22/17 Rx predniSONE 40 mg PO DAILY 3 Days #6 tab 08/22/17 Rx Allergies Allergy/AdvReac Type Severity Reaction Status Date / Time hydrocodone bitartrate AdvReac Nausea Verified 08/17/17 18:29 [From Vicodin] propoxyphene napsylate AdvReac Nausea Verified 08/17/17 18:29 [From Darvocet-N 100] Physical Exam Vitals: Vital Signs Temp Pulse Pulse Resp BP BP Pulse Ox 08/26/17 11:37 88 08/26/17 11:27 88 08/26/17 08:13 88 08/26/17 07:51 84 08/26/17 07:00 98.2 F 80 20 129/68 98 08/25/17 23:00 99.2 F 89 16 122/60 96 08/25/17 20:39 92 08/25/17 20:24 84 08/25/17 20:00 0 L 08/25/17 16:10 88 08/25/17 15:56 88 08/25/17 15:00 97.4 F L 86 20 123/60 96 Intake and Output 08/25/17 08/26/17 08/26/17 23:59 06:59 14:59 Intake Total 240 Output Total Balance 240 Intake: Oral 240 Output: Urine Other: Voiding Method Indwelling Catheter # Voids # Bowel Movements Lying in bed in no acute distress S1 and S2 heart Lungs clear to auscultation No edema Results - Lab Results Most recent lab results Calcium 8.5 mg/dL (8.4-10.2) 08/26/17 08:15 08/26/17 08:15 08/26/17 08:15 Assessment and Plan Assessment: Impression: #1 hypotonic chronic hyponatremia secondary to SIADH. #2 metabolic alkalosis suspect secondary to diuretic use. #3 protein calorie malnutrition with serum albumin of 2. #4 COPD #5 hypertension contact currently controlled. Recommendations: #1 workup is consistent with SIADH with high urine osmolality and urine electrolytes. #2 hold Lasix as she is getting alkalotic. Component of hypovolemic hyponatremia. #3 repeat labs tonight and again in the morning. Check both serum and urine osmolalities including urine studies. #4 if sodium dropping and alkalosis getting worse, consider IV fluids. #5 discontinue Zoloft. Very much for this consultation we'll follow along while she is in the hospital.
--- NOTE | 2017-08-26 13:43 | P.CNPUL ---
History of Present Illness Consult date: 08/26/17 Reason for consult: dyspnea, pleural effusion History of present illness: 87-year-old here patient, a chronic smoker with known history of severe emphysema, who came into the hospital because of increased shortness of breath and the patient was diagnosed having an acute COPD exacerbation. The patient was also diagnosed to have a hypovolemic hyponatremia with a component of SIADH. I was asked to evaluate this patient because of pleural effusions and I was asked to make further recommendations regarding this ongoing issue. Review of Systems Constitutional: Reports fatigue, Reports poor appetite, Reports weight loss Eyes: bilateral decreased vision, denies blurred vision, denies bulging eye Ears: bilateral: decreased hearing, deny: ear discharge, earache Ears, nose, mouth and throat: Denies headache, Denies sore throat Cardiovascular: Reports decreased exercise tolerance Respiratory: Reports cough, Reports dyspnea, Reports wheezing Gastrointestinal: Denies abdominal pain, Denies diarrhea, Denies nausea, Denies vomiting Genitourinary: Denies dysuria, Denies hematuria Musculoskeletal: absent: ankle pain, ankle stiffness, ankle swelling Integumentary: Denies pruritus, Denies rash Neurological: Reports gait dysfunction Psychiatric: Denies anxiety, Denies depression Endocrine: Denies fatigue, Denies weight change Past Medical History Past Medical History: Asthma, COPD, Dementia, GERD/Reflux, Hyperlipidemia, Hypertension, Thyroid Disorder Additional Past Medical History / Comment(s): COPD, dementia, hypertension, hyperlipidemia, hypothyroidism, a recent fall with fracture of the left femoral neck requiring ORIF on 08/08/2017, Severe reaction to general anesthesia in 2012 History of Any Multi-Drug Resistant Organisms: None Reported Past Surgical History: Orthopedic Surgery Additional Past Surgical History / Comment(s): Shoulder replacement.left hip ORIF for femoral neck fracture in July 2017 Past Anesthesia/Blood Transfusion Reactions: Previous Problems w/ Anesthesia Past Psychological History: Depression Smoking Status: Former smoker Past Alcohol Use History: Unable to Obtain Past Drug Use History: Unable to Obtain - Past Family History Father Family Medical History: Cancer Additional Family Medical History / Comment(s): colon cancer Medications and Allergies Home Medications Medication Instructions Recorded Confirmed Type Budesonide [Pulmicort] 0.5 mg INHALATION RT-BID 05/25/16 08/17/17 History Levothyroxine Sodium [Synthroid] 88 mcg PO DAILY 05/25/16 08/17/17 History Montelukast Sodium [Singulair] 10 mg PO HS 05/25/16 08/17/17 History Sertraline HCl 50 mg PO DAILY 05/25/16 08/17/17 History Simvastatin [Zocor] 20 mg PO HS 05/25/16 08/17/17 History amLODIPine [Norvasc] 10 mg PO DAILY@1200 05/25/16 08/17/17 History Calcium Carb-Vit D 500Mg-200Un 2 tab PO DAILY@1800 08/08/17 08/17/17 History [Oscal 500+D] Donepezil [Aricept] 10 mg PO HS 08/08/17 08/17/17 History Sennosides-Docusate Sodium 1 tab PO BID #60 tablet 08/10/17 08/17/17 Rx [Senokot-S] Ipratropium-Albuterol Nebulize 3 ml INHALATION RT-QID PRN #0 08/13/17 08/17/17 Rx [Duoneb 0.5 mg-3 mg/3 ml Soln] Aspirin 325 mg PO BID@0800,2000 08/17/17 08/17/17 History Acetaminophen Tab [Tylenol] 650 mg PO Q6HR PRN tab 08/22/17 Rx Melatonin 2 mg PO HS tab 08/22/17 Rx Sodium Chloride Tab 1 gm PO BID #30 tab 08/22/17 Rx predniSONE 40 mg PO DAILY 3 Days #6 tab 08/22/17 Rx Allergies Allergy/AdvReac Type Severity Reaction Status Date / Time hydrocodone bitartrate AdvReac Nausea Verified 08/17/17 18:29 [From Vicodin] propoxyphene napsylate AdvReac Nausea Verified 08/17/17 18:29 [From Darvocet-N 100] Physical Exam Vitals: Vital Signs Temp Pulse Pulse Resp BP BP Pulse Ox 08/26/17 11:37 88 08/26/17 11:27 88 08/26/17 08:13 88 08/26/17 07:51 84 08/26/17 07:00 98.2 F 80 20 129/68 98 08/25/17 23:00 99.2 F 89 16 122/60 96 08/25/17 20:39 92 08/25/17 20:24 84 08/25/17 20:00 0 L 08/25/17 16:10 88 08/25/17 15:56 88 08/25/17 15:00 97.4 F L 86 20 123/60 96 Intake and Output 08/25/17 08/26/17 08/26/17 23:59 06:59 14:59 Intake Total 240 Output Total 1425 Balance -1185 Intake: Oral 240 Output: Urine 1425 Other: Voiding Method Indwelling Catheter # Voids # Bowel Movements 0 this is a thin frail elderly female patient nonacute distress.Head exam was generally normal. There was no scleral icterus or corneal arcus. Mucous membranes were moist. Neck is positive for JVD there is no goiter or neck masses this point. Lung sounds are diminished in lung bases bilaterally. The patient is a barrel chest.Cardiac exam revealed the PMI to be normally situated and sized. The rhythm was regular and no extrasystoles were noted during several minutes of auscultation. The first and second heart sounds were normal and physiologic splitting of the second heart sound was noted. There were no murmurs, rubs, clicks, or gallops.Abdominal exam revealed normal bowel sounds. The abdomen was soft, non-tender, and without masses, organomegaly, or appreciable enlargement of the abdominal aorta.Examination of the extremities revealed easily palpable radial, femoral and pedal pulses. There was no cyanosis , clubbing or edema. Neurologically the patient is awake and alert and she is following commands and answering questions appropriately.Examination of the skin revealed no evidence of significant rashes, suspicious appearing nevi or other concerning lesions. Results - Laboratory Findings CBC and BMP: 08/26/17 08:15 08/26/17 08:15 Abnormal lab findings: Abnormal Labs 08/17/17 08/17/17 08/17/17 19:41 19:41 19:45 WBC 13.5 H RBC 3.65 L Hgb 10.5 L Hct MCHC 30.4 L RDW Plt Count 860 H* Neutrophils # 11.0 H Lymphocytes # Monocytes # Sodium 121 L Potassium Chloride 91 L Carbon Dioxide BUN Glucose POC Glucose (mg/dL) Osmolality 256 L Calcium Iron Iron Saturation Total Bilirubin AST 39 H C-Reactive Protein Total Protein 4.9 L Albumin 2.4 L RBC Folate Ur Random Sodium 117 H Stool Occult Blood 08/18/17 08/18/17 08/19/17 07:37 07:37 01:20 WBC 12.3 H RBC 3.25 L Hgb 9.5 L Hct 30.3 L MCHC RDW Plt Count 889 H* Neutrophils # 9.2 H Lymphocytes # Monocytes # Sodium 122 L Potassium Chloride 93 L Carbon Dioxide BUN Glucose 71 L POC Glucose (mg/dL) Osmolality Calcium 8.1 L Iron Iron Saturation Total Bilirubin AST C-Reactive Protein Total Protein 4.4 L Albumin 2.1 L RBC Folate Ur Random Sodium Stool Occult Blood Positive H 08/19/17 08/19/17 08/20/17 02:25 02:25 08:07 WBC 11.8 H 20.4 H RBC 3.08 L 3.27 L Hgb 8.8 L 9.4 L Hct 28.3 L 31.0 L MCHC 30.5 L RDW Plt Count 840 H* 1020 H* Neutrophils # 11.1 H 16.8 H Lymphocytes # 0.4 L Monocytes # Sodium 123 L Potassium 5.2 H Chloride 94 L Carbon Dioxide BUN Glucose 172 H POC Glucose (mg/dL) Osmolality Calcium 8.1 L Iron Iron Saturation Total Bilirubin <0.1 L AST C-Reactive Protein Total Protein 4.3 L Albumin 2.1 L RBC Folate Ur Random Sodium Stool Occult Blood 08/20/17 08/20/17 08/20/17 08:07 08:07 08:07 WBC RBC Hgb Hct MCHC RDW Plt Count Neutrophils # Lymphocytes # Monocytes # Sodium 123 L Potassium Chloride 91 L Carbon Dioxide BUN 19 H Glucose POC Glucose (mg/dL) Osmolality Calcium Iron Iron Saturation Total Bilirubin AST C-Reactive Protein 14.1 H Total Protein Albumin RBC Folate 1,017 H Ur Random Sodium Stool Occult Blood 08/21/17 08/21/17 08/21/17 08:28 08:28 08:28 WBC 19.7 H RBC 2.98 L Hgb 8.6 L Hct 28.7 L MCHC 30.1 L RDW Plt Count 1008 H* Neutrophils # 15.9 H Lymphocytes # Monocytes # Sodium 123 L Potassium Chloride 92 L Carbon Dioxide BUN 21 H Glucose 121 H POC Glucose (mg/dL) Osmolality Calcium 8.3 L Iron 29 L Iron Saturation 9.29 L Total Bilirubin AST C-Reactive Protein Total Protein Albumin RBC Folate Ur Random Sodium Stool Occult Blood 08/22/17 08/22/17 08/22/17 07:20 07:20 12:27 WBC 16.9 H RBC 2.58 L Hgb 7.6 L Hct 24.7 L MCHC 30.6 L RDW Plt Count 783 H Neutrophils # 13.3 H Lymphocytes # Monocytes # 1.1 H Sodium 123 L Potassium Chloride 94 L Carbon Dioxide BUN 20 H Glucose 66 L POC Glucose (mg/dL) 143 H Osmolality Calcium 8.0 L Iron Iron Saturation Total Bilirubin AST C-Reactive Protein Total Protein Albumin RBC Folate Ur Random Sodium Stool Occult Blood 08/22/17 08/22/17 08/23/17 14:50 16:55 08:18 WBC 27.9 H* 32.4 H* 23.9 H RBC 3.58 L 2.88 L Hgb 10.6 L 8.2 L D Hct 27.4 L MCHC 30.9 L 30.1 L RDW 15.6 H Plt Count 1171 H* 1092 H* 1010 H* Neutrophils # 25.8 H 30.3 H Lymphocytes # Monocytes # Sodium Potassium Chloride Carbon Dioxide BUN Glucose POC Glucose (mg/dL) Osmolality Calcium Iron Iron Saturation Total Bilirubin AST C-Reactive Protein Total Protein Albumin RBC Folate Ur Random Sodium Stool Occult Blood 08/23/17 08/25/17 08/25/17 08:18 07:28 07:28 WBC 16.2 H RBC 2.68 L Hgb 7.9 L Hct 25.7 L MCHC 30.9 L RDW Plt Count 907 H* Neutrophils # 12.7 H Lymphocytes # Monocytes # Sodium 126 L 126 L Potassium Chloride 97 L 94 L Carbon Dioxide BUN 23 H 24 H Glucose 71 L 72 L POC Glucose (mg/dL) Osmolality Calcium 7.7 L 8.3 L Iron Iron Saturation Total Bilirubin AST C-Reactive Protein Total Protein 4.4 L Albumin 2.2 L RBC Folate Ur Random Sodium Stool Occult Blood 08/25/17 08/26/17 08/26/17 21:12 08:15 08:15 WBC 19.7 H RBC 2.94 L Hgb 8.7 L Hct 28.9 L MCHC 30.0 L RDW Plt Count 967 H* Neutrophils # 14.9 H Lymphocytes # Monocytes # 1.3 H Sodium 127 L Potassium Chloride 91 L Carbon Dioxide 31 H BUN 26 H Glucose 72 L POC Glucose (mg/dL) Osmolality 275 L Calcium Iron Iron Saturation Total Bilirubin AST C-Reactive Protein Total Protein 4.7 L Albumin 2.4 L RBC Folate Ur Random Sodium Stool Occult Blood - Diagnostic Findings Chest x-ray: image reviewed Assessment and Plan Plan: assessment 1. bilateral pleural effusion, rule out underlying CHF 2 hyponatremia, under investigation. Rule out underlying CHF.patient is hyponatremia has been chronic and the patient has had low sodium level for quite some time. Nephrology has been consulted. Possibility of drug-induced at the age cannot be completely excluded. 3 COPD 4 metabolic alkalosis secondary to diuresis 5 hypertension 6 hypothyroidism 7 hyperlipidemia 8 dementia 9 recent fall with fracture of the hip status post ORIF.plan FARRAH There is no need for thoracentesis. The pleural effusions are small. Nephrology evaluation regarding the hyponatremia. Echo cardiogram. Continue bronchodilators. We'll continue to follow.
--- NOTE | 2017-08-26 14:38 | P.PN ---
Subjective Principal diagnosis: Hyponatremia, shortness of breath This is a 87-year-old female who was sent to the emergency room from custodial for evaluation of low sodium level. Patient was admitted under a different provider initially and was informed about her admission last night. Patient was recently discharged from the hospital and went to the custodial after she underwent total left hip hemiarthroplasty. She went to the custodial in a stable condition and subsequently had follow-up blood work showing sodium level of 120. She was sent back to the emergency room for further evaluation. Patient herself reported adequate oral intake and her daughter told me that she usually drinks ensure twice or 3 times a day. Patient was feeling weak and her main complaint was shortness of breath. She was noted to have audible wheezing on exam. Chest x-ray showed bilateral pleural effusion. Patient was admitted to the hospital and was given IV fluid hydration overnight. 08/23/17 Patient was supposed to be discharged to [facility] for rehabilitation on . Early afternoon patient became more short of breath and is having more rhonchi to chest auscultation. Chest x-ray showed no significant changes. She received 2 doses of IV Lasix. She feels more comfortable today. She said that her shortness of breath is improving. She was noted to have urinary retention with 400 mL of urine last night and 500 this morning and she was straight cathed on both occasions. 08/24/17 patient had evidence of urinary retention. Woodson catheter was inserted yesterday. She is lying in bed comfortably. Plan is for her to stay in the hospital over the weekend and see how she does with physical therapy and decide if patient needs to be placed back on hospice. 08/25/2017 patient is lying in bed comfortably, she is still complaining of shortness of breath with any activity, chest x-ray revealing bilateral infiltrates and bilateral small pleural effusions, patient still has hyponatremia, sodium is 126 On 08/26/2017 patient is alert and oriented 3 in no apparent distress, she states that her shortness of breath is slightly better than yesterday, she is complaining of bilateral feet pain otherwise no complaints. Objective - Vital Signs Vital signs: Vital Signs Temp 98.2 F 08/26/17 07:00 Pulse 88 08/26/17 11:37 Resp 20 08/26/17 07:00 BP 129/68 08/26/17 07:00 Pulse Ox 98 08/26/17 07:00 Intake & Output 08/25/17 08/26/17 08/26/17 19:59 06:59 18:59 Intake Total 240 Output Total 1425 Balance -1185 Intake: Oral 240 Output: Urine 1425 Other: Voiding Method Indwelling Catheter # Voids # Bowel Movements 0 - Exam HEENT head normocephalic and atraumatic Neck is supple no JVD no goiter no lymphadenopathy Chest exam reveals a few scattered crackles bilaterally no wheezing Cardiac exam reveals regular heart sounds no gallops no murmurs Abdomen is soft nontender no organomegaly with normal bowel sounds Extremity exam reveals no edema no cyanosis or clubbing there is a scabbed wound in on the right pretibial area - Labs CBC & Chem 7: 08/26/17 08:15 08/26/17 08:15 Labs: Abnormal Lab Results - Last 24 Hours (Table) 08/25/17 08/26/17 08/26/17 Range/Units 21:12 08:15 08:15 WBC 19.7 H (3.8-10.6) k/uL RBC 2.94 L (3.80-5.40) m/uL Hgb 8.7 L (11.4-16.0) gm/dL Hct 28.9 L (34.0-46.0) % MCHC 30.0 L (31.0-37.0) g/dL Plt Count 967 H* (150-450) k/uL Neutrophils # 14.9 H (1.3-7.7) k/uL Monocytes # 1.3 H (0-1.0) k/uL Sodium 127 L (137-145) mmol/L Chloride 91 L (98-107) mmol/L Carbon Dioxide 31 H (22-30) mmol/L BUN 26 H (7-17) mg/dL Glucose 72 L (74-99) mg/dL Osmolality 275 L (280-301) mosm/kg Total Protein 4.7 L (6.3-8.2) g/dL Albumin 2.4 L (3.5-5.0) g/dL Assessment and Plan Plan: 1. 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 improving slightly. Her baseline sodium level appears to be around 125. She was started on sodium chloride tablets twice daily in the emergency room which we will continue. We will encourage oral hydration and high protein intake. Medication list reviewed. 2. Acute COPD exacerbation currently on steroids and bronchodilators. Repeat chest x-ray showed similar findings. 3. Acute on chronic hypoxic respiratory failure on home O2 3 L 4. Severe emphysema with a prolonged history of tobacco abuse up until 2 weeks ago 5. Essential hypertension 6. Recent left hip fracture status post left hip hemiarthroplasty 7. Physical and medical debility 8. Thrombocytosis: Probably reactive due to recent surgery. Patient was seen and evaluated by hematology 9. Anemia of chronic disease 10. Fluid overload patient received 2 doses of IV Lasix. She's been restarted on her oral Lasix, at this time we are holding Lasix per nephrology consultation. Also Zoloft has been discontinued per nephrology consultation will continue to monitor will recheck in a.m.
[2017-08-26] MEDS: ALPRAZolam 0.5 MG TAB PO PRN (16:23)
[2017-08-26] MEDS: CALCIUM CARB-VIT D 500MG-200UN 1 EACH TAB PO SCH (16:23)
[2017-08-26] MEDS: ACETAMINOPHEN TAB 325 MG TAB PO PRN (16:23)
[2017-08-26 19:50] LABS: Anion Gap 8 mmol/L; Blood Urea Nitrogen 32 mg/dL (7-17); Calcium 8.3 mg/dL (8.4-10.2); Carbon Dioxide 30 mmol/L (22-30); Chloride 90 mmol/L (98-107); Glucose 133 mg/dL (74-99); Non-African American GFR(MDRD) >60 (>60 ml/min/1.73 sqM); Potassium 4.2 mmol/L (3.5-5.1); Sodium 128 mmol/L (137-145)
[2017-08-26] MEDS: MONTELUKAST 10 MG TAB PO SCH (22:03)
[2017-08-26] MEDS: MELATONIN 1 MG TAB PO SCH (22:04)
[2017-08-26] MEDS: ATORVASTATIN 10 MG TAB PO SCH (22:04)
[2017-08-26] MEDS: DONEPEZIL 10 MG TAB PO SCH (22:04)
[2017-08-27 02:41] LABS: Potassium,Urine Random 29.8 mmol/L
[2017-08-27] MEDS: LEVOTHYROXINE 88 MCG TAB PO SCH (06:31)
[2017-08-27 07:29] LABS: ALT 35 U/L (9-52); AST 20 U/L (14-36); Alkaline Phosphatase 69 U/L (38-126); Anion Gap 1 mmol/L; Blood Urea Nitrogen 32 mg/dL (7-17); Calcium 8.1 mg/dL (8.4-10.2); Carbon Dioxide 35 mmol/L (22-30); Chloride 92 mmol/L (98-107); Glucose 78 mg/dL (74-99); Non-African American GFR(MDRD) >60 (>60 ml/min/1.73 sqM); Potassium 4.2 mmol/L (3.5-5.1); Sodium 128 mmol/L (137-145); Total Bilirubin <0.1 mg/dL (0.2-1.3); Total Protein 3.9 g/dL (6.3-8.2)
[2017-08-27] MEDS: IPRATROPIUM-ALBUTEROL 3 ML NEB INHALATION SCH ×2 (07:34→11:55)
[2017-08-27] MEDS: BUDESONIDE 0.5 MG/2 ML NEBU INHALATION SCH (07:34)
[2017-08-27 07:43] VITALS: BP 135/63; RESP 16; TEMP 98
[2017-08-27] MEDS: HEPARIN SODIUM,PORCINE 5,000 UNIT/ML 1 ML VIAL SQ SCH (08:26)
[2017-08-27] MEDS: SENNOSIDES-DOCUSATE SODIUM 1 EACH TAB PO SCH (08:26)
[2017-08-27] MEDS: ASPIRIN 325 MG TAB PO SCH (08:26)
[2017-08-27] MEDS: predniSONE 20 MG TAB PO SCH (08:26)
[2017-08-27] MEDS: SODIUM CHLORIDE TAB 1 GM TAB PO SCH (08:27)
[2017-08-27] MEDS: ACETAMINOPHEN TAB 325 MG TAB PO PRN (08:30)
[2017-08-27] MEDS ORDERED: FUROSEMIDE 20 MG TAB PO SCH (09:00)
--- NOTE | 2017-08-27 10:14 | ECHOF ---
Referral Reason:pleural effusion MEASUREMENTS -------- HEIGHT: 149.9 cm WEIGHT: 42.6 kg BP: 109/53 RVIDd: 2.4 cm (< 3.3) IVSd: 0.9 cm (0.6 - 1.1) LVIDd: 3.5 cm (3.9 - 5.3) LVPWd: 0.8 cm (0.6 - 1.1) IVSs: 1.3 cm LVIDs: 2.0 cm LVPWs: 1.1 cm LA Diam: 2.5 cm (2.7 - 3.8) LAESV Index (A-L): 24.63 ml/m Ao Diam: 2.5 cm (2.0 - 3.7) AV Cusp: 1.4 cm (1.5 - 2.6) EPSS: 0.3 cm MV E Carlitos: 0.95 m/s MV DecT: 232 ms MV A Carlitos: 1.03 m/s MV E/A Ratio: 0.92 AV maxP.72 mmHg AV meanP.17 mmHg RAP: 5.00 mmHg RVSP: 38.82 mmHg MV EF SLOPE: 31.38 mm/s (70 - 150) MV EXCURSION: 1.38 cm (> 18.000) FINDINGS -------- Sinus rhythm with extra systolic beats. This was a technically good study. The left ventricular size is normal. Left ventricular wall thickness is normal. Overall left vent ricular systolic function is normal with, an EF between 55 - 60 %. The right ventricle is normal in size. Normal LA size by volume 22+/-6 ml/m2. The right atrium is normal in size. There is mild to moderate aortic valve sclerosis. There is mild aortic stenosis present. Peak/marcell n gradient across the Aortic Valve is 16.72mmHg / 9.17mmHg. Mild mitral annular calcification present. Mild mitral regurgitation is present. Mild tricuspid regurgitation present. There is mild pulmonary hypertension. The right ventricular systolic pressure, as measured by Doppler, is 38.82mmHg. There is no pulmonic regurgitation present. The aortic root size is normal. Normal inferior vena cava with normal inspiratory collapse consistent with estimated right atrial pre ssure of 5 mmHg. There is no pericardial effusion. CONCLUSIONS -------- 1. Sinus rhythm with extra systolic beats. 2. This was a technically good study. 3. Left ventricular wall thickness is normal. 4. Overall left ventricular systolic function is normal with, an EF between 55 - 60 %. 5. Normal LA size by volume 22+/-6 ml/m2. 6. There is mild to moderate aortic valve sclerosis. 7. There is mild aortic stenosis present. 8. Peak/mean gradient across the Aortic Valve is 16.72mmHg / 9.17mmHg. 9. Mild mitral annular calcification present. 10. Mild mitral regurgitation is present. 11. Mild tricuspid regurgitation present. 12. There is mild pulmonary hypertension. 13. There is no pulmonic regurgitation present. 14. The aortic root size is normal. 15. Normal inferior vena cava with normal inspiratory collapse consistent with estimated right atrial pressure of 5 mmHg. 16. There is no pericardial effusion. RAG COLLECTOR: ELYSSA Malik
--- NOTE | 2017-08-27 10:25 | P.PN ---
Subjective Progress Note Date: 08/27/17 Principal diagnosis: Bilateral pleural effusions, hyponatremia, SIADH, COPD 87-year-old here patient, a chronic smoker with known history of severe emphysema, who came into the hospital because of increased shortness of breath and the patient was diagnosed having an acute COPD exacerbation. The patient was also diagnosed to have a hypovolemic hyponatremia with a component of SIADH. I was asked to evaluate this patient because of pleural effusions and I was asked to make further recommendations regarding this ongoing issue. On 08/27/2017 patient is seen in follow-up on medical surgical floor. She denies any acute distress, resting comfortably in bed, currently on 4 -5 L per nasal cannula With O2 saturation 99%. She has had some low grade fevers of 99.2 -99.4 yesterday. Urine sodium remained stable at 128 patient is on sodium and chloride tablets twice a day. Echocardiogram has been ordered and is pending. Lasix has been discontinued, patient's oral intake remains poor, but she does drink ensure supplemental nutrition. No edema in bilateral lower extremities, no worsening dyspnea at rest. She continues on Pulmicort, DuoNeb, Singulair, and oral prednisone for her COPD. Patient's family has requested information on hospice and currently discussing transfer back to the residential under hospice care. Objective - Vital Signs Vital signs: Vital Signs Temp 98.0 F 08/27/17 07:00 Pulse 96 08/27/17 07:47 Resp 16 08/27/17 07:00 BP 135/63 08/27/17 07:00 Pulse Ox 99 08/27/17 07:00 Intake & Output 08/26/17 08/27/17 08/27/17 18:59 06:59 18:59 Intake Total 240 400 Output Total 1425 650 Balance -1185 -250 Intake: Intake, IV Titration 400 Amount Sodium Chloride 0.9% 1, 400 000 ml @ 50 mls/hr IV . Q20H [facility] Rx#:[id number] Oral 240 Output: Urine 1425 650 Other: Voiding Method Indwelling Catheter Indwelling Catheter # Bowel Movements 0 0 - Exam GENERAL EXAM: Thin, frail elderly female. Alert, active, comfortable in no apparent distress. HEAD: Normocephalic. EYES: Normal reaction of pupils, equal size. NOSE: Clear with pink turbinates. THROAT: No erythema or exudates. NECK: No masses, positive JVD. CHEST: No chest wall deformity. LUNGS: Equal air entry with no crackles, wheeze, rhonchi or dullness. Diminished at the bases bilaterally. CVS: S1 and S2 normal with no audible mumurs, regular rhythm. ABDOMEN: No hepatosplenomegaly, normal bowel sounds, no guarding or rigidity. SPINE: No scoliosis or deformity SKIN: No rashes CENTRAL NERVOUS SYSTEM: No focal deficits, tone is normal in all 4 extremities. - Labs CBC & Chem 7: 08/26/17 08:15 08/27/17 06:54 Labs: Abnormal Lab Results - Last 24 Hours (Table) 08/26/17 08/27/17 Range/Units 19:20 06:54 Sodium 128 L 128 L (137-145) mmol/L Chloride 90 L 92 L (98-107) mmol/L Carbon Dioxide 35 H (22-30) mmol/L BUN 32 H 32 H (7-17) mg/dL Glucose 133 H (74-99) mg/dL Osmolality 277 L (280-301) mosm/kg Calcium 8.3 L 8.1 L (8.4-10.2) mg/dL Total Bilirubin <0.1 L (0.2-1.3) mg/dL Total Protein 3.9 L (6.3-8.2) g/dL Albumin 1.9 L (3.5-5.0) g/dL TSH 9.690 H (0.465-4.680) mIU/L Assessment and Plan Plan: Plan: assessment 1. bilateral pleural effusion, echocardiogram from 08/27/2017 shows EF between 55-60%, with mild MR and TR, and mild pulmonary hypertension. 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 3 COPD 4 metabolic alkalosis secondary to diuresis, Lasix has been put on hold 5 hypertension 6 hypothyroidism 7 hyperlipidemia 8 dementia 9 recent fall with fracture of the hip status post ORIF. 10 physical and medical debility. Patient and patient's family are considering hospice care Plan: There is no need for thoracentesis. The pleural effusions are small. Oxygenation is stable. No worsening dyspnea. Nephrology input was noted and appreciated. Echo cardiogram showed EF between 55-60% with mild pulmonary hypertension. Continue bronchodilators. We'll continue to follow. I performed a history & physical examination of the patient and discussed their management with my nurse practitioner, Janie Maynard. I reviewed the nurse practitioner's note and agree with the documented findings and plan of care. Lung sounds are clear to auscultation diminished at bilateral bases. No signs of worsening dyspnea. Oxygenation has remained stable. Patient and the family are considering transfer back to the [facility] where under the hospice care. I attest the documentation by the nurse practitioner. Time with Patient: Less than 30
[2017-08-27 12:08] VITALS: PULSE 90
--- NOTE | 2017-08-27 13:16 | P.DS ---
Providers Date of admission: 08/17/17 20:52 Expected date of discharge: 08/27/17 Attending physician: Sabra Chaudhari Consults: 08/20/17 11:59 Consult Physician Routine Consulting Provider: Cesar Sanabria Consult Reason/Comments: Thrombocytosis Do you want consulting provider notified?: Yes 08/25/17 16:54 Consult Physician Routine Consulting Provider: Jason Rothman Consult Reason/Comments: pleural effusion Do you want consulting provider notified?: Yes 08/25/17 16:55 Consult Physician Routine Consulting Provider: Nury Dugan Consult Reason/Comments: Hyponatremia Do you want consulting provider notified?: Yes Primary care physician: [facility] Hospital Course: 1. Hypovolemic hyponatremia, with a component of SIADH. She was started on sodium chloride tablets twice daily. Encourage oral hydration and high protein intake. Medication list reviewed, Zoloft discontinued 2. Acute COPD exacerbation currently on steroids and bronchodilators. Repeat chest x-ray showed stable findings. 3. Acute hypoxic respiratory failure on home O2 4. Severe emphysema with a prolonged history of tobacco abuse up until 2 weeks ago 5. Essential hypertension 6. Recent left hip fracture status post left hip hemiarthroplasty 7. Physical and medical debility 8. Thrombocytosis: May be reactive. Seen and evaluated by hematology. Platelet count improving - Continue low-dose prednisone chronically - Plan to discharge to [facility] for physical therapy - Goals of care discussed with patient and her daughter, patient is DO NOT RESUSCITATE/DO NOT INTUBATE and no hospitalization Patient Condition at Discharge: Fair Plan - Discharge Summary New Discharge Prescriptions: New Acetaminophen Tab [Tylenol] 650 mg PO Q6HR PRN tab PRN Reason: Mild Pain Or Fever > 100.5 Melatonin 2 mg PO HS tab Sodium Chloride Tab 1 gm PO BID #30 tab Aspirin EC [Ecotrin Low Dose] 81 mg PO DAILY #30 tablet. predniSONE 5 mg PO DAILY #30 tab Continue Budesonide [Pulmicort] 0.5 mg INHALATION RT-BID Montelukast Sodium [Singulair] 10 mg PO HS Levothyroxine Sodium [Synthroid] 88 mcg PO DAILY amLODIPine [Norvasc] 10 mg PO DAILY@1200 Donepezil [Aricept] 10 mg PO HS Calcium Carb-Vit D 500Mg-200Un [Oscal 500+D] 2 tab PO DAILY@1800 Sennosides-Docusate Sodium [Senokot-S] 1 tab PO BID #60 tablet Ipratropium-Albuterol Nebulize [Duoneb 0.5 mg-3 mg/3 ml Soln] 3 ml INHALATION RT-QID PRN #0 PRN Reason: Shortness Of Breath Discontinued Sertraline HCl 50 mg PO DAILY predniSONE 10 mg PO DAILY Simvastatin [Zocor] 20 mg PO HS Enalapril [Vasotec] 20 mg PO BID Acetaminophen [Tylenol] 500 mg PO Q4-6H PRN #90 tab PRN Reason: Pain Aspirin 325 mg PO BID@799,1999 Discharge Medication List Budesonide [Pulmicort] 0.5 mg INHALATION RT-BID 05/25/16 [History] Levothyroxine Sodium [Synthroid] 88 mcg PO DAILY 05/25/16 [History] Montelukast Sodium [Singulair] 10 mg PO HS 05/25/16 [History] amLODIPine [Norvasc] 10 mg PO DAILY@1200 05/25/16 [History] Calcium Carb-Vit D 500Mg-200Un [Oscal 500+D] 2 tab PO DAILY@1800 08/08/17 [ History] Donepezil [Aricept] 10 mg PO HS 08/08/17 [History] Sennosides-Docusate Sodium [Senokot-S] 1 tab PO BID #60 tablet 08/10/17 [Rx] Ipratropium-Albuterol Nebulize [Duoneb 0.5 mg-3 mg/3 ml Soln] 3 ml INHALATION RT -QID PRN #0 08/13/17 [Rx] Acetaminophen Tab [Tylenol] 650 mg PO Q6HR PRN tab 08/22/17 [Rx] Melatonin 2 mg PO HS tab 08/22/17 [Rx] Sodium Chloride Tab 1 gm PO BID #30 tab 08/22/17 [Rx] Aspirin EC [Ecotrin Low Dose] 81 mg PO DAILY #30 tablet. 08/27/17 [Rx] predniSONE 5 mg PO DAILY #30 tab 08/27/17 [Rx] Follow up Appointment(s)/Referral(s): Sabra Chaudhari MD [STAFF PHYSICIAN] - 1 Week Patient Instructions/Handouts: Hyponatremia (DC) Discharge Disposition: TRANSFER TO SNF/F
--- NOTE | 2017-08-27 22:00 | PN ---
PROGRESS NOTE Patient is seen for followup for hyponatremia. Her serum sodium has improved to 128 staying about the same for the last couple of days. The patient has been receiving p.o. Lasix. It appears to be secondary to SIADH with high urine osmolality at 477 and 567. Currently patient is comfortable. She denies any significant complaints. Blood pressure was 135/63. Examination of the heart S1, S2. Examination of the lungs bilateral breath sounds are heard. Abdomen is soft, nontender. Heart rate 66 per minute. Patient is afebrile. 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 Patient moving all 4 extremities. LAB: Show sodium 128, potassium 4.2, BUN 32, serum creatinine 0.6, hemoglobin 8.7 g/dL. ASSESSMENT: Euvolemic hyponatremia secondary to Syndrome of inappropriate antidiuretic hormone , maintained on Lasix, which the patient can continue as outpatient. She is also encouraged to increase protein intake and maintain fluid restriction upon discharge. She should be followed up as outpatient. Patient is maintained on sodium chloride tabs. Currently, she is not hypertensive and this will need to be monitored as well as outpatient. MMODL / IJN: [id number] /
== END 2017-08-27 15:38 | DRG 643 ==
LOC: EC 18:09 → 4MS4W 20:52
PROVIDERS: ADMIT Internal Medicine; ATTEND Internal Medicine
DX: E22.2 Syndrome of inappropriate secretion of antidiuretic hormone (principal); J96.21 Acute and chronic respiratory failure with hypoxia; J90 Pleural effusion, not elsewhere classified; E87.3 Alkalosis; J44.1 Chronic obstructive pulmonary disease with (acute) exacerbation; E46 Unspecified protein-calorie malnutrition; I10 Essential (primary) hypertension; R53.81 Other malaise; Z96.642 Presence of left artificial hip joint; F32.9 Major depressive disorder, single episode, unspecified; F03.90 Unspecified dementia, unspecified severity, without behavioral disturbance, psychotic disturbance, mood disturbance, and anxiety; K21.9 Gastro-esophageal reflux disease without esophagitis; E78.5 Hyperlipidemia, unspecified; D47.3 Essential (hemorrhagic) thrombocythemia; Z66 Do not resuscitate; R62.7 Adult failure to thrive; D63.8 Anemia in other chronic diseases classified elsewhere; T50.2X5A Adverse effect of carbonic-anhydrase inhibitors, benzothiadiazides and other diuretics, initial encounter; E03.9 Hypothyroidism, unspecified; Z96.612 Presence of left artificial shoulder joint; R33.9 Retention of urine, unspecified; E87.70 Fluid overload, unspecified; I27.20 Pulmonary hypertension, unspecified; Z88.6 Allergy status to analgesic agent; Z99.81 Dependence on supplemental oxygen; Z82.5 Family history of asthma and other chronic lower respiratory diseases; Z88.8 Allergy status to other drugs, medicaments and biological substances; Z79.82 Long term (current) use of aspirin; Z79.899 Other long term (current) drug therapy; Z79.52 Long term (current) use of systemic steroids; Z80.0 Family history of malignant neoplasm of digestive organs; Z87.891 Personal history of nicotine dependence
CPT/HCPCS: 36415; 51702; 71010; 71020; 80048; 80053; 81003; 82024; 82272; 82306; 82533; 82570; 82607; 82728; 82747; 83540; 83550; 83605; 83930; 83935; 84133; 84300; 84439; 84443; 85025; 85027; 86140; 87086; 93005; 93306; 94640; 94760; 96360; 96361; 99285